=== PATIENT | male | born 1940 | race Caucasian/White ===

== ENCOUNTER 2020-10-01 07:10 | Outpatient (REF) | payer MEDICARE, SELFPAY ==
[2020-10-01 08:22] LABS: MANUAL DIFF FLAG NO
[2020-10-01 08:35] LABS: Basophils Percent Auto 0.3 % (0-2); Eosinophils Absolute Auto 0.3 X10*3/uL (0.0-0.4); Eosinophils Percent Auto 3.9 % (0-4); Hemoglobin 10.7 g/dl (14.0-18.0); Imm Gran Abs Auto 0.07 X10*3/uL (0.00-0.03); Lymphocytes Absolute Auto 1.9 X10*3/uL (1.2-4.9); Lymphocytes Percent Auto 28.5 % (20-40); Mean Corpuscular HGB Conc 32.4 g/dl (31.0-36.0); Mean Corpuscular Hemoglobin 29.6 pg (27.0-33.0); Mean Corpuscular Volume 91.4 fL (80-98); Mean Platelet Volume 11.4 fL (9.4-12.4); Monocytes Absolute Auto 0.4 X10*3/uL (0.1-1.2); Monocytes Percent Auto 6.5 % (2-11); Neutrophils Percent Auto 59.8 % (45-73); Platelet Count 141 X10*3/uL (160-400); Red Blood Count 3.61 X10*6/uL (4.60-5.80); Red Cell Distribution Width 12.1 % (11.0-16.0); White Blood Count 6.7 X10*3/uL (4.8-10.8)
[2020-10-01 09:07] LABS: Alanine Aminotransferase 24 U/L (0-40); Albumin Level 3.4 g/dL (3.5-5.0); Alkaline Phosphatase 126 U/L (39-117); Anion Gap 11 (12-20); Aspartate Amino Transferase 16 U/L (5-37); Bilirubin Total 0.4 mg/dL (0.0-1.0); Blood Urea Nitrogen 40 mg/dL (9-16); Calcium 8.7 mg/dL (8.4-10.2); Carbon Dioxide 21 mmol/L (22-29); Chloride 112 mmol/L (96-108); Estimated Glomerular Filt Rate 54; Glucose Fasting 167 mg/dL (60-99); Sodium 139 mmol/L (135-145); Total Protein 5.7 g/dL (6.5-8.0)
[2020-10-01 09:15] LABS: Thyroid Stimulating Hormone 2.01 uIU/mL (0.32-4.0)
== END 2020-10-01 07:11 | disposition home or self-care (01) ==
LOC: HO.HSH3E 07:10
PROVIDERS: Visit Provider Internal Medicine
DX: E11.9 Type 2 diabetes mellitus without complications (principal)
CPT/HCPCS: 36415; 80053; 84443; 85025

== ENCOUNTER 2020-10-15 05:43 | Outpatient (REF) | payer MEDICARE, SELFPAY ==
[2020-10-15 08:21] LABS: MANUAL DIFF FLAG NO
[2020-10-15 08:24] LABS: Basophils Percent Auto 0.3 % (0-2); Eosinophils Absolute Auto 0.2 X10*3/uL (0.0-0.4); Eosinophils Percent Auto 2.9 % (0-4); Hematocrit 30.3 % (42-52); Hemoglobin 10.1 g/dl (14.0-18.0); Imm Gran Abs Auto 0.04 X10*3/uL (0.00-0.03); Imm Gran Pct Auto 0.6 % (0.0-0.4); Lymphocytes Absolute Auto 2.1 X10*3/uL (1.2-4.9); Lymphocytes Percent Auto 31.7 % (20-40); Mean Corpuscular HGB Conc 33.3 g/dl (31.0-36.0); Mean Corpuscular Hemoglobin 30.6 pg (27.0-33.0); Mean Corpuscular Volume 91.8 fL (80-98); Mean Platelet Volume 11.5 fL (9.4-12.4); Monocytes Absolute Auto 0.6 X10*3/uL (0.1-1.2); Monocytes Percent Auto 9.6 % (2-11); Neutrophils Absolute Auto 3.6 X10*3/uL (2.0-8.3); Neutrophils Percent Auto 54.9 % (45-73); Platelet Count 109 X10*3/uL (160-400); Red Cell Distribution Width 12.5 % (11.0-16.0); White Blood Count 6.5 X10*3/uL (4.8-10.8)
[2020-10-15 09:21] LABS: Alanine Aminotransferase 16 U/L (0-40); Albumin Level 3.5 g/dL (3.5-5.0); Alkaline Phosphatase 116 U/L (39-117); Anion Gap 9 (12-20); Aspartate Amino Transferase 14 U/L (5-37); Bilirubin Total 0.3 mg/dL (0.0-1.0); Blood Urea Nitrogen 34 mg/dL (9-16); Calcium 8.4 mg/dL (8.4-10.2); Carbon Dioxide 23 mmol/L (22-29); Chloride 109 mmol/L (96-108); Estimated Glomerular Filt Rate 59; Glucose Fasting 108 mg/dL (60-99); Potassium 4.3 mmol/l (3.3-5.1); Sodium 137 mmol/L (135-145); Total Protein 5.6 g/dL (6.5-8.0)
[2020-10-15 09:28] LABS: Thyroid Stimulating Hormone 1.61 uIU/mL (0.32-4.0)
== END 2020-10-15 05:44 | disposition home or self-care (01) ==
LOC: HO.HSH3E 05:43
PROVIDERS: Visit Provider Internal Medicine Medical Oncology
DX: I10 Essential (primary) hypertension (principal)
CPT/HCPCS: 36415; 80053; 84443; 85025

== ENCOUNTER 2021-02-16 06:52 | Outpatient (REF) | payer MEDICARE, SELFPAY ==
[2021-02-16 08:48] LABS: Hematocrit 34.6 % (42-52); Hemoglobin 11.3 g/dl (14.0-18.0); Mean Corpuscular HGB Conc 32.7 g/dl (31.0-36.0); Mean Corpuscular Hemoglobin 30.1 pg (27.0-33.0); Mean Corpuscular Volume 92.3 fL (80-98); Platelet Count 141 X10*3/uL (160-400); Red Blood Count 3.75 X10*6/uL (4.60-5.80); Red Cell Distribution Width 12.8 % (11.0-16.0); White Blood Count 9.6 X10*3/uL (4.8-10.8)
[2021-02-16 09:14] LABS: Alanine Aminotransferase 18 U/L (0-40); Albumin Level 3.6 g/dL (3.5-5.0); Alkaline Phosphatase 120 U/L (39-117); Anion Gap 14 (12-20); Aspartate Amino Transferase 13 U/L (5-37); Bilirubin Total 0.9 mg/dL (0.0-1.0); Blood Urea Nitrogen 29 mg/dL (9-16); Calcium 9.1 mg/dL (8.4-10.2); Carbon Dioxide 20 mmol/L (22-29); Chloride 107 mmol/L (96-108); Cholesterol 110 mg/dL; Estimated Glomerular Filt Rate 46; Glucose Random 182 mg/dL (60-115); HDL Cholesterol 20 mg/dL; LDL Cholesterol Calculated 68 mg/dl; Sodium 136 mmol/L (135-145); Total Protein 5.9 g/dL (6.5-8.0); Triglycerides 112 mg/dL
[2021-02-16 09:39] LABS: Erythrocyte Sedimentation Rate 22 MM/HR (0-15)
[2021-02-16 10:29] LABS: Estimated Average Glucose 186 mg/dL; Hemoglobin A1c % 8.1 %
[2021-02-16 17:36] LABS: Creatinine Urine 116.75 mg/dL; Microalbum/Creatinine Ratio Ur 79.6 ug/mg cr
== END 2021-02-16 06:53 | disposition home or self-care (01) ==
LOC: HO.HSH3E 06:52
PROVIDERS: Visit Provider Internal Medicine Medical Oncology
DX: I12.9 Hypertensive chronic kidney disease with stage 1 through stage 4 chronic kidney disease, or unspecified chronic kidney disease (principal); N18.9 Chronic kidney disease, unspecified; E11.22 Type 2 diabetes mellitus with diabetic chronic kidney disease
CPT/HCPCS: 36415; 80053; 80061; 82043; 83036; 85027; 85652

== ENCOUNTER 2021-05-19 16:51 | Outpatient (REF) | payer MEDICARE, SELFPAY ==
[2021-05-19 17:00] LABS: Glucose Urine UA 100 MG/DL (NEG); Leukocyte Esterase Urine NEG (NEG); Nitrite Urine NEG (NEG); Specific Gravity - Urine 1.015 (1.005-1.025); Urine Blood NEG (NEG); Urine Ketones NEG (NEG); Urine Protein NEG (NEG-TRACE)
[2021-05-19 17:02] LABS: Appearance Urine CLEAR; Color Urine YELLOW
== END 2021-05-19 16:52 | disposition home or self-care (01) ==
LOC: HO.HSH3E 16:51
PROVIDERS: Visit Provider Internal Medicine Medical Oncology
DX: R33.9 Retention of urine, unspecified (principal)
CPT/HCPCS: 81003

== ENCOUNTER 2021-09-21 10:59 | Emergency (ER) | payer MEDICARE, SELFPAY ==
[2021-09-21 11:16] VITALS: BP 110/62; PULSE 64; O2SAT 97; BMI 24.2
--- NOTE | 2021-09-21 11:19 | ED_ITS ---
HPI - Psych General Chief Complaint: Psychiatric Symptoms Stated Complaint: SECTION 12 Time Seen by Provider: 09/21/21 11:17 Source: patient and EMS History of Present Illness HPI Narrative: Mr. Lobo is a very pleasant 81 years old from the skilled nursing on a Section 12 because of SI. He denies SI to me right now he states that he feels good he to me that he will not commit suicide complaint: feels depressed Onset (ago): day(s) (2) Duration: resolved prior to arrival History of same: Yes Relieving factors: none Associated psychiatric symptoms: none Related Data Allergies Allergy/AdvReac Type Severity Reaction Status Date / Time No Known Allergies Allergy Verified 09/21/21 11:21 Review of Systems Constitutional: Constitutional: Reports no additional constitutional complaints Cardiovascular: Cardiovascular: Reports no additional cardiovascular complaints Respiratory: Respiratory: Reports no additional respiratory complaints Musculoskeletal: Musculoskeletal: Reports no additional musculoskeletal complaints Neurologic: Reports system reviewed and no additional complaints, except as documented Psychiatric: Psychiatric: Reports as per HPI and Reports depression [facility] Past Medical History [facility] Narrative: Peripheral vascular disease, hypercholesterolemia, hypertension, diabetes, 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 Social History Social History Alcohol intake: never Patient Tobacco Use Status: Never used Tobacco Use of substances other than those prescribed or required for medical reasons: No Advance Directives: No Advance Directives Information Provided: Yes Physical Exam Vital Signs: Vital Signs: BMI result Body Mass Index 24.2 Const: Other: He looks well he is no toxic-appearing he is very pleasant General: cooperative and comfortable Orientation/consciousness: oriented to person, oriented to place, oriented to time and patient oriented x3 HENMT: Head: Yes normal to inspection General nose exam: Normal external n ose present Face and sinus: Yes normal facial exam Mouth: Normal oral and palatal mucosa present Throat: Yes posterior oropharynx normal Neck: Neck: Yes normal visual inspection Chest: Chest palpation & inspection: normal inspection of the chest Resp: Effort & Inspection: normal respiratory effort Auscultation: clear to auscultation bilaterally Cardio: Jugular venous distension: no JVD Rate: regular rate GI: Inspection: Yes normal to inspection Palpation (GI): Soft to palpation, not firm and nontender Skin: General skin exam: no rashes or lesions noted and elasticity normal Neuro: General: oriented to person, oriented to place, oriented to time and patient oriented x3 Extrem: Other: Status post left AKA Course Reevaluation(s) Reevaluation #1: pt was evaluate by Crisis no Si at this time OK to go back to [place] MDM - Psych MDM Narrative Medical decision making narrative: Plan is to get a psychiatric evaluation I anticipate discharge back to skilled nursing because he is no SI Discharge Plan Discharge Clinical Impression: Depression Patient Disposition: Xfer SNF Instructions: Depression (ED) Interventions: ED Discharge Assessment Last Done: 09/21/21 14:56 Discharge Date/Time: 09/21/21 14:57
--- NOTE | 2021-09-21 12:43 | PC.NURSE ---
care team at bedside speaking with patient.
--- NOTE | 2021-09-21 14:01 | MHC.CARE ---
Pt is a 81 y/o Uzbek speaking, male who is previously unknown to the CARE Team.? Today, pt was transported to the ED via ambulance after making concerning statements to staff at the [facility] in [facility] where pt is a resident.? Pt has been medically cleared and is being assessed by the CARE Team to determine appropriate treatment recommendations. No past documented hx of mental illness, substance use or suicide attempts.? ?Pt is screened for crisis at bedside in the ED after receiving a CARE Team consult.? Pt had previously denied suicidal ideation to ED provider Dr. Troncoso.? Pt continues to deny SI to CARE Team.? Pt allegedly stated to [facility] staff ?I would shoot myself if I had a gun?.? When asked about the statement pt stated that ?I wanted to get out of that long-term!?? Pt stated that if he had a gun, he would shoot himself, if he had to ?Stay there the rest of my life.?? Pt stated that his roommate recently passed.? ?They just wait for one to , then put another one in.?? This was in relation to roommates.? ?? Pt stated he was depressed and has been for 10 years. CARE Team contacts [facility] Skate Boarder Fe Lopez who stated that pt had been residing at the [facility] home for approximately 2 years and had come to them from a rehab facility.? Since his admission to the [facility], pt has had the same roommate for the entire time.? Pt recently had a new roommate move in after his previous one in July.? She stated that he has been more depressed lately than he has been and had made a similar statement regarding a firearm to his daughter and grandson when they came to visit.? Pt has been requesting to return home but even with 24 hour care in the home, pt cannot safely function. Pt has experience a great deal of change of late, which may contribute to his elevated depression.? Pt?s daughter recently moved into his home, he lost a high school friend recently, and his roommate .? Ms. Lopez reports that pt had been teary eyed and weepy with her when last they met.? He is normally isolative, appearing content with watching TV and drinking coffee in his room.? He does have friends at the facility that will stop and visit with his throughout the day and bring him snacks. Plan is for pt to be discharged back to the [facility].? He does not meet inpatient criteria and there does not appear to be an imminent threat to his or others? safety.? This disposition is discussed with and agreed upon by ED attending physician, Dr. Troncoso and CARE Adult Crossing Guard Narinder Purcell [facility].
== END 2021-09-21 14:57 | disposition skilled nursing facility (03) ==
PROVIDERS: Emergency Provider Emergency Medicine
DX: F32.A Depression, unspecified (principal); I10 Essential (primary) hypertension; E11.9 Type 2 diabetes mellitus without complications; Z89.612 Acquired absence of left leg above knee
CPT/HCPCS: 99284

== ENCOUNTER 2022-01-11 08:27 | Outpatient (REF) | payer MEDICARE, SELFPAY ==
[2022-01-11 08:44] LABS: MANUAL DIFF FLAG NO
[2022-01-11 08:48] LABS: Basophils Percent Auto 0.3 % (0-2); Eosinophils Absolute Auto 0.2 X10*3/uL (0.0-0.4); Eosinophils Percent Auto 2.2 % (0-4); Hematocrit 34.3 % (42.0-52.0); Hemoglobin 11.5 g/dl (14.0-18.0); Imm Gran Abs Auto 0.06 X10*3/uL (0.00-0.03); Imm Gran Pct Auto 0.7 % (0.0-0.4); Lymphocytes Absolute Auto 1.6 X10*3/uL (1.2-4.9); Lymphocytes Percent Auto 18.3 % (20-40); Mean Corpuscular HGB Conc 33.5 g/dl (31.0-36.0); Mean Corpuscular Hemoglobin 30.8 pg (27.0-33.0); Mean Platelet Volume 10.7 fL (9.4-12.4); Monocytes Absolute Auto 0.5 X10*3/uL (0.1-1.2); Monocytes Percent Auto 5.2 % (2-11); Neutrophils Absolute Auto 6.5 x10*3/uL (2.0-8.3); Neutrophils Percent Auto 73.3 % (45-73); Platelet Count 138 X10*3/uL (160-400); Red Blood Count 3.73 X10*6/uL (4.60-5.80); Red Cell Distribution Width 12.8 % (11.0-16.0); White Blood Count 8.8 X10*3/uL (4.8-10.8)
[2022-01-11 09:22] LABS: Alanine Aminotransferase 25 U/L (0-40); Albumin Level 3.6 g/dL (3.5-5.0); Alkaline Phosphatase 106 U/L (39-117); Anion Gap 11 (12-20); Aspartate Amino Transferase 20 U/L (5-37); Bilirubin Total 0.3 mg/dL (0.0-1.0); Blood Urea Nitrogen 28 mg/dL (9-16); Calcium 9.5 mg/dL (8.4-10.2); Carbon Dioxide 22 mmol/L (22-29); Chloride 108 mmol/L (96-108); Estimated Glomerular Filt Rate 52; Glucose Random 236 mg/dL (60-115); Lipase 23 U/L (8-78); Potassium 4.9 mmol/L (3.3-5.1); Sodium 136 mmol/L (135-145); Total Protein 6.4 g/dL (6.5-8.0)
[2022-01-11 09:26] LABS: Amylase 66 U/L (28-100)
== END 2022-01-11 08:28 | disposition home or self-care (01) ==
LOC: HO.HSH3E 08:27
PROVIDERS: Visit Provider Internal Medicine Medical Oncology
DX: R10.9 Unspecified abdominal pain (principal); R11.10 Vomiting, unspecified
CPT/HCPCS: 36415; 80053; 82150; 83690; 85025

== ENCOUNTER 2022-02-08 05:43 | Outpatient (REF) | payer MEDICARE, SELFPAY ==
[2022-02-08 07:38] LABS: MANUAL DIFF FLAG NO
[2022-02-08 07:41] LABS: Basophils Percent Auto 0.4 % (0-2); Eosinophils Absolute Auto 0.3 X10*3/uL (0.0-0.4); Eosinophils Percent Auto 3.5 % (0-4); Hematocrit 32.9 % (42.0-52.0); Hemoglobin 10.9 g/dl (14.0-18.0); Imm Gran Abs Auto 0.04 X10*3/uL (0.00-0.03); Imm Gran Pct Auto 0.5 % (0.0-0.4); Lymphocytes Absolute Auto 1.9 X10*3/uL (1.2-4.9); Lymphocytes Percent Auto 24.7 % (20-40); Mean Corpuscular HGB Conc 33.1 g/dl (31.0-36.0); Mean Corpuscular Hemoglobin 30.4 pg (27.0-33.0); Mean Corpuscular Volume 91.9 fL (80.0-98.0); Mean Platelet Volume 11.2 fL (9.4-12.4); Monocytes Absolute Auto 0.6 X10*3/uL (0.1-1.2); Monocytes Percent Auto 7.7 % (2-11); Neutrophils Absolute Auto 4.9 x10*3/uL (2.0-8.3); Neutrophils Percent Auto 63.2 % (45-73); Platelet Count 117 X10*3/uL (160-400); Red Blood Count 3.58 X10*6/uL (4.60-5.80); Red Cell Distribution Width 12.9 % (11.0-16.0); White Blood Count 7.8 X10*3/uL (4.8-10.8)
[2022-02-08 07:54] LABS: Alanine Aminotransferase 23 U/L (0-40); Albumin Level 3.4 g/dL (3.5-5.0); Alkaline Phosphatase 94 U/L (39-117); Anion Gap 10 (12-20); Aspartate Amino Transferase 14 U/L (5-37); Bilirubin Total 0.4 mg/dL (0.0-1.0); Blood Urea Nitrogen 33 mg/dL (9-16); Calcium 9.2 mg/dL (8.4-10.2); Carbon Dioxide 23 mmol/L (22-29); Chloride 107 mmol/L (96-108); Estimated Glomerular Filt Rate 46; Glucose Fasting 209 mg/dL (60-99); Lipase 19 U/L (8-78); Potassium 4.6 mmol/L (3.3-5.1); Sodium 135 mmol/L (135-145); Total Protein 5.9 g/dL (6.5-8.0)
[2022-02-08 07:57] LABS: Amylase 57 U/L (28-100)
[2022-02-08 08:15] LABS: Erythrocyte Sedimentation Rate 14 MM/HR (0-15)
== END 2022-02-08 05:44 | disposition home or self-care (01) ==
LOC: HO.HSH3E 05:43
PROVIDERS: Visit Provider Internal Medicine Medical Oncology
DX: K85.90 Acute pancreatitis without necrosis or infection, unspecified (principal)
CPT/HCPCS: 36415; 80053; 82150; 83690; 85025; 85652

== ENCOUNTER 2022-06-14 07:53 | Outpatient (REF) | payer MEDICARE, SELFPAY | END 2022-06-14 07:54 | disposition home or self-care (01) | LOC: HO.HSH3E 07:53 | PROVIDERS: Visit Provider Internal Medicine Medical Oncology | DX: Z13.89 Encounter for screening for other disorder (principal) ==

== ENCOUNTER 2022-09-22 11:16 | Outpatient (REF) | payer MEDICARE, SELFPAY ==
[2022-09-22 13:40] LABS: Anion Gap 13 (12-20); Blood Urea Nitrogen 37 mg/dL (9-16); Calcium 8.4 mg/dL (8.4-10.2); Carbon Dioxide 19 mmol/L (22-29); Chloride 110 mmol/L (96-108); Estimated Glomerular Filt Rate 40; Glucose Random 293 mg/dL (60-115); Potassium 4.6 mmol/L (3.3-5.1); Sodium 137 mmol/L (135-145)
== END 2022-09-22 11:17 | disposition home or self-care (01) ==
LOC: HO.HSH1N 11:16
PROVIDERS: Visit Provider Internal Medicine Interventional Cardiology
DX: U07.1 COVID-19 (principal); N18.30 Chronic kidney disease, stage 3 unspecified
CPT/HCPCS: 36415; 80048

== ENCOUNTER 2022-09-23 11:26 | Outpatient (REF) | payer MEDICARE, SELFPAY ==
[2022-09-23 08:05] LABS: MANUAL DIFF FLAG NO
[2022-09-23 08:07] LABS: Basophils Percent Auto 0.4 % (0-2); Eosinophils Absolute Auto 0.2 X10*3/uL (0.0-0.4); Eosinophils Percent Auto 3.1 % (0-4); Hematocrit 30.4 % (42.0-52.0); Hemoglobin 10.2 g/dl (14.0-18.0); Imm Gran Abs Auto 0.06 X10*3/uL (0.00-0.03); Imm Gran Pct Auto 1.1 % (0.0-0.4); Lymphocytes Absolute Auto 1.3 X10*3/uL (1.2-4.9); Lymphocytes Percent Auto 24.2 % (20-40); Mean Corpuscular HGB Conc 33.6 g/dl (31.0-36.0); Mean Corpuscular Hemoglobin 30.7 pg (27.0-33.0); Mean Corpuscular Volume 91.6 fL (80.0-98.0); Mean Platelet Volume 11.2 fL (9.4-12.4); Monocytes Absolute Auto 0.8 X10*3/uL (0.1-1.2); Monocytes Percent Auto 14.1 % (2-11); Neutrophils Absolute Auto 3.2 x10*3/uL (2.0-8.3); Neutrophils Percent Auto 57.1 % (45-73); Red Blood Count 3.32 X10*6/uL (4.60-5.80); Red Cell Distribution Width 13.2 % (11.0-16.0); White Blood Count 5.5 X10*3/uL (4.8-10.8)
[2022-09-23 08:09] LABS: Platelet Count 96 X10*3/uL (160-400)
[2022-09-23 08:32] LABS: Albumin Level 3.4 g/dL (3.5-5.0)
[2022-09-23 08:40] LABS: Cholesterol 116 mg/dL; HDL Cholesterol 20 mg/dL; LDL Cholesterol Calculated 76 mg/dl; Triglycerides 102 mg/dL
[2022-09-23 08:41] LABS: Estimated Average Glucose 186 mg/dL; Hemoglobin A1c % 8.1 %
[2022-09-23 14:17] LABS: PSA,Total (Free>4and<10) 3.09 ng/mL (0.00-4.00)
== END 2022-09-23 11:27 | disposition home or self-care (01) ==
LOC: HO.HSH1N 11:26
PROVIDERS: Visit Provider Internal Medicine Interventional Cardiology
DX: Z12.5 Encounter for screening for malignant neoplasm of prostate (principal); U07.1 COVID-19
CPT/HCPCS: 36415; 80061; 82040; 83036; 84153; 85025

== ENCOUNTER 2023-01-10 06:50 | Outpatient (REF) | payer MEDICARE, SELFPAY ==
[2023-01-10 07:21] LABS: MANUAL DIFF FLAG NO
[2023-01-10 07:29] LABS: Basophils Percent Auto 0.4 % (0-2); Eosinophils Absolute Auto 0.2 X10*3/uL (0.0-0.4); Eosinophils Percent Auto 3.6 % (0-4); Hematocrit 30.2 % (42.0-52.0); Hemoglobin 9.8 g/dl (14.0-18.0); Imm Gran Abs Auto 0.03 X10*3/uL (0.00-0.03); Imm Gran Pct Auto 0.4 % (0.0-0.4); Lymphocytes Absolute Auto 1.5 X10*3/uL (1.2-4.9); Lymphocytes Percent Auto 21.7 % (20-40); Mean Corpuscular HGB Conc 32.5 g/dl (31.0-36.0); Mean Corpuscular Hemoglobin 30.2 pg (27.0-33.0); Mean Corpuscular Volume 93.2 fL (80.0-98.0); Mean Platelet Volume 10.5 fL (9.4-12.4); Monocytes Absolute Auto 0.5 X10*3/uL (0.1-1.2); Monocytes Percent Auto 7.6 % (2-11); Neutrophils Absolute Auto 4.4 x10*3/uL (2.0-8.3); Neutrophils Percent Auto 66.3 % (45-73); Platelet Count 109 X10*3/uL (160-400); Red Blood Count 3.24 X10*6/uL (4.60-5.80); Red Cell Distribution Width 12.8 % (11.0-16.0); White Blood Count 6.7 X10*3/uL (4.8-10.8)
[2023-01-10 08:00] LABS: Alanine Aminotransferase 10 U/L (0-40); Albumin Level 3.3 g/dL (3.5-5.0); Alkaline Phosphatase 104 U/L (39-117); Anion Gap 9 (12-20); Aspartate Amino Transferase 11 U/L (5-37); Bilirubin Total 0.3 mg/dL (0.0-1.0); Blood Urea Nitrogen 35 mg/dL (9-16); Calcium 8.5 mg/dL (8.4-10.2); Carbon Dioxide 22 mmol/L (22-29); Chloride 110 mmol/L (96-108); Cholesterol 119 mg/dL; Estimated Glomerular Filt Rate 37; Glucose Fasting 302 mg/dL (60-99); HDL Cholesterol 19 mg/dL; LDL Cholesterol Calculated 75 mg/dl; Potassium 5.2 mmol/L (3.3-5.1); Sodium 136 mmol/L (135-145); Total Protein 5.6 g/dL (6.5-8.0); Triglycerides 125 mg/dL
[2023-01-10 08:15] LABS: Prostate Specific Antigen 5.21 ng/mL (<0.05-4.0)
[2023-01-10 08:24] LABS: Estimated Average Glucose 180 mg/dL; Hemoglobin A1c % 7.9 %
== END 2023-01-10 06:51 | disposition home or self-care (01) ==
LOC: HO.HSH 06:50
PROVIDERS: Visit Provider Internal Medicine Medical Oncology
DX: Z12.5 Encounter for screening for malignant neoplasm of prostate (principal); E11.9 Type 2 diabetes mellitus without complications; N18.30 Chronic kidney disease, stage 3 unspecified; E78.5 Hyperlipidemia, unspecified
CPT/HCPCS: 36415; 80053; 80061; 83036; 84153; 85025

== ENCOUNTER 2023-05-03 06:01 | Outpatient (REF) | payer MEDICARE, SELFPAY | END 2023-05-03 06:02 | disposition home or self-care (01) | LOC: HO.HSH3E 06:01 | PROVIDERS: Visit Provider Internal Medicine Medical Oncology | DX: Z13.89 Encounter for screening for other disorder (principal) ==

== ENCOUNTER 2023-05-31 09:51 | Outpatient (AMB) | payer MEDICARE, SELFPAY ==
--- NOTE | 2023-05-31 11:08 | HO.VETSHOME ---
Intake Intake Visit Reasons: Elevated PSA/Hx of retention Allergies No Known Allergies Allergy (Verified 05/31/23 21:45) Medication List - Last Reconciled 06/01/23 by ISAURO Zuniga-TOMAS atorvastatin 10 mg PO BEDTIME doxazosin 2 mg PO DAILY folic acid 1 mg PO DAILY insulin glargine 39 units subcut QDAY insulin lispro 6 units subcut .at noon labetalol 50 mg PO BID losartan 50 mg PO DAILY polyethylene glycol 3350 17 grams PO DAILY tamsulosin 0.8 mg PO BEDTIME HPI HPI Comments History of Present Illness Details Ed is a 82-year-old male patient who resides at [facility]. He has a past medical history of left leg [id number] amputation, atherosclerotic heart disease, BPH, chronic AFib, chronic kidney disease stage 3, hypertension, GERD, hyperlipidemia, depression, PVD, urinary retention, type 2 diabetes, osteoarthritis, and dementia. He is being followed up on today as a new patient for his history of urinary retention and elevated PSA. In discussion with the patient today he reports to be doing and feeling well. He discusses previously following up with a urology office in [place] for ongoing urinary issues. He discusses having urinary retention and incomplete bladder emptying in the past. In review of patient's chart it appears patient with previous bladder scans noting postvoid residuals of 250 to approximately 600mls. Patient with a previous history of indwelling Ni catheter approximately 2 years ago for urinary retention. Patient is currently on doxazosin 2 mg daily and tamsulosin 0.8 mg daily. In review of patient's chart it appears PSA 01/15--5.2. Discussed at length potential causes and affects of incomplete bladder emptying and urinary retention. Discussed obtaining redraw of PSA with no caffeine morning of, no sex/ejaculation the night before, no heavy lifting 1-2 days prior. Discussed obtaining retroperitoneal ultrasound for further assessment evaluation. He otherwise denies hematuria, dysuria, foul smelling urine, changes to urinary stream, flank pain, fever, and or chills. KATHRYN performed; smooth; no masses, or nodules palpated. Call to patient's son to discuss plan of care. All questions were answered. He is agreeable to obtaining retroperitoneal ultrasound and redraw of PSA at this time. [facility] Medical History (Updated 05/31/23 @ 22:00 by Purnima Pineda [facility]) Chronic atrial fibrillation, unspecified Unspecified dementia, unspecified severity, without behavioral disturbance, psychotic disturbance, mood disturbance, and anxiety Gastro-esophageal reflux disease without esophagitis Major depressive disorder, recurrent, mild Unspecified osteoarthritis, unspecified site Type 2 diabetes mellitus without complications Personal history of COVID-19 Type 2 diabetes mellitus with other circulatory complications Chronic kidney disease, stage 3 unspecified Essential (primary) hypertension Retention of urine, unspecified Hyperlipidemia, unspecified Benign prostatic hyperplasia without lower urinary tract symptoms Atherosclerotic heart disease of [place] coronary artery without angina pectoris jail (current) use of insulin Acquired absence of left leg below knee Peripheral vascular disease, unspecified Surgical History (Updated 05/31/23 @ 12:07 by Raymond Borrego) Presence of aortocoronary bypass graft Social History Alcohol intake: never Patient Tobacco Use Status: Never used Tobacco Assessment & Plan Assessment & Plan (1) Incomplete bladder emptying: Code(s): R33.9 - Retention of urine, unspecified (2) Elevated PSA: Code(s): R97.20 - Elevated prostate specific antigen [PSA] (3) Retention of urine, unspecified: Code(s): R33.9 - Retention of urine, unspecified Plan Discussed obtaining redraw of PSA free and total; with no caffeine morning of, no heavy lifting 1-2 days prior, and no sex/masturbation night before lab draw. Discussed obtaining retroperitoneal ultrasound for further assessment evaluation. Discussed at length potential causes and affects of urinary retention and incomplete bladder emptying. Call to patient's son to discuss plan of care Continue doxazosin 2 mg daily and flomax 0.8mg as prescribed All questions were answered Follow-up once imaging and labs are completed; or sooner with any questions, concerns, and or issues. Patient Instructions: The patient had an opportunity to ask questions regarding the treatment plan. All questions were answered. Physical exam, labs, and imaging were discussed and reviewed in detail. As well as risks, benefits, and discussion of treatment choices. No major barriers to understanding were identified. The patient expressed understanding and agreement with the above treatment plan. The patient was made aware they should contact our office by phone for worsening of their current condition, the appearance of new symptoms, or with any questions or concerns. Compliance is encouraged with any medications and follow up testing that is ordered. It is a privilege to be allowed the opportunity to participate in? your urological care.? Again, if you have any questions or concerns If you have any questions or concerns please do not hesitate to contact me. The office is [phone]. This note is constructed using voice recognition software. While every effort has been made to ensure accuracy rating clerk errors may have been included. Yours sincerely, BETHANY Zuniga Coding Level of Care Code 69895-[id number] Fac initial, low Diagnoses Incomplete bladder emptying R33.9 Elevated PSA R97.20 Retention of urine, unspecified R33.9 Time Spent (min) 25
== END 2023-05-31 13:30 | disposition home or self-care (01) ==
LOC: HO.HUSV 09:51
PROVIDERS: Visit Provider Nurse Practitioner Family
DX: R33.9 Retention of urine, unspecified (principal); R97.20 Elevated prostate specific antigen [PSA]
CPT/HCPCS: 99304

== ENCOUNTER 2023-06-02 06:25 | Outpatient (REF) | payer MEDICARE, SELFPAY ==
[2023-06-04 11:13] LABS: Free Prostate Spec Ag 0.8 ng/mL; Percent Free Prostate Spec Ag 30 % (calc) (>25); Prostate Specific Ag Total 2.7 ng/mL (< OR = 4.0)
== END 2023-06-02 06:26 | disposition home or self-care (01) ==
LOC: HO.HSH3E 06:25
PROVIDERS: Visit Provider Nurse Practitioner Acute Care
DX: N40.0 Benign prostatic hyperplasia without lower urinary tract symptoms (principal); E11.9 Type 2 diabetes mellitus without complications
CPT/HCPCS: 36415; 84154

== ENCOUNTER 2023-06-20 05:38 | Outpatient (REF) | payer MEDICARE, SELFPAY ==
[2023-06-20 07:08] LABS: MANUAL DIFF FLAG NO
[2023-06-20 07:25] LABS: Basophils Percent Auto 0.3 % (0-2); Eosinophils Absolute Auto 0.2 X10*3/uL (0.0-0.4); Eosinophils Percent Auto 3.7 % (0-4); Hematocrit 31.5 % (42.0-52.0); Hemoglobin 10.6 g/dl (14.0-18.0); Imm Gran Abs Auto 0.04 X10*3/uL (0.00-0.03); Imm Gran Pct Auto 0.6 % (0.0-0.4); Lymphocytes Absolute Auto 1.7 X10*3/uL (1.2-4.9); Lymphocytes Percent Auto 25.1 % (20-40); Mean Corpuscular HGB Conc 33.7 g/dl (31.0-36.0); Mean Corpuscular Hemoglobin 30.8 pg (27.0-33.0); Mean Corpuscular Volume 91.6 fL (80.0-98.0); Mean Platelet Volume 11.1 fL (9.4-12.4); Monocytes Absolute Auto 0.6 X10*3/uL (0.1-1.2); Monocytes Percent Auto 9.3 % (2-11); Platelet Count 124 X10*3/uL (160-400); Red Blood Count 3.44 X10*6/uL (4.60-5.80); Red Cell Distribution Width 12.7 % (11.0-16.0); White Blood Count 6.6 X10*3/uL (4.8-10.8)
[2023-06-20 07:26] LABS: Estimated Average Glucose 169 mg/dL; Hemoglobin A1c % 7.5 % (<6.0)
[2023-06-20 07:36] LABS: Alanine Aminotransferase 22 U/L (0-40); Albumin Level 3.3 g/dL (3.5-5.0); Alkaline Phosphatase 109 U/L (39-117); Anion Gap 12 (12-20); Aspartate Amino Transferase 19 U/L (5-37); Bilirubin Total 0.3 mg/dL (0.0-1.0); Blood Urea Nitrogen 32 mg/dL (9-16); Calcium 9.1 mg/dL (8.4-10.2); Carbon Dioxide 20 mmol/L (22-29); Chloride 111 mmol/L (96-108); Cholesterol 113 mg/dL (<200); Estimated Glomerular Filt Rate 45; Glucose Fasting 99 mg/dL (60-99); HDL Cholesterol 21 mg/dL (>40); LDL Cholesterol Calculated 75 mg/dL (<100); Potassium 5.4 mmol/L (3.3-5.1); Sodium 138 mmol/L (135-145); Triglycerides 89 mg/dL (<150)
[2023-06-20 07:49] LABS: Creatinine Urine 27.52 mg/dL; Microalbum/Creatinine Ratio Ur 457.8 ug/mg cr (<30)
[2023-06-20 07:52] LABS: Vitamin D 25-OH Total 26.2 ng/mL (>30)
== END 2023-06-20 05:39 | disposition home or self-care (01) ==
LOC: HO.HSH3E 05:38
PROVIDERS: Visit Provider Internal Medicine Medical Oncology
DX: N18.30 Chronic kidney disease, stage 3 unspecified (principal); E11.9 Type 2 diabetes mellitus without complications; E78.5 Hyperlipidemia, unspecified
CPT/HCPCS: 36415; 80053; 80061; 82043; 82306; 82570; 83036; 85025

== ENCOUNTER 2023-06-28 09:35 | Outpatient (AMB) | payer MEDICARE, SELFPAY ==
--- NOTE | 2023-06-26 09:53 | A.OFFVIS_ITS ---
Intake Intake Visit Reasons: labs- follow up Intake Note: [facility] Patient Present for LAB Follow up Urology Med: Doxazosin, Tamsulosin Antibiotic Allergy: None Blood Thinner: None Allergies No Known Allergies Allergy (Verified 06/26/23 09:55) HPI HPI Comments History of Present Illness Details Yong is a pleasant male. He is a resident of [facility]. He seen for the following urologic conditions - lower urinary tract symptoms with inco mplete bladder emptying - elevated PSA Repeat PSA 06/17 2.7 Recommend add finasteride Encourage double voiding Six month follow-up PVR Lower urinary tract symptoms Previously seen by Urology in [place] Prior urinary retention in PVR ranging from 250-600 cc Prior history of indwelling Ni catheter 2020 for urinary retention Current medications include doxazosin 2 mg and tamsulosin 0.8 mg PSA 01/15 5.2 Imaging - 06/17 bladder ultrasound incomplete bladder emptying [facility] Medical History Chronic atrial fibrillation, unspecified Unspecified dementia, unspecified severity, without behavioral disturbance, psychotic disturbance, mood disturbance, and anxiety Gastro-esophageal reflux disease without esophagitis Major depressive disorder, recurrent, mild Unspecified osteoarthritis, unspecified site Type 2 diabetes mellitus without complications Personal history of COVID-19 Type 2 diabetes mellitus with other circulatory complications Chronic kidney disease, stage 3 unspecified Essential (primary) hypertension Retention of urine, unspecified Hyperlipidemia, unspecified Benign prostatic hyperplasia without lower urinary tract symptoms Atherosclerotic heart disease of [place] coronary artery without angina pectoris intermediate (current) use of insulin Acquired absence of left leg below knee Peripheral vascular disease, unspecified Surgical History Presence of aortocoronary bypass graft Social History Alcohol intake: never Patient Tobacco Use Status: Never used Tobacco Review of Systems Const Denies chills and Denies fever(s) Card Reports no additional complaints and Denies syncope Resp Denies cough GI Denies abdominal pain and Denies heartburn Reports as per HPI and Denies change in libido Neuro Denies syncope Psych Denies change in libido Endo Denies change in libido Physical Exam Const General: cooperative, healthy appearing, comfortable and no acute distress Orientation/consciousness: patient oriented x3 HEENT Face and sinus: Yes normal facial exam Mouth: moist mucous membranes Neck Neck: Yes normal visual inspection, Yes full ROM and Yes trachea midline Chest Chest palpation & inspection: normal inspection of the chest Resp Effort & Inspection: normal respiratory effort, able to speak in complete sentences and no respiratory distress GI Inspection: Yes normal to inspection Back/Spine/Pelvis Cervical Spine: normal cervical lordosis Thoracic/Lumbar Spine: thoracic and lumbar spine normal to inspection Skin General skin exam: no rashes or lesions noted Neuro General: patient oriented x3, gait normal, tone normal and moves all extremities Extrem General: Yes normal to inspection and Yes capillary refill normal Assessment & Plan Assessment & Plan (1) Elevated PSA: Code(s): R97.20 - Elevated prostate specific antigen [PSA] (2) Incomplete bladder emptying: Code(s): R33.9 - Retention of urine, unspecified Plan Start finasteride 6 month follow-up Patient Instructions: Imaging studies, laboratory and physical exam results were discussed and reviewed in detail. No major barriers to patient understanding were identified. An opportunity to ask questions regarding the treatment plan was provided. All questions were answered. The patient expressed understanding and agreement with the above treatment plan. The patient is aware they should contact our office by phone for worsening of their current condition or the appearance of new urologic symptoms. Compliance is encouraged with any medications and followup testing that is ordered. It is a privilege to participate in the urologic care of your patient. If you have any questions or concerns regarding treatment for the above conditions, or other urologic issues, please do not hesitate to contact me. The office telephone contact is [phone]. This note is constructed using voice recognition software. While every effort has been made to ensure accuracy hvac sheet metal installer errors may have been included. Yours sincerely, Dr Maurice Lanza MD, [facility] - Urology Providers of Expert, Compassionate Care for the Genitourinary System Coding Level of Care Code 67839-[id number] Fac sub, mod Diagnoses Elevated PSA R97.20 Incomplete bladder emptying R33.9
== END 2023-06-28 16:31 | disposition home or self-care (01) ==
LOC: HO.HUSV 09:35
PROVIDERS: Visit Provider Urology
DX: R97.20 Elevated prostate specific antigen [PSA] (principal); R33.9 Retention of urine, unspecified
CPT/HCPCS: 99309

== ENCOUNTER 2023-10-04 15:19 | Outpatient (REF) | payer MEDICARE, SELFPAY ==
[2023-10-04 15:47] LABS: Appearance Urine Turbid; Color Urine Yellow; Glucose Urine UA >=1000 mg/dL (Negative); Leukocyte Esterase Urine Moderate (2+) (Negative); Nitrite Urine Negative (Negative); Specific Gravity - Urine 1.015 (1.005-1.025); UMIC TRIGGER UA YES; Urine Blood Moderate (2+) (Negative); Urine Ketones Negative (Negative); Urine Protein 30 (1+) mg/dL (Neg-Trace)
[2023-10-04 16:32] LABS: Bacteria Urine 4+ (None Seen); Hyaline Casts Urine 0-2 /LPF (0-2); Squamous Epithelial Cell Urine 0-2 /HPF (0-2); WBC Urine >50 /HPF (0-5)
== END 2023-10-04 15:20 | disposition home or self-care (01) ==
LOC: HO.HSH3E 15:19
PROVIDERS: Visit Provider Internal Medicine Medical Oncology
DX: R82.90 Unspecified abnormal findings in urine (principal)
CPT/HCPCS: 81001; 87086

== ENCOUNTER 2023-10-10 08:37 | Outpatient (REF) | payer MEDICARE, SELFPAY ==
[2023-10-10 08:47] LABS: Appearance Urine Turbid; Color Urine Yellow; Glucose Urine UA 500 mg/dL (Negative); Leukocyte Esterase Urine Large (3+) (Negative); Nitrite Urine Negative (Negative); PH 5.5 (5.0-9.0); UMIC TRIGGER UACC YES; Urine Blood Moderate (2+) (Negative); Urine Ketones Negative (Negative); Urine Protein 30 (1+) mg/dL (Neg-Trace)
[2023-10-10 09:10] LABS: Bacteria Urine 4+ (None Seen); Hyaline Casts Urine 0-2 /LPF (0-2); RBC Urine 0-2 /HPF (0-2); Squamous Epithelial Cell Urine 0-2 /HPF (0-2); UACC Culture Trigger YES; WBC Urine >50 /HPF (0-5)
== END 2023-10-10 08:38 | disposition home or self-care (01) ==
LOC: HO.HSH3E 08:37
PROVIDERS: Visit Provider Internal Medicine Medical Oncology
DX: R82.90 Unspecified abnormal findings in urine (principal)
CPT/HCPCS: 81001; 87086

== ENCOUNTER 2023-10-16 08:03 | Outpatient (REF) | payer MEDICARE, SELFPAY ==
--- NOTE | ~2023-10-16 | XR_ITS ---
EXAMINATION: XR PELVIS, 1 VIEW XR ABDOMEN, 2 VIEWS XR CHEST, 2 VIEWS XR SKULL, 2 VIEWS CLINICAL INFORMATION: Pre-MRI poor historian COMPARISON: None available. TECHNIQUE: Single view the pelvis, 2 views of the abdomen, 2 views of the chest, 2 views of the skull FINDINGS: PELVIS: Left hip arthroplasty, grossly intact. Osteopenia. No acute visible fracture or dislocation. Left femoral acetabular heterotopic ossification. Joint space alignment otherwise maintained. Soft tissues are unremarkable. Atherosclerotic calcifications are noted. ABDOMEN: No dilated loops of bowel visualized. Fecal loading of the ascending colon. Atherosclerotic calcifications visualized. No radiopaque foreign bodies identified. CHEST: Bilateral low lung volumes. Bibasilar atelectasis. Accentuation of pulmonary vasculature. No pneumothorax. Trachea is midline. Sternotomy wires and valvular replacement. Cardiac mediastinal silhouette is not enlarged. No large pleural effusion. Osseous structures are intact. Soft tissues are unremarkable. SKULL: Dental hardware noted. No acute visible fracture or dislocation. Visualized sinuses are unremarkable. Soft tissues are unremarkable. XR/XR pre mri screening IMPRESSION: 1. No radiopaque foreign bodies visualized with the exception of left hip arthroplasty hardware, sternotomy wires, cardiac valvular replacement, and dental hardware. 2. Bibasilar atelectasis of the lung martinez, left greater than right. 3. Nonobstructive bowel gas pattern.
== END 2023-10-16 08:04 | disposition home or self-care (01) ==
LOC: HO.MRI 08:03
PROVIDERS: PCP Internal Medicine Medical Oncology; Visit Provider Internal Medicine Medical Oncology
DX: Z13.89 Encounter for screening for other disorder (principal)

== ENCOUNTER 2023-11-03 10:02 | Outpatient (REF) | payer MEDICARE, SELFPAY ==
--- NOTE | ~2023-11-03 | MR_ITS ---
EXAMINATION: MR PELVIS WITHOUT CONTRAST CLINICAL INFORMATION: Back pain. Prostate cancer. Evaluate for metastases. COMPARISON: Pelvic radiographs dated 10/16/2023. TECHNIQUE: Multisequence MR imaging of the pelvis was obtained without contrast on a high-field strength scanner. Patient declined contrast administration. FINDINGS: Evaluation limited secondary to patient motion. BONE: Artifact related to left hip arthroplasty. No marrow edema or evidence of acute osseous injury. No stress reaction, fracture, or avascular necrosis. No concerning lytic or blastic osseous lesion. No evidence of osseous metastases Prominent multilevel degenerative disc disease with facet arthropathy partially visualized within the lower lumbar spine. No lower lumbar spine vertebral body fracture. MUSCLES/TENDONS: Diffuse muscle atrophy. Mild edema within the bilateral iliacus muscles, right greater than left which could represent mild strains. No large transverse tendon tear or tendon retraction. INTRAPELVIC STRUCTURES: No large pelvic mass or fluid collection. Evaluation of the prostate and prostate bed is limited. Unremarkable urinary bladder. SOFT TISSUES: No soft tissue mass or fluid collection. MR/MR pelvis wo con IMPRESSION: Evaluation limited secondary to patient motion. 1. No acute osseous abnormality. No stress reaction, fracture, or avascular necrosis. No evidence of osseous metastases. 2. Mild edema within the bilateral iliacus muscles, right greater than left which could represent mild strains. No large transverse tendon tear or tendon retraction.
== END 2023-11-03 10:03 | disposition home or self-care (01) ==
LOC: HO.MRI 10:02
PROVIDERS: PCP Internal Medicine Medical Oncology; Visit Provider Internal Medicine Medical Oncology
DX: M54.50 Low back pain, unspecified (principal)
CPT/HCPCS: 72195

== ENCOUNTER 2023-11-04 01:04 | Emergency (ER) | payer OTHER, SELFPAY ==
--- NOTE | 2023-11-04 01:18 | ED.GENADULT ---
HPI - General Adult General Chief complaint: General Medical Stated complaint: low blood sugar Time Seen by Provider: 11/04/23 01:17 Source: patient, EMS and RN notes reviewed Mode of arrival: EMS Limitations: no limitations History of Present Illness HPI narrative: Patient diabetic on insulin from [facility] comes here as blood sugar was low 31 was given orange juice repeat blood sugar was 39 was diaphoretic EMS gave him IM glucagon on arrival blood sugar was in 100 on arrival was 132 patient says he did not eat or late yesterday because food was not good. No fever no chills no open wound patient received 70 units of Lantus in a.m. and 6 units Humalog before meals not on any oral hypoglycemic Related Data Home Medications Medication Instructions Recorded Confirmed doxazosin 2 mg tablet 2 mg PO DAILY 05/31/23 05/31/23 atorvastatin 10 mg tablet 10 mg PO BEDTIME 06/01/23 06/01/23 folic acid 1 mg tablet 1 mg PO DAILY 06/01/23 06/01/23 insulin glargine 100 unit/mL 39 unit subcut QDAY 06/01/23 06/01/23 subcutaneous solution insulin lispro 100 unit/mL 6 unit subcut .at noon 06/01/23 06/01/23 subcutaneous pen labetalol 100 mg tablet 50 mg PO BID 06/01/23 06/01/23 losartan 50 mg tablet 50 mg PO DAILY 06/01/23 06/01/23 polyethylene glycol 3350 17 gram 17 g PO DAILY 06/01/23 06/01/23 oral powder packet tamsulosin 0.4 mg capsule 0.8 mg PO BEDTIME 06/01/23 06/01/23 omeprazole 20 mg capsule,delayed 20 mg PO DAILY 06/02/23 release Previous Rx's Medication Instructions Recorded finasteride 5 mg tablet 5 mg PO DAILY 90 days #90 tabs 07/11/23 Allergies Allergy/AdvReac Type Severity Reaction Status Date / Time No Known Allergies Allergy Verified 06/26/23 09:55 Review of Systems Review of Systems: Yes all other systems are reviewed and are negative PMFSH Past Medical History Medical History Chronic atrial fibrillation, unspecified Unspecified dementia, unspecified severity, without behavioral disturbance, psychotic disturbance, mood disturbance, and anxiety Gastro-esophageal reflux disease without esophagitis Major depressive disorder, recurrent, mild Unspecified osteoarthritis, unspecified site Type 2 diabetes mellitus without complications Personal history of COVID-19 Type 2 diabetes mellitus with other circulatory complications Chronic kidney disease, stage 3 unspecified Essential (primary) hypertension Retention of urine, unspecified Hyperlipidemia, unspecified Benign prostatic hyperplasia without lower urinary tract symptoms Atherosclerotic heart disease of [place] coronary artery without angina pectoris 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 Oriented X3. No acute distress. Eyes: PERRLA, No Nystagmus ENT: Pharynx normal. Oral Mucosa moist Neck: Normal inspection. Neck supple. CVS: Normal heart rate and rhythm. Pulses normal. Respiratory: No respiratory distress. Equal air entry bilateral, no wheezing/rales/rhonchi Abdomen: Soft and nontender. Bowel sounds are present, no mass palpable, no CVA tenderness Skin: Skin warm and dry. Normal skin color. Normal skin turgor. Extremities: No lower extremity edema. Left BKA Neuro: Oriented X 3. No motor deficit. No sensory deficit.No cerebellar signs , cranial nerves II-XII intact Medical Decision Making Medical Decision Making [facility] Narrative: Patient with stable labs with CKD POC improved during stay in the ED after patient had p.o. fluid and food will check UA etiology of hypoglycemia is likely from poor oral intake advised to decrease insulin dose if patient not eating well patient refused to give urine sample as says that he gets blood in the urine whenever they put a catheter Differential Diagnosis Differential Diagnoses: The differential diagnosis associated with the presentation includes Lab Data [facility] Lab Attestation statement: I reviewed the patient's lab results. 11/04/23 03:03 11/04/23 03:03 Labs: Lab Results 02/07/1811/04/23 11/04/23 Range/Units 01:22 03:03 04:19 WBC 12.6 H (4.8-10.8) X10*3/uL RBC 3.37 L (4.60-5.80) X10*6/uL Hgb 10.4 L (14.0-18.0) g/dl Hct 31.5 L (42.0-52.0) % MCV 93.5 (80.0-98.0) fL MCH 30.9 (27.0-33.0) pg MCHC 33.0 (31.0-36.0) g/dl RDW 13.0 (11.0-16.0) % Plt Count 133 L (160-400) X10*3/uL MPV 10.4 (9.4-12.4) fL Immature Gran % (Auto) 0.7 H (0.0-0.4) % Neut % (Auto) 84.0 H (45-73) % Lymph % (Auto) 8.8 L (20-40) % [place] % (Auto) 5.7 (2-11) % Eos % (Auto) 0.6 (0-4) % Baso % (Auto) 0.2 (0-2) % Lymph # (Auto) 1.1 L (1.2-4.9) X10*3/uL [place] # (Auto) 0.7 (0.1-1.2) X10*3/uL Eos # (Auto) 0.1 (0.0-0.4) X10*3/uL Baso # (Auto) 0.0 (0.0-0.2) X10*3/uL Abs Immat Gran (auto) 0.09 H (0.00-0.03) X10*3/uL Absolute Neuts (auto) 10.5 H (2.0-8.3) x10*3/uL Absolute Nucleated RBC 0.000 (0.0-0.012) X10*3/uL Nucleated RBC % (auto) 0.0 (0.0-0.2) /100WBC Sodium 140 (135-145) mmol/L Potassium 5.1 (3.3-5.1) mmol/L Chloride 111 H (96-108) mmol/L Carbon Dioxide 20 L (22-29) mmol/L Anion Gap 14 (12-20) BUN 45 H (9-16) mg/dL Creatinine 1.62 H (0.5-1.4) mg/dL Estim Creat Clear Calc TNP Estimated GFR 41 POC Glucose 132 H 166 H (60-115) mg/dL Random Glucose 161 H (60-115) mg/dL Calcium 9.6 (8.4-10.2) mg/dL Total Bilirubin 0.4 (0.0-1.0) mg/dL AST 27 (5-37) U/L ALT 35 (0-40) U/L Alkaline Phosphatase 139 H (39-117) U/L Total Protein 6.6 (6.5-8.0) g/dL Albumin 3.5 (3.5-5.0) g/dL Discharge Plan Discharge Clinical Impression: Hypoglycemia associated with type 2 diabetes mellitus Patient Disposition: Xfer LT Instructions: Hypoglycemia in a Person with Diabetes (ED) Additional Instructions: Decrease the dose of Lantus insulin to 45 units a day as patient not been eating well Continue Humalog before meals if patient eats Follow with PCP Prescriptions: No Action doxazosin 2 mg tablet 2 mg PO DAILY atorvastatin 10 mg tablet 10 mg PO BEDTIME folic acid 1 mg tablet 1 mg PO DAILY labetalol 100 mg tablet 50 mg PO BID losartan 50 mg tablet 50 mg PO DAILY polyethylene glycol 3350 17 gram powder in packet 17 g PO DAILY tamsulosin 0.4 mg capsule 0.8 mg PO BEDTIME insulin glargine 100 unit/mL solution 39 unit subcut QDAY insulin lispro 100 unit/mL insulin pen 6 unit subcut .at noon Rx Instructions: give if fingerstick is above 160 omeprazole 20 mg capsule,delayed release(DR/EC) 20 mg PO DAILY finasteride 5 mg tablet 5 mg PO DAILY 90 Days Qty: 90 1RF
[2023-11-04 01:19] VITALS: BP 160/55; PULSE 55; O2SAT 96
[2023-11-04 01:26] LABS: Glucose, Whole Blood 132 mg/dL (60-115)
[2023-11-04 01:32] VITALS: BP 130/39; PULSE 56; RESP 17; TEMP 36.6; O2SAT 97
[2023-11-04 03:07] LABS: MANUAL DIFF FLAG NO
[2023-11-04 03:08] LABS: Basophils Percent Auto 0.2 % (0-2); Eosinophils Absolute Auto 0.1 X10*3/uL (0.0-0.4); Eosinophils Percent Auto 0.6 % (0-4); Hematocrit 31.5 % (42.0-52.0); Hemoglobin 10.4 g/dl (14.0-18.0); Imm Gran Abs Auto 0.09 X10*3/uL (0.00-0.03); Imm Gran Pct Auto 0.7 % (0.0-0.4); Lymphocytes Absolute Auto 1.1 X10*3/uL (1.2-4.9); Lymphocytes Percent Auto 8.8 % (20-40); Mean Corpuscular Hemoglobin 30.9 pg (27.0-33.0); Mean Corpuscular Volume 93.5 fL (80.0-98.0); Mean Platelet Volume 10.4 fL (9.4-12.4); Monocytes Absolute Auto 0.7 X10*3/uL (0.1-1.2); Monocytes Percent Auto 5.7 % (2-11); Neutrophils Absolute Auto 10.5 x10*3/uL (2.0-8.3); Platelet Count 133 X10*3/uL (160-400); Red Blood Count 3.37 X10*6/uL (4.60-5.80); White Blood Count 12.6 X10*3/uL (4.8-10.8)
[2023-11-04 03:23] LABS: Alanine Aminotransferase 35 U/L (0-40); Albumin Level 3.5 g/dL (3.5-5.0); Alkaline Phosphatase 139 U/L (39-117); Anion Gap 14 (12-20); Aspartate Amino Transferase 27 U/L (5-37); Bilirubin Total 0.4 mg/dL (0.0-1.0); Blood Urea Nitrogen 45 mg/dL (9-16); Calcium 9.6 mg/dL (8.4-10.2); Carbon Dioxide 20 mmol/L (22-29); Chloride 111 mmol/L (96-108); Estimated Glomerular Filt Rate 41; Glucose Random 161 mg/dL (60-115); Potassium 5.1 mmol/L (3.3-5.1); Sodium 140 mmol/L (135-145); Total Protein 6.6 g/dL (6.5-8.0)
[2023-11-04 04:23] LABS: Glucose, Whole Blood 166 mg/dL (60-115)
[2023-11-04 06:35] VITALS: BP 147/56; PULSE 65; RESP 17; TEMP 36.4; O2SAT 95
== END 2023-11-04 06:58 ==
PROVIDERS: Emergency Provider Internal Medicine
DX: E11.22 Type 2 diabetes mellitus with diabetic chronic kidney disease (principal); E11.649 Type 2 diabetes mellitus with hypoglycemia without coma; I12.9 Hypertensive chronic kidney disease with stage 1 through stage 4 chronic kidney disease, or unspecified chronic kidney disease; N18.30 Chronic kidney disease, stage 3 unspecified; E78.5 Hyperlipidemia, unspecified; Z79.02 Long term (current) use of antithrombotics/antiplatelets; Z79.4 Long term (current) use of insulin; Z79.899 Other long term (current) drug therapy
CPT/HCPCS: 36415; 80053; 82947; 85025; 99283; 99284

== ENCOUNTER 2023-11-06 05:15 | Outpatient (REF) | payer MEDICARE, SELFPAY ==
[2023-11-06 07:22] LABS: Estimated Average Glucose 177 mg/dL; Hemoglobin A1c % 7.8 % (<6.0)
[2023-11-06 07:28] LABS: Alanine Aminotransferase 31 U/L (0-40); Albumin Level 3.3 g/dL (3.5-5.0); Alkaline Phosphatase 121 U/L (39-117); Anion Gap 12 (12-20); Aspartate Amino Transferase 24 U/L (5-37); Bilirubin Total 0.4 mg/dL (0.0-1.0); Blood Urea Nitrogen 52 mg/dL (9-16); Calcium 9.2 mg/dL (8.4-10.2); Carbon Dioxide 22 mmol/L (22-29); Chloride 110 mmol/L (96-108); Estimated Glomerular Filt Rate 34; Glucose Fasting 177 mg/dL (60-99); Sodium 138 mmol/L (135-145); Total Protein 6.3 g/dL (6.5-8.0)
[2023-11-06 10:43] LABS: Anion Gap 13 (12-20); Carbon Dioxide 20 mmol/L (22-29); Chloride 109 mmol/L (96-108); Potassium 5.7 mmol/L (3.3-5.1); Sodium 136 mmol/L (135-145)
== END 2023-11-06 05:16 | disposition home or self-care (01) ==
LOC: HO.HSH3E 05:15
PROVIDERS: Internal Medicine Medical Oncology; Visit Provider Internal Medicine
DX: E11.22 Type 2 diabetes mellitus with diabetic chronic kidney disease (principal); I25.10 Atherosclerotic heart disease of native coronary artery without angina pectoris; N18.9 Chronic kidney disease, unspecified
CPT/HCPCS: 36415; 80051; 80053; 83036

== ENCOUNTER 2023-11-07 05:45 | Outpatient (REF) | payer MEDICARE, SELFPAY ==
[2023-11-07 07:46] LABS: Anion Gap 13 (12-20); Blood Urea Nitrogen 43 mg/dL (9-16); Carbon Dioxide 24 mmol/L (22-29); Chloride 111 mmol/L (96-108); Estimated Glomerular Filt Rate 45; Potassium 5.5 mmol/L (3.3-5.1); Sodium 142 mmol/L (135-145)
== END 2023-11-07 05:46 | disposition home or self-care (01) ==
LOC: HO.HSH3E 05:45
PROVIDERS: Visit Provider Internal Medicine Medical Oncology
DX: E87.5 Hyperkalemia (principal)
CPT/HCPCS: 36415; 80051; 82565; 84520

== ENCOUNTER 2024-01-03 11:32 | Outpatient (AMB) | payer MEDICARE, SELFPAY ==
--- NOTE | 2024-01-03 12:48 | HO.VETSHOME ---
Intake Intake Visit Reasons: 6M f/u Intake Note: [facility] Patient Present for follow up Urology Med: Doxazosin, Tamsulosin , Finasteride Antibiotic Allergy: None Blood Thinner: None Allergies No Known Allergies Allergy (Verified 06/26/23 09:55) HPI HPI Comments History of Present Illness Details Yong is a pleasant male. He is a resident of [facility]. He seen for the following urologic conditions - lower urinary tract symptoms with incomplete bladder emptying - elevated PSA Repeat PSA 06/17 2.7, 01/16 5.3 PVR less than 20 cc on 2 different occasions Finasteride was not added Has been on combination doxazosin and tamsulosin Recommend stopping tamsulosin at night and increasing doxazosin to 4 mg p.o. q.h.s. Also should start finasteride Six-month follow-up PVR Lower urinary tract symptoms Previously seen by Urology in [place] Prior urinary retention in PVR ranging from 250-600 cc Prior history of indwelling Ni catheter 2020 for urinary retention Current medications include doxazosin 2 mg and tamsulosin 0.8 mg PSA 01/15 5.2 Imaging - 06/17 bladder ultrasound incomplete bladder emptying [facility] Medical History Chronic atrial fibrillation, unspecified Unspecified dementia, unspecified severity, without behavioral disturbance, psychotic disturbance, mood disturbance, and anxiety Gastro-esophageal reflux disease without esophagitis Major depressive disorder, recurrent, mild Unspecified osteoarthritis, unspecified site Type 2 diabetes mellitus without complications Personal history of COVID-19 Type 2 diabetes mellitus with other circulatory complications Chronic kidney disease, stage 3 unspecified Essential (primary) hypertension Retention of urine, unspecified Hyperlipidemia, unspecified Benign prostatic hyperplasia without lower urinary tract symptoms Atherosclerotic heart disease of [place] coronary artery without angina pectoris 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 Acquired absence of left leg below knee Peripheral vascular disease, unspecified Surgical History Presence of aortocoronary bypass graft Social History Alcohol intake: never Patient Tobacco Use Status: Never used Tobacco Review of Systems Const Reports as per HPI and Reports no additional complaints Card Reports as per HPI and Reports no additional complaints Resp Reports as per HPI and Reports no additional complaints GI Reports as per HPI and Reports no additional complaints Reports as per HPI Musc Reports no additional complaints and Reports as per HPI Neuro Reports no additional complaints and Reports as per HPI Physical Exam Const General: cooperative, healthy appearing, comfortable and no acute distress Orientation/consciousness: patient oriented x3 HEENT Face and sinus: Yes normal facial exam Mouth: moist mucous membranes Neck Neck: Yes normal visual inspection, Yes full ROM and Yes trachea midline Chest Chest palpation & inspection: normal inspection of the chest Resp Effort & Inspection: normal respiratory effort, able to speak in complete sentences and no respiratory distress GI Inspection: Yes normal to inspection Back/Spine/Pelvis Cervical Spine: normal cervical lordosis Thoracic/Lumbar Spine: thoracic and lumbar spine normal to inspection Skin General skin exam: no rashes or lesions noted Neuro General: patient oriented x3, tone normal and moves all extremities Extrem General: Yes normal to inspection and Yes capillary refill normal Assessment & Plan Assessment & Plan (1) Elevated PSA: Code(s): R97.20 - Elevated prostate specific antigen [PSA] (2) Incomplete bladder emptying: Code(s): R33.9 - Retention of urine, unspecified Plan Six-month follow-up PVR Patient Instructions: Imaging studies, laboratory and physical exam results were discussed and reviewed in detail. No major barriers to patient understanding were identified. An opportunity to ask questions regarding the treatment plan was provided. All questions were answered. The patient expressed understanding and agreement with the above treatment plan. The patient is aware they should contact our office by phone for worsening of their current condition or the appearance of new urologic symptoms. Compliance is encouraged with any medications and followup testing that is ordered. It is a privilege to participate in the urologic care of your patient. If you have any questions or concerns regarding treatment for the above conditions, or other urologic issues, please do not hesitate to contact me. The office telephone contact is [phone]. This note is constructed using voice recognition software. While every effort has been made to ensure accuracy jewel supervisor errors may have been included. Yours sincerely, Dr Maurice Lanza MD, [facility] - Urology Providers of Expert, Compassionate Care for the Genitourinary System Coding Level of Care Code 28243-Bltk Fac sub, mod Diagnoses Elevated PSA R97.20 Incomplete bladder emptying R33.9
== END 2024-01-03 15:33 ==
LOC: HO.HUSV 11:32
PROVIDERS: Visit Provider Urology
DX: R97.20 Elevated prostate specific antigen [PSA] (principal); R33.9 Retention of urine, unspecified
CPT/HCPCS: 99309

== ENCOUNTER 2024-01-28 01:47 | Inpatient (IN) | payer MEDICARE, SELFPAY ==
[2024-01-28] VITALS (37 sets, daily range): BP systolic 123–178; BP diastolic 37–84; PULSE 49–105; RESP 14–22; TEMP 35.7–37.1; O2SAT 94–98; BMI 30.4; BMI 29.7
--- NOTE | ~2024-01-28 | CT_ITS ---
EXAMINATION: CTA NECK WITH CONTRAST (STROKE) CTA BRAIN WITH CONTRAST (STROKE) CLINICAL INFORMATION: CVA COMPARISON: Noncontrast head CT from the same day TECHNIQUE: Test bolus sequences followed by intravenous administration 75 mL of Omnipaque 350. Helical imaging was performed in the axial plane from the thoracic inlet to the skull vertex. Delayed postcontrast imaging of the head was also performed. The data was processed at the diagnostic radiologic technologist's workstation for generation of MIP sequences. Angled MIPs and volume rendered reformatted images were also generated at an offline 3D workstation. Stenoses are assessed in accordance with NASCET criteria unless otherwise indicated. DOSE LOWERING TECHNIQUES: This CT examination was performed using dose optimization techniques as appropriate, variously including the following: - Automated exposure control - Adjustment of mA and/or kV according to patient size (this includes techniques or standardized protocols for targeted exams were dose is matched to indication/reason for exam; i.e. extremities or head) - Use of iterative reconstruction technique DLP: 1512 mGy-cm FINDINGS: Neck CTA: There is a classic 3 vessel branching pattern of the aortic arch. Atherosclerotic plaque and calcification along the aortic arch and at the origin of the great vessels without significant stenosis. Both vertebral arteries are patent throughout their extracranial cervical course. There are calcifications at the bilateral common carotid artery bifurcations and proximal internal carotid arteries, resulting in approximately 50% luminal narrowing on the right and 70% luminal narrowing on the left. Remainder of the internal carotid arteries are patent. Brain CTA: Normal appearance of the intradural vertebral arteries, and the left vertebral artery is dominant. Normal appearance of the basilar artery. Normally opacified posterior communicating arteries. Normal appearance of the posterior cerebral arteries bilaterally. Normal appearance of the intradural internal carotid arteries without focal stenosis. Normal appearance of the anterior cerebral and middle cerebral arteries without focal occlusion or stenosis. Normal anterior communicating artery. Normal arborization of the middle cerebral arteries. CT Head: There is asymmetric hypoattenuation in the region of the left cerebellar peduncle and adjacent superior cerebellum, age-indeterminate though for which acute infarct is a possibility No intracranial mass, hemorrhage, extra-axial collection, or midline shift. The mercedes-white matter differentiation is otherwise preserved. Prominent ventricles again noted. There is mild to moderate volume loss. Small fluid level in the left maxillary sinus. CT Neck: The thyroid gland and remaining cervical soft tissues are normal in appearance. Degenerative changes of the cervical spine with disc space narrowing, endplate osteophyte formation, and facet arthropathy. Upper Chest: No abnormalities in the visualized lung apices or upper mediastinum. CT/CT angio head neck stroke IMPRESSION: 1. Asymmetric hypoattenuation in the region of the left cerebellar peduncle and adjacent superior cerebellum, age-indeterminate, though for which acute infarct is a possibility. Recommend further evaluation with MRI. 2. No large vessel occlusion or significant stenosis in the intracranial circulation. 3. Calcifications at the bilateral common carotid artery bifurcations and proximal internal carotid arteries, resulting in approximately 50% luminal narrowing on the right and 70% luminal narrowing on the left. This critical result was discussed with Dr. Sue on 01/28/2024 3:37 AM, and it was ascertained that the content and urgency of the report was understood at the time of direct communication.
--- NOTE | ~2024-01-28 | MR_ITS ---
EXAMINATION: MR BRAIN WITHOUT CONTRAST CLINICAL INFORMATION: Evaluate for infarction COMPARISON: CT head and CT angiogram of head and neck 01/28/2024 TECHNIQUE: MRI of the brain was obtained using routine sequences without contrast. FINDINGS: There is restricted diffusion along the superior medial left cerebellar hemisphere corresponding to hypodensity on the prior CT examination. Associated focal susceptibility artifact within this region is noted. There are multiple chronic areas of infarction the bilateral cerebellar hemispheres and a chronic lacunar infarction the left thalamus. Punctate chronic microhemorrhage in the left posterior frontal vertex. There is a CSF density lesion along the left parietal vertex compatible with an arachnoid cyst. Generalized cerebral volume loss with ventriculomegaly that is out of proportion to sulcal prominence, narrowed callosal angle, and sulcal crowding at the cerebral vertex. Periventricular and subcortical T2/FLAIR hyperintense foci are nonspecific but likely represent moderate chronic microvascular ischemic change. Cranial flow voids are preserved. Rounded T2 hyperintense lesion in the left parotid gland is partially visualized, measuring up to 1.4 cm. Mild to moderate polypoid mucosal thickening in the left maxillary sinus with additional scattered paranasal sinus mucosal thickening. The mastoid air cells are well-aerated. No focal expansile or destructive osseous lesion. MR/MR head/brain wo con IMPRESSION: Acute infarction along the superior medial left cerebellar hemisphere corresponding to hypodensity on the prior CT examination. Associated susceptibility artifact likely represents focal hemorrhagic conversion. Chronic areas of infarction are noted in the left thalamus and bilateral cerebellar hemispheres. Ventriculomegaly with findings suggestive of normal pressure hydrocephalus. Clinical correlation is recommended. 1.4 cm lesion in the left parotid gland is only partially visualized but may represent a primary parotid neoplasm. ENT evaluation is recommended.
--- NOTE | ~2024-01-28 | CT_ITS ---
EXAMINATION: CT HEAD WITHOUT CONTRAST (STROKE PROTOCOL) CLINICAL INFORMATION: Stroke protocol. Reason for Exam l hemiparesisi /cva COMPARISON: None available. TECHNIQUE: Contiguous axial imaging was performed from the skull base to vertex without intravenous administration of contrast. This CT examination was performed using dose optimization techniques as appropriate, variously including the following: *Automated exposure control *Adjustment of mA and/or kV according to patient size (this includes techniques or standardized protocols for targeted exams where dose is matched to indication/reason for exam; i.e. extremities or head) *Use of iterative reconstruction technique DLP: 719 mGy-cm FINDINGS: There is no evidence of acute intracranial hemorrhage or territorial infarction. No abnormal mass-effect or midline shift is seen. Mane to white matter differentiation is well preserved. No extra-axial fluid collections are identified. The ventricles appear prominent, raising the possibility of normal pressure hydrocephalus. There is mild periventricular white matter hypoattenuation consistent with chronic small vessel ischemic disease. Mild to moderate volume loss. The osseous structures and soft tissues are normal. Small fluid level in the left maxillary sinus. The mastoid air cells are well-aerated. CT/CT head for stroke IMPRESSION: 1. No acute intracranial pathology. 2. Prominent ventricles, raising the possibility of normal pressure hydrocephalus. 3. Chronic small vessel ischemic disease and volume loss. This stroke protocol result was discussed with Dr. Sue on 01/28/2024 2:10 AM.
--- NOTE | ~2024-01-28 | CT_ITS ---
EXAMINATION: CT HEAD WITHOUT CONTRAST CLINICAL INFORMATION: Evaluate for hemorrhagic conversion of acute stroke. COMPARISON: Brain MRI dated 01/29/2024. TECHNIQUE: Contiguous axial imaging was performed from the skull base to vertex without intravenous administration of contrast. This CT examination was performed using dose optimization techniques as appropriate, variously including the following: *Automated exposure control *Adjustment of mA and/or kV according to patient size (this includes techniques or standardized protocols for targeted exams where dose is matched to indication/reason for exam; i.e. extremities or head) *Use of iterative reconstruction technique DLP: 857 mGy-cm FINDINGS: An acute infarct is again visible in the left middle cerebellar peduncle and anterosuperior left cerebellar hemisphere with mild regional mass effect. Mild petechial hemorrhage seen within the area of infarction without gross hemorrhagic transformation. No abnormal midline shift is seen. There is effacement of the medial parafalcine frontoparietal sulci superior to the lateral ventricles. There is superior bowing of the corpus callosum. The callosal angle measures 34 degrees with disproportionate dilatation of the ventricles relative to the sulcal spaces. The sylvian fissures are patulous. Mcconnell index is increased and measures 0.44. There is a 1.6 x 5 cm arachnoid cyst at the left parietal vertex resulting in chronic remodeling of the inner cortical table of the overlying left parietal calvarium. Lnxr-[id number] chronic white matter microangiopathic changes noted. The osseous structures are otherwise normal. Nonspecific high left parietal scalp soft tissue thickening visible. The mastoid air cells are well aerated. There is a high attenuation dependent fluid level in the left maxillary antrum with mild ethmoid sinus mucosal thickening. CT/CT head/brain wo IV con IMPRESSION: Mild amount of petechial hemorrhage at the site of the acute infarct in the left middle cerebellar peduncle and anterosuperior left cerebellar hemisphere. Otherwise, no gross hemorrhagic transformation of the infarct. 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 High left parietal vertex arachnoid cyst. Rdrq-nq-ztuzxvbx chronic white matter microangiopathy and diffuse brain parenchymal volume loss. Focal high left parietal scalp soft tissue thickening; correlate with physical exam findings. Nonspecific high attenuation dependent fluid level in the left maxillary antrum, as on the prior MRI. Findings may be due to proteinaceous fluid. If the patient has had any recent facial trauma, blood products cannot be ruled out; clinically correlate.
--- NOTE | 2024-01-28 01:51 | ECG_ITS ---
Test Reason : STROKE Blood Pressure : / mmHG Vent. Rate : 064 BPM Atrial Rate : 064 BPM P-R Int : 346 ms QRS Dur : 092 ms QT Int : 430 ms P-R-T Axes : 070 -05 033 degrees QTc Int : 443 ms Sinus rhythm with 1st degree A-V block Low voltage QRS Incomplete right bundle branch block Cannot rule out Anterior infarct , age undetermined Abnormal ECG No previous ECGs available Referred By: Kishan Valentino Electronically Signed By:AKILA MEANS
--- NOTE | 2024-01-28 01:56 | PC.NURSE ---
#20 PIV initiated to right forearm, blood collected and sent to lab. Pt to CT with this RN on full monitoring tech.
--- NOTE | 2024-01-28 02:02 | ED_ITS ---
HPI - Neuro Symptoms/Deficit General Chief Complaint: Stroke Stated Complaint: ?Stroke Time Seen by Provider: 01/28/24 01:51 Source: EMS and RN notes reviewed Mode of arrival: EMS Limitations: altered mental status History of Present Illness HPI Narrative: Patient diabetic with history of hypertension and chronic paroxysmal AFib apparently vomited at 18 30 last night COVID test was done which was negative POC was 91 was given Zofran at that time at 00:40 patient noticed to have slurred speech with facial droop slow to respond EMS noted left-sided weakness patient slow to respond on arrival which is unusual per nursing staff POC 127 Related Data Home Medications ?Medication ?Instructions ?Recorded ?Confirmed doxazosin 2 mg tablet 2 mg PO DAILY 05/31/23 05/31/23 atorvastatin 10 mg tablet 10 mg PO BEDTIME 06/01/23 06/01/23 folic acid 1 mg tablet 1 mg PO DAILY 06/01/23 06/01/23 insulin glargine 100 unit/mL 39 unit subcut QDAY 06/01/23 06/01/23 subcutaneous solution insulin lispro 100 unit/mL 6 unit subcut .at noon 06/01/23 06/01/23 subcutaneous pen labetalol 100 mg tablet 50 mg PO BID 06/01/23 06/01/23 losartan 50 mg tablet 50 mg PO DAILY 06/01/23 06/01/23 polyethylene glycol 3350 17 gram 17 g PO DAILY 06/01/23 06/01/23 oral powder packet tamsulosin 0.4 mg capsule 0.8 mg PO BEDTIME 06/01/23 06/01/23 omeprazole 20 mg capsule,delayed 20 mg PO DAILY 06/02/23 release Previous Rx's ?Medication ?Instructions ?Recorded finasteride 5 mg tablet 5 mg PO DAILY 90 days #90 tabs 07/11/23 Allergies Allergy/AdvReac Type Severity Reaction Status Date / Time No Known Allergies Allergy Verified 01/28/24 02:00 Review of Systems 2 Review of Systems: Yes Unobtainable due to mental condition PMFSH Past Medical History Medical History Chronic atrial fibrillation, unspecified Unspecified dementia, unspecified severity, without behavioral disturbance, psychotic disturbance, mood disturbance, and anxiety Gastro-esophageal reflux disease without esophagitis Major depressive disorder, recurrent, mild Unspecified osteoarthritis, unspecified site Type 2 diabetes mellitus without complications Personal history of COVID-19 Type 2 diabetes mellitus with other circulatory complications Chronic kidney disease, stage 3 unspecified Essential (primary) hypertension Retention of urine, unspecified Hyperlipidemia, unspecified Benign prostatic hyperplasia without lower urinary tract symptoms Atherosclerotic heart disease of [place] coronary artery without angina pectoris 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 Acquired absence of left leg below knee Peripheral vascular disease, unspecified Surgical History Presence of aortocoronary bypass graft Social History Social History Alcohol intake: never Patient Tobacco Use Status: Never used Tobacco Advance Directives: No Advance Directives Information Provided: No Do you have a plan to hurt others: No Plan Physical Exam 2 Vital Signs: Vital Signs: Last Vital Signs Temp 97.6 F 01/28/24 04:49 Pulse 66 01/28/24 04:49 Resp 17 01/28/24 04:49 BP 153/48 H 01/28/24 04:49 Pulse Ox 97 01/28/24 04:49 O2 Del Method Room Air 01/28/24 04:49 BMI result Body Mass Index 30.4 Appearance: Alert. Oriented X3. No acute distress. Eyes: PERRLA, No Nystagmus ENT: Pharynx normal. Oral Mucosa moist Neck: Normal inspection. Neck supple. CVS: Normal heart rate and rhythm. Pulses normal. Respiratory: No respiratory distress. Equal air entry bilateral, no wheezing/rales/rhonchi Abdomen: Soft and nontender. Bowel sounds are present, no mass palpable, no CVA tenderness Skin: Skin warm and dry. Normal skin color. Normal skin turgor. Extremities: No lower extremity edema. No calf tenderness right BKA Neuro: Oriented X 3. Left hemiparesis with facial droop and expressive aphasia strength 2/5 on the left side Medications Administered Discontinued Medications Generic Name Dose Route Start Last Admin Trade Name Freq PRN Reason Stop Dose Admin Iohexol 85 ml 01/28/24 02:20 01/28/24 02:21 Iohexol 350 Mg/Ml 100 Ml Infus..Btl IV 01/28/24 02:21 85 ml ONCE ONE Administration Ondansetron HCl 4 mg 01/28/24 03:06 01/28/24 03:08 Ondansetron Hcl 4 Mg/2 Ml Vial IVPUSH 01/28/24 03:07 4 mg ONCE ONE Administration Tenecteplase 23 mg 01/28/24 02:09 01/28/24 02:24 Tenecteplase 50 Mg/10 Ml Kit IVPUSH 01/28/24 02:10 23 mg ONCE ONE Administration Medical Decision Making Medical Decision Making [facility] Narrative: Patient with acute left-sided weakness which was noticed by the staff at 00:40 at half-way NIHSS score of 6 no large vessel occlusion CTA showed left cerebellar hypoattenuation possible acute infarct no previous CT scan available. Case discussed Dr. Romano neurologist TNK was advised which was given to the patient at 02:24 on re-examination patient more alert able to speak few sentences but still has left hemiparesis will admit to ICU case discussed with Dr. Shanks Differential Diagnosis Differential Diagnoses: The differential diagnosis associated with the presentation includes Ischemic stroke/cerebellar stroke/hemorrhagic stroke Lab Data [facility] Lab Attestation statement: I reviewed the patient's lab results. 01/28/24 01:56 01/28/24 02:43 Labs: Lab Results 01/28/24 01/28/24 Range/Units 01:56 02:43 WBC 8.3 (4.8-10.8) X10*3/uL RBC 3.65 L (4.60-5.80) X10*6/uL Hgb 11.5 L (14.0-18.0) g/dl Hct 33.6 L (42.0-52.0) % MCV 92.1 (80.0-98.0) fL MCH 31.5 (27.0-33.0) pg MCHC 34.2 (31.0-36.0) g/dl RDW 13.1 (11.0-16.0) % Plt Count 143 L (160-400) X10*3/uL MPV 10.6 (9.4-12.4) fL Immature Gran % (Auto) 0.6 H (0.0-0.4) % Neut % (Auto) 86.6 H (45-73) % Lymph % (Auto) 9.3 L (20-40) % [place] % (Auto) 3.0 (2-11) % Eos % (Auto) 0.1 (0-4) % Baso % (Auto) 0.4 (0-2) % Lymph # (Auto) 0.8 L (1.2-4.9) X10*3/uL [place] # (Auto) 0.3 (0.1-1.2) X10*3/uL Eos # (Auto) 0.0 (0.0-0.4) X10*3/uL Baso # (Auto) 0.0 (0.0-0.2) X10*3/uL Abs Immat Gran (auto) 0.05 H (0.00-0.03) X10*3/uL Absolute Neuts (auto) 7.2 (2.0-8.3) x10*3/uL Absolute Nucleated RBC 0.000 (0.0-0.012) X10*3/uL Nucleated RBC % (auto) 0.0 (0.0-0.2) /100WBC PT 13.1 (11.1-13.3) SEC INR 1.1 (0.9-1.1) APTT 27.7 (26.0-36.8) SEC Sodium 138 (135-145) mmol/L Potassium 4.8 (3.3-5.1) mmol/L Chloride 108 (96-108) mmol/L Carbon Dioxide 21 L (22-29) mmol/L Anion Gap 14 (12-20) BUN 27 H (9-16) mg/dL Creatinine 1.22 (0.5-1.4) mg/dL Estim Creat Clear Calc 53.6 Estimated GFR 57 Random Glucose 130 H (60-115) mg/dL Calcium 9.3 (8.4-10.2) mg/dL Total Creatine Kinase 66 (38-174) U/L Troponin I High Sens 17.3 (<3.5-35.0) ng/L Independent Interpretation I performed an independent interpretation of an: EKG and CT Scan Interpretation: Baseline abdominal heart rate 64 beats per minute junctional rhythm, no acute ST-T elevation no acute ischemia Radiology Impression Discussion of test interpretation with radiology: I have reviewed the radiologist's reading. Radiologist Impression: CT/CT angio head neck stroke IMPRESSION: 1. Asymmetric hypoattenuation in the region of the left cerebellar peduncle and adjacent superior cerebellum, age-indeterminate, though for which acute infarct is a possibility. Recommend further evaluation with MRI. 2. No large vessel occlusion or significant stenosis in the intracranial circulation. 3. Calcifications at the bilateral common carotid artery bifurcations and proximal internal carotid arteries, resulting in approximately 50% luminal narrowing on the right and 70% luminal narrowing on the left. This critical result was discussed with Dr. Sue on 01/28/2024 3:37 AM, and it was ascertained that the content and urgency of the report was understood at the time of direct communication. [address] [address] [address] Scan Report Signed Patient: Ed Lobo MR#: [id number] : 1940 Acct:[id number] Age/Sex: 83 / M ADM Date: 01/28/24 Loc: .ED Attending Dr: Ordering Physician: Kishan Valentino MD Date of Service: 01/28/24 Procedure(s): CT head for stroke Accession Number(s): [id number] cc: Physician,Unknown ; Kishan Valentino MD~ EXAMINATION: CT HEAD WITHOUT CONTRAST (STROKE PROTOCOL) CLINICAL INFORMATION: Stroke protocol. Reason for Exam l hemiparesisi /cva COMPARISON: None available. TECHNIQUE: Contiguous axial imaging was performed from the skull base to vertex without intravenous administration of contrast. This CT examination was performed using dose optimization techniques as appropriate, variously including the following: *Automated exposure control *Adjustment of mA and/or kV according to patient size (this includes techniques or standardized protocols for targeted exams where dose is matched to indication/reason for exam; i.e. extremities or head) *Use of iterative reconstruction technique DLP: 719 mGy-cm FINDINGS: There is no evidence of acute intracranial hemorrhage or territorial infarction. No abnormal mass-effect or midline shift is seen. Mane to white matter differentiation is well preserved. No extra-axial fluid collections are identified. The ventricles appear prominent, raising the possibility of normal pressure hydrocephalus. There is mild periventricular white matter hypoattenuation consistent with chronic small vessel ischemic disease. Mild to moderate volume loss. The osseous structures and soft tissues are normal. Small fluid level in the left maxillary sinus. The mastoid air cells are well-aerated. CT/CT head for stroke IMPRESSION: 1. No acute intracranial pathology. 2. Prominent ventricles, raising the possibility of normal pressure hydrocephalus. 3. Chronic small vessel ischemic disease and volume loss. This stroke protocol result was discussed with Dr. Sue on 01/28/2024 2:10 AM. NIH Stroke Scale Internal: Initial- Upon Arrival Level of Consciousness: Alert Level of Consciousness Questions: Answers neither question correctly Level of Consciousness Commands: Performs both tasks correctly Best Gaze: Normal Visual: No visual loss Facial Palsy: Minor paralyis Motor Arm (Right): No drift Motor Arm (Left): Drift Motor Leg (Right): No drift Motor Leg (Left): Amputation or joint fusion Limb Ataxia: Absent Sensory: Normal Best Language: Mild to moderate aphasia Dysarthia: Mild to moderate dysarthria Extinction and Inattention: No abnormality Score: 6 Critical Care Time Critical Care Time Critical Care Time: Yes Total Critical Care Time: 45 Attestation: The patient was critically ill with a high probability of imminent or life threatening deterioration. I spent greater than 50???minutes of discontinuous time evaluating the patient,delivering critical care at the bedside, discussing and evaluating pertinent data with consultants. Critical care time does not include time spent performing separately billable procedures or teaching. Total time spent performing critical care was ?45??minutes. Discharge Plan Discharge Clinical Impression: Cerebrovascular accident Patient Disposition: Admitted As Inpatient Discharge Date/Time: 01/28/24 04:39
[2024-01-28 02:03] LABS: MANUAL DIFF FLAG NO
[2024-01-28 02:05] LABS: Basophils Percent Auto 0.4 % (0-2); Eosinophils Percent Auto 0.1 % (0-4); Hematocrit 33.6 % (42.0-52.0); Hemoglobin 11.5 g/dl (14.0-18.0); Imm Gran Abs Auto 0.05 X10*3/uL (0.00-0.03); Imm Gran Pct Auto 0.6 % (0.0-0.4); Lymphocytes Absolute Auto 0.8 X10*3/uL (1.2-4.9); Lymphocytes Percent Auto 9.3 % (20-40); Mean Corpuscular HGB Conc 34.2 g/dl (31.0-36.0); Mean Corpuscular Hemoglobin 31.5 pg (27.0-33.0); Mean Corpuscular Volume 92.1 fL (80.0-98.0); Mean Platelet Volume 10.6 fL (9.4-12.4); Monocytes Absolute Auto 0.3 X10*3/uL (0.1-1.2); Neutrophils Absolute Auto 7.2 x10*3/uL (2.0-8.3); Neutrophils Percent Auto 86.6 % (45-73); Platelet Count 143 X10*3/uL (160-400); Red Blood Count 3.65 X10*6/uL (4.60-5.80); Red Cell Distribution Width 13.1 % (11.0-16.0); White Blood Count 8.3 X10*3/uL (4.8-10.8)
[2024-01-28] MEDS: iohexoL 350 MG/ML 100 ML INFUS..BTL 85 ML IV (02:21)
[2024-01-28] MEDS: Tenecteplase 50 MG/10 ML KIT 23 MG IVPUSH (02:24)
--- NOTE | 2024-01-28 02:24 | PC.NURSE ---
TNK administered at this time to #20 PIV in right forearm.Flushed with 20 cc saline afterward.
[2024-01-28 02:53] LABS: INTERNATIONAL NORM RATIO 1.1 (0.9-1.1); Prothrombin Time 13.1 SEC (11.1-13.3)
[2024-01-28 02:56] LABS: Partial Thromboplastin Time 27.7 SEC (26.0-36.8); Stroke Lab Use COMPLETE
--- NOTE | 2024-01-28 02:56 | PC.NURSE ---
Cannot complete dysphasia screen at this time d/t TNK administration. Dysphasia screen can be performed after 8:24 am.
[2024-01-28] MEDS: ondansetron HCL 4 MG/2 ML VIAL IVPUSH (03:08)
--- NOTE | 2024-01-28 03:09 | PC.NURSE ---
Pt medicated per MAR for vomiting.
--- NOTE | 2024-01-28 03:20 | PC.NURSE ---
Per Dr. Valentino, no repeat CT needed at this time since pt has been vomiting throughout the day as well.
--- NOTE | 2024-01-28 03:49 | PC.NURSE ---
Update given to tapper supervisor at [facility].
[2024-01-28 04:05] LABS: Anion Gap 14 (12-20); Blood Urea Nitrogen 27 mg/dL (9-16); Calcium 9.3 mg/dL (8.4-10.2); Carbon Dioxide 21 mmol/L (22-29); Chloride 108 mmol/L (96-108); Creatinine Clr Calc Pharmacy 53.6; Estimated Glomerular Filt Rate 57; Glucose Random 130 mg/dL (60-115); Potassium 4.8 mmol/L (3.3-5.1); Sodium 138 mmol/L (135-145)
[2024-01-28 04:12] LABS: Troponin-I High Sensitivity 17.3 ng/L (<3.5-35.0)
--- NOTE | 2024-01-28 04:32 | PC.NURSE ---
Report to Xander HALEY for continued care in ICU
--- NOTE | 2024-01-28 04:48 | P.HPCC_ITS ---
History of Present Illness Date of Service: 01/28/24 Attending physician on admission: Oneida Shanks Chief Complaint: Stroke Mr. Lobo is an 83-year-old male with medical history of chronic AFib, dementia, GERD,? DM type 2, CKD stage III, essential hypertension, urinary retention, hyperlipidemia, BPH, atherosclerosis, PVD, left BKA? who was sent from? residential facility when he was noted to have slurred speech with facial droop, left-side weakness and was slow to respond.? Last known well time 0040. [facility] reported that the patient vomited earlier in the evening at about 1830 and was given Zofran. On arrival to the ED, the patient's blood pressure 167/55, heart rate 73, O2 sat 97% on room air. Laboratory data unremarkable. Imaging: Head CT: no acute intracranial pathology. Head/Neck CTA: No occlusion or stenosis. Left cerebellar age indeterminate stroke.? ED COURSE: TNK 23 mg was given at 0224 per neurology recommendation.? Zofran 4 mg. Review of Systems 2 Review of Systems: Yes Unobtainable due to mental condition PMFSH Past Medical History Medical History Chronic atrial fibrillation, unspecified Unspecified dementia, unspecified severity, without behavioral disturbance, psychotic disturbance, mood disturbance, and anxiety Gastro-esophageal reflux disease without esophagitis Major depressive disorder, recurrent, mild Unspecified osteoarthritis, unspecified site Type 2 diabetes mellitus without complications Personal history of COVID-19 Type 2 diabetes mellitus with other circulatory complications Chronic kidney disease, stage 3 unspecified Essential (primary) hypertension Retention of urine, unspecified Hyperlipidemia, unspecified Benign prostatic hyperplasia without lower urinary tract symptoms Atherosclerotic heart disease of [place] coronary artery without angina pectoris half-way (current) use of insulin Acquired absence of left leg below knee Peripheral vascular disease, unspecified Surgical History Surgical History Presence of aortocoronary bypass graft Social History Social History Alcohol intake: never Patient Tobacco Use Status: Never used Tobacco Advance Directives: No Advance Directives Information Provided: No Do you have a plan to hurt others: No Plan Meds Allergies Allergy/AdvReac Type Severity Reaction Status Date / Time No Known Allergies Allergy Verified 01/28/24 02:00 Active Medications: Current Medications Atorvastatin Calcium (Atorvastatin Calcium 10 Mg Tablet) 10 mg PO DAILY [facility] Home Medications ?Medication ?Instructions ?Recorded ?Confirmed ?Last Taken ?Type doxazosin 2 mg tablet 2 mg PO DAILY 05/31/23 05/31/23 Unknown History atorvastatin 10 mg tablet 10 mg PO BEDTIME 06/01/23 06/01/23 Unknown History folic acid 1 mg tablet 1 mg PO DAILY 06/01/23 06/01/23 Unknown History insulin glargine 100 unit/mL 39 unit subcut QDAY 06/01/23 06/01/23 Unknown History subcutaneous solution insulin lispro 100 unit/mL 6 unit subcut .at noon 06/01/23 06/01/23 Unknown History subcutaneous pen labetalol 100 mg tablet 50 mg PO BID 06/01/23 06/01/23 Unknown History losartan 50 mg tablet 50 mg PO DAILY 06/01/23 06/01/23 Unknown History polyethylene glycol 3350 17 gram 17 g PO DAILY 06/01/23 06/01/23 Unknown History oral powder packet tamsulosin 0.4 mg capsule 0.8 mg PO BEDTIME 06/01/23 06/01/23 Unknown History omeprazole 20 mg capsule,delayed 20 mg PO DAILY 06/02/23 Unknown History release Physical Exam 2 Vital Signs: Vital Signs: Last Vital Signs Pulse 57 01/28/24 04:30 Resp 20 01/28/24 04:30 BP 173/58 H 01/28/24 04:30 Pulse Ox 96 01/28/24 04:30 O2 Del Method Room Air 01/28/24 04:30 BMI result Body Mass Index 30.4 Const: General: no acute distress and alert Orientation/consciousness: p atient oriented x3 (answering appropriately.) HEENT: Head: Yes normocephalic and Yes atraumatic General nose exam: Normal external nose present (Nares patent, septum midline, sinuses nontender bilaterally.) Face and sinus: No face symmetric (left side of mouth drooping) Mouth: Normal oral and palatal mucosa present (No thrush, mucosa moist.) Eyes: Pupils: Equal, round and reactive pupils present Neck: Neck: Yes supple (no thyromegaly, trachea midline.) Carotids: normal carotid upstroke Resp: Auscultation: clear to auscultation bilaterally (normal work of breathing, no accessory muscle use) Cardio: Jugular venous distension: no JVD Rate: bradycardic Rhythm: r egular rhythm Heart sounds: no gallops, no murmurs and no rubs Peripheral pulses: Peripheral pulses 2+ throughout GI: Palpation (GI): Soft to palpation (nondistended.), nontender and Hernia present umbilical Auscultation: normal bowel sounds Skin: General skin exam: erythema (bilateral buttocks) Neuro: General: patient oriented x3 (answering appropriately.) Cranial nerves: Yes Equal, round and reactive pupils present, Yes Nystagmus not present, No Midline tongue present (left) and No Ability to bilaterally elevate shoulders present (shrugs right shoulder only) Cognition (Neuro): normal cognition S peech: Expressive aphasia present (slow to respond) Motor exam (neuro): A bnormal motor strength present (left hemiparesis) Extrem: General: Yes full ROM, Yes capillary refill normal and Yes no clubbing, cyanosis or edema Right upper extremity: normal to inspection R ight lower extremity: foot Details: other (4th and 5th toes amputated) Left lower extremity: lower leg (BKA) Psych: Affect: normal affect Attitude: cooperative Results Labs 01/28/24 01:56 01/28/24 02:43 Labs: Laboratory Results - last 24 hr 01/28/24 01/28/24 01:56 02:43 MCV 92.1 MCH 31.5 MCHC 34.2 RDW 13.1 Plt Count 143 L MPV 10.6 Immature Gran % (Auto) 0.6 H Neut % (Auto) 86.6 H Lymph % (Auto) 9.3 L [place] % (Auto) 3.0 Eos % (Auto) 0.1 Baso % (Auto) 0.4 Lymph # (Auto) 0.8 L [place] # (Auto) 0.3 Eos # (Auto) 0.0 Baso # (Auto) 0.0 Abs Immat Gran (auto) 0.05 H Absolute Neuts (auto) 7.2 Absolute Nucleated RBC 0.000 Nucleated RBC % (auto) 0.0 PT 13.1 INR 1.1 APTT 27.7 Anion Gap 14 Estim Creat Clear Calc 53.6 Estimated GFR 57 Random Glucose 130 H Calcium 9.3 Total Creatine Kinase 66 Troponin I High Sens 17.3 Imaging Radiologist's Impressions: Impressions Head CT 01/28/24 02:03 IMPRESSION: 1. No acute intracranial pathology. 2. Prominent ventricles, raising the possibility of normal pressure hydrocephalus. 3. Chronic small vessel ischemic disease and volume loss. This stroke protocol result was discussed with Dr. Sue on 01/28/2024 2:10 AM. Head/Neck CTA 01/28/24 02:31 IMPRESSION: 1. Asymmetric hypoattenuation in the region of the left cerebellar peduncle and adjacent superior cerebellum, age-indeterminate, though for which acute infarct is a possibility. Recommend further evaluation with MRI. 2. No large vessel occlusion or significant stenosis in the intracranial circulation. 3. Calcifications at the bilateral common carotid artery bifurcations and proximal internal carotid arteries, resulting in approximately 50% luminal narrowing on the right and 70% luminal narrowing on the left. This critical result was discussed with Dr. Sue on 01/28/2024 3:37 AM, and it was ascertained that the content and urgency of the report was understood at the time of direct communication. Assessment and Plan (1) Cerebrovascular accident: Qualifiers: CVA mechanism: unspecified Qualified Code(s): I63.9 - Cerebral infarction, unspecified Status: Acute Plan 83-year-old male with history of chronic AFib, dementia, GERD, DM type 2, CKD stage III, essential hypertension, urinary retention, hyperlipidemia, BPH, atherosclerosis, PVD, left BKA admitted to ICU for observation post TNK administration. Plan: Neuro:? Underlying dementia. CT head no acute infarct/bleed. CTA: no occlusion or stenosis.? Left hemiparesis with facial droop and expressive aphasia. Strength 2/5 on the left side. He is s/p TNK with minimal improvement to speech. MRI ordered. Appreciate neurology services.? Cardiac: Underlying chronic AFIB, HTN.? Will closely monitor blood pressure, heart rate.? Pulmonary: No acute issues. Renal:? CKD stage III. Appears to be at baseline. Monitor renal indices and urine output.? Endo:? No acute issues. Underlying DM, SS insulin per protocol. GI: Nausea, vomiting. Possibly due to cerebellar age indeterminant stroke. Zofran PRN. Heme/onc: No acute issues. Misc:? No acute issues Prophylaxis: Pneumatic hoses. No DVT anticoagulation for 24hr post TNK Diet:? NPO per protocol. Speech language consult placed.? Patient's care was discussed in detail with Dr. Shanks.? She is aware of all the above as well as the plan of care for this patient. Total time managing care of this patient today: 60 minutes.
[2024-01-28 05:06] LABS: Glucose, Whole Blood 137 mg/dL (60-115)
--- NOTE | 2024-01-28 06:39 | HO.SKINPHOTO ---
Location: Bilateral buttocks Category: Pressure Injury- Stage 1
--- NOTE | 2024-01-28 06:42 | PC.NURSE ---
Pt arrived to ICU from ED at approx 0500. Neuros checked per post TNK protocol, see assessment. Upon initial assessment- pt A+Ox2, slurred speech, able to follow simple commands, left facial droop, KNIGHT, generalized weakness L>R. Pupils 3mm equal/ reactive. Sinus on tele, HR 45-70s with 1st degree AV block. SBP 150-170s. +1 pitting edema to right LE. Lungs clear, on RA. Abd large, round. Positive bowel sounds. Pt reports some nausea, no vomiting. Left BKA. 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 Bruising to left hand. Blanchable buttock redness- barrier cream applied, WC consult placed. Pt has fentanyl patch to posterior right shoulder from facility- DIVISION H[employer] RESOURCES MANAGER aware. Bed locked and in lowest position. Call bourne within reach. Report given to oncoming RN.
[2024-01-28 07:27] LABS: Glucose, Whole Blood 125 mg/dL (60-115)
--- NOTE | 2024-01-28 07:54 | PM.EVENT ---
Event Note Date of Service: 01/28/24 Event Note: Patient is a 83 Y M with metabolic syndrome, diabetes mellitus, s/p L BKA, benign prostatic hypertrophy, chronic renal insufficiency, and atrial fibrillation, last known well 01/27 00:40, found to have aphasia, L facial droop, L upper and lower extremity weakness, presented to emergency department as stroke code, given TNK 02:24, with some improvement of aphasia, though no significant improvement of L facial droop and weakness; upon evaluation 01/27 AM, patient awake, alert, oriented to person, place, though unable to provide details of situation; patient found to have mild L facial droop, otherwise cranial nerve exam intact; 4/5 strength L upper extremity, 5/5 strength R upper extremity; appreciable L BKA, though able to flex and extend knee equally compared to R knee; plan to continue post-TNK care, avoiding anticoagulation, MRI brain, advance diet as tolerated, appreciate neurology recommendations Time Spent With Patient Time: Total time managing care of this patient today ____ minutes.
--- NOTE | 2024-01-28 08:07 | PHA.MEDREC ---
Pharmacy Consult ? Medication Reconciliation Pharmacy has completed the medication reconciliation. Med list from [facility].
[2024-01-28 09:05] LABS: Estimated Average Glucose 148 mg/dL; Hemoglobin A1c % 6.8 % (<6.0)
[2024-01-28] MEDS: Finasteride 5 MG TABLET PO (10:02)
[2024-01-28] MEDS: Atorvastatin Calcium 10 MG TABLET PO (10:02)
[2024-01-28 11:22] LABS: Glucose, Whole Blood 157 mg/dL (60-115)
[2024-01-28] MEDS: Insulin Lispro 100 UNIT/ML 3 ML VIAL SUBCUT (11:32)
--- NOTE | 2024-01-28 11:43 | MHC.SL.SWA ---
Speech Pathologist Impression: Risk of aspiration, mild oral phase dysphagia, slurred speech Risk of Aspiration Due to: Neurological Condition Reduced Cognition Dysphasia Diet Status: Upgrade, start on NDD2 Liquid Consistency and Strategies for Safe Swallow: Liquid Intake Recommendation: Thin Liquid Intake Strategies: Small Sips No Straws Solid Food Consistency: Dietary Recommendations: Grnd/Mech Altered (NDD2) Additional Modifications to Solid Foods: Patient is admitted with CVA, post-TNK administration, awaiting MRI, presents with mild oral phase dysphagia characterized by prolonged mastication and presence of oral residuals post-swallow d/t edentulous state and L-side facial droop. Recommend START on GROUND/MECH ALTERED (NDD2) diet and THIN liquids, per RN, patient tolerated pills WHOLE with LIQUID. Supervise directly during meals, provide assistance as needed and cues for oral clearance: small bites, dry swallow between bites, alternate bites with sips of liquid, clear oral cavity before taking more bites. Oral Medication Intake: Whole with Liquid Please contact the pharmacy regarding appropriate crushable or liquid drug formulations that are available whenever modified delivery is recommended. Compensatory Strategies and Precautions to be Taken for Safe Swallow: Sitting Upright (90 deg) Double Swallow No Straw Small Bites and Sips Alternate Liquids/Solids Rate of Ingestion Change Oral Check Avoid Specific Foods Supervision While Eating and Drinking for Safe Swallow: Total Assistance (1:1) Foods to Avoid: Hard to chew solids Swallowing Recommended Treatments: Compens. Strategy Educat. Recommendation for Speech: Inpatient Speech Therapy Comment: SHADING PAINTER will continue to follow to monitor tolerance of modified diet and to re-evaluate for potential upgrade if appropriate. Frequency/Duration: PRN M-F Date Range for Service Req: Timeline to reassess: Finance Insurance Manager Clinican/Clinical Fellow: No Supervisory Statement: I have reviewed and agree with the student/clinical fellow's documentation: N/A Speech Language Pathologist: Zenaida Toure M.A., CCC-SHADING PAINTER
--- NOTE | 2024-01-28 13:05 | PC.NURSE ---
Pt brought to have a brain MRI. projectile vomited x1 when placed supine. Immediately turn to on his side. MD notified. Unable to perform MRI. NPO per MD orders. Will continue to monitor.
--- NOTE | 2024-01-28 13:38 | P.CNNE_ITS ---
History of Present Illness Data of Consult Service Date: 01/28/24 Primary Care Provider: Unknown Physician HPI Reason for consult: Stroke 83 years old man with diabetes and left below-knee amputation resident of a [facility] was brought to hospital last night with new onset of slurred speech or left-sided weakness that happened about an hour to before he arrived. This senior care is close to the hospital. He was evaluated for possible acute stroke and ultimately treated with TNK. I saw him in ICU. He went down to have an MRI but apparently vomited while there and it could not be completed. There was no complaint of headache. There was no distress. There was no sign of seizure. Review of Systems 2 Review of Systems: No recent cold or flu-like illness or trauma. [facility] Past Medical History Medical History Chronic atrial fibrillation, unspecified Unspecified dementia, unspecified severity, without behavioral disturbance, psychotic disturbance, mood disturbance, and anxiety Gastro-esophageal reflux disease without esophagitis Major depressive disorder, recurrent, mild Unspecified osteoarthritis, unspecified site Type 2 diabetes mellitus without complications Personal history of COVID-19 Type 2 diabetes mellitus with other circulatory complications Chronic kidney disease, stage 3 unspecified Essential (primary) hypertension Retention of urine, unspecified Hyperlipidemia, unspecified Benign prostatic hyperplasia without lower urinary tract symptoms Atherosclerotic heart disease of [place] coronary artery without angina pectoris nursing home (current) use of insulin Acquired absence of left leg below knee Peripheral vascular disease, unspecified Surgical History Surgical History Presence of aortocoronary bypass graft Social History Social History Housing: Senior Care Alcohol intake: never Patient Tobacco Use Status: Never used Tobacco Use of substances other than those prescribed or required for medical reasons: No Currently Displaying Signs/Symptoms of Drug Intoxication Withdrawal: No Have you been hit, kicked, punched, or otherwise hurt by someone within the past year? If so, by whom?: No Do you feel safe in your current relationship?: No Current Relationship Is there a partner from a previous relationship who is making you feel unsafe now?: No Are you made to feel afraid or neglected: No Advance Directives: No Advance Directives Information Provided: No Do you have a plan to hurt others: No Plan Meds Allergies Allergy/AdvReac Type Severity Reaction Status Date / Time No Known Allergies Allergy Verified 01/28/24 02:00 Active Medications: Current Medications Atorvastatin Calcium (Atorvastatin Calcium 10 Mg Tablet) 10 mg PO DAILY [facility] Last Admin: 01/28/24 10:02 Dose: 10 mg Fentanyl (Fentanyl 12 Mcg Patch.Td72) 12 mcg TRANSDERMA Q72H [facility] Finasteride (Finasteride 5 Mg Tablet) 5 mg PO DAILY [facility] Last Admin: 01/28/24 10:02 Dose: 5 mg Glucose (Glucose Gel 15 Gm Gel..Gram.) 15 gm PO Q15M PRN; Protocol PRN Reason: per Hypoglycemia Standing Ord. Dextrose (D10) 250 mls @ 750 mls/hr IV Q15M PRN; Protocol PRN Reason: per Hypoglycemia Standing Ord. Insulin Human Lispro (Insulin Lispro 100 Unit/Ml 3 Ml Vial) 0 unit SUBCUT Q6H [facility]; Protocol Last Admin: 01/28/24 11:32 Dose: 2 unit Ondansetron HCl (Ondansetron Hcl 4 Mg/2 Ml Vial) 4 mg IVPUSH Q4H PRN PRN Reason: Nausea and Vomiting Home Medications ?Medication ?Instructions ?Recorded ?Confirmed ?Last Taken ?Type atorvastatin 10 mg tablet 10 mg PO BEDTIME 06/01/23 01/28/24 01/27/24 History folic acid 1 mg tablet 1 mg PO DAILY 06/01/23 01/28/24 01/27/24 History insulin glargine 100 unit/mL 46 unit subcut DAILY 06/01/23 01/28/24 01/27/24 History subcutaneous solution insulin lispro 100 unit/mL 6 unit subcut DAILY@1200 PRN Blood 06/01/23 01/28/24 01/27/24 History subcutaneous pen Glucose > 160 labetalol 100 mg tablet 50 mg PO BID 06/01/23 01/28/24 01/27/24 History polyethylene glycol 3350 17 gram 17 g PO DAILY 06/01/23 01/28/24 01/27/24 History oral powder packet omeprazole 20 mg capsule,delayed 20 mg PO DAILY@0630 06/02/23 01/28/24 01/27/24 History release acetaminophen 325 mg tablet 650 mg PO Q4H PRN Fever Or Pain 01/28/24 01/28/24 01/27/24 History bisacodyl 10 mg rectal suppository 10 mg WI DAILY PRN Constipation 01/28/24 01/28/24 Unknown History calcium carbonate 1,000 mg PO Q4H PRN Heartburn 01/28/24 01/28/24 Unknown History cholecalciferol (vitamin D3) 25 25 mcg PO DAILY 01/28/24 01/28/24 01/27/24 History mcg (1,000 unit) tablet (Vitamin D3) doxazosin 4 mg tablet 4 mg PO DAILY 01/28/24 01/28/24 01/27/24 History fentanyl 12 mcg/hr transdermal 1 patch transdermal Q72H 01/28/24 01/28/24 01/27/24 History patch lidocaine 4 % topical patch 2 patch topical DAILY lower back 01/28/24 01/28/24 01/27/24 History magnesium hydroxide 400 mg/5 mL 30 ml PO BEDTIME PRN Constipation 01/28/24 01/28/24 Unknown History oral suspension (Milk of Magnesia) melatonin 3 mg tablet 3 mg PO BEDTIME PRN Insomnia 01/28/24 01/28/24 Unknown History naloxone 4 mg/actuation nasal spray 4 mg intranasal Q3M PRN Opioid 01/28/24 01/28/24 Unknown History Overdose ondansetron HCl 4 mg tablet 4 mg PO Q4H PRN Nausea And Vomiting 01/28/24 01/28/24 01/27/24 History sennosides 8.6 mg tablet (senna) 17.2 mg PO BEDTIME PRN Constipation 01/28/24 01/28/24 Unknown History sodium phosphates 19 gram-7 118 ml WI DAILY PRN Constipation 01/28/24 01/28/24 Unknown History gram/118 mL enema (Fleet Enema) terbinafine HCl 1 % topical cream 1 appl topical BID PRN groin rash 01/28/24 01/28/24 Unknown History Physical Exam 2 Vital Signs: Vital Signs: Last Vital Signs Temp 97.6 F 01/28/24 13:00 Pulse 87 01/28/24 13:00 Resp 16 01/28/24 13:00 BP 148/53 H 01/28/24 13:00 Pulse Ox 95 01/28/24 13:00 O2 Del Method Room Air 01/28/24 13:00 BMI result Body Mass Index 29.7 Neuro: Other: He is alert and awake with normal spontaneity of speech fluency comprehension and flat affect. There is mild left-sided facial flatness. He is able to lift each arm up in the air with no obvious asymmetry. Left leg is amputated below- knee. He is wiggling toes in right foot. Deep tendon reflexes are absent. There is no visual extinction. Speech is okay. Results Labs 01/28/24 01:56 01/28/24 02:43 Labs: Short CBC 01/28/24 Range/Units 01:56 WBC 8.3 (4.8-10.8) X10*3/uL Hgb 11.5 L (14.0-18.0) g/dl Hct 33.6 L (42.0-52.0) % Plt Count 143 L (160-400) X10*3/uL BMP 01/28/24 02:43 Sodium 138 Potassium 4.8 Chloride 108 Carbon Dioxide 21 L BUN 27 H Creatinine 1.22 Calcium 9.3 Cardiac Enzymes 01/28/24 Range/Units 02:43 Total Creatine Kinase 66 (38-174) U/L His head CT revealed no obvious acute abnormality but quite significant ventriculomegaly and cerebral atrophy that was somewhat more pronounced in left hemisphere CTA did not reveal any significant intracranial large vessel disease. Assessment and Plan (1) Cerebrovascular accident: Qualifiers: CVA mechanism: unspecified Qualified Code(s): I63.9 - Cerebral infarction, unspecified Status: Acute 83 years old man with diabetes and probably new onset of atrial fibrillation presented with acute slurred speech left-sided weakness. He probably had embolic cerebral infarction that was successfully treated with TNK. His deficit has mostly resolved. At this time, my recommendation is to obtain a noncontrast MRI of brain maybe tomorrow and continue with PT OT consultation. He probably has underlying dementia related to normal-pressure hydrocephalus and cerebral atrophy. Dementia and gait disorder are multifactorial in nature a can be looked at as an outpatient. As far as further stroke prevention is concerned, decision can be made after reviewing his MRI but most likely he could benefit from long-term anticoagulation. Procedures Date of Service Date of Service: 01/28/24
[2024-01-28] MEDS: fentaNYL 12 MCG PATCH.TD72 TRANSDERMA (14:25)
--- NOTE | 2024-01-28 14:39 | MHC.CM.PN ---
Attempted to meet with patient in regards to discharge planning. Patient currently sleeping. Spoke with patient's son/HCP, Imtiaz, via telephone at [phone]. 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 Anticipate patient will return to facility via BLS when medically stable. PCP verified. Copy of HCP verified to be on file. IMM explained and left at bedside. Continue to monitor for d/c needs.
--- NOTE | 2024-01-28 16:40 | ECG_ITS ---
Test Reason : RHYTHM CHECK Blood Pressure : / mmHG Vent. Rate : 104 BPM Atrial Rate : 000 BPM P-R Int : 000 ms QRS Dur : 080 ms QT Int : 312 ms P-R-T Axes : 000 -04 059 degrees QTc Int : 410 ms Accelerated Junctional rhythm with intermittent RBBB Cannot rule out Anterior infarct , age undetermined Abnormal ECG When compared to the previous EKG of Intermittent RBBB present now Accelerated junctional rhythm Referred By: Oneida Shanks Electronically Signed By:Dangelo Tierney
--- NOTE | 2024-01-28 17:00 | ECG_ITS ---
Test Reason : RHYTHM CHECK Blood Pressure : / mmHG Vent. Rate : 105 BPM Atrial Rate : 000 BPM P-R Int : 000 ms QRS Dur : 120 ms QT Int : 374 ms P-R-T Axes : 000 -22 034 degrees QTc Int : 494 ms Wide QRS rhythm with Premature ventricular complexes or Fusion complexes Right bundle branch block Inferior infarct , age undetermined Abnormal ECG When compared to the previous EKG of Cannot rule out inferior infarct RBBB present Referred By: Oneida Shanks Electronically Signed By:Dangelo Tierney
[2024-01-28 17:24] LABS: Glucose, Whole Blood 111 mg/dL (60-115)
[2024-01-28 23:17] LABS: Glucose, Whole Blood 111 mg/dL (60-115)
[2024-01-29] VITALS (13 sets, daily range): BP systolic 114–156; BP diastolic 33–72; PULSE 52–112; RESP 10–20; TEMP 36.1–36.9; O2SAT 93–97; BMI 32.7
[2024-01-29 00:10] LABS: Prothrombin Time Whole Bld POC 13.4 sec (11.1-13.5); ~PT, ~INR - Anti Coag Clinic 1.1 (0.9-1.1)
[2024-01-29 05:06] LABS: Glucose, Whole Blood 83 mg/dL (60-115)
[2024-01-29] MEDS: Dextrose 10 % 250 ML 750 ML IV (05:08)
[2024-01-29 05:57] LABS: MANUAL DIFF FLAG NO
[2024-01-29 05:57] LABS: Glucose, Whole Blood 156 mg/dL (60-115)
[2024-01-29 06:00] LABS: Basophils Percent Auto 0.4 % (0-2); Eosinophils Absolute Auto 0.1 X10*3/uL (0.0-0.4); Eosinophils Percent Auto 1.1 % (0-4); Hematocrit 29.9 % (42.0-52.0); Imm Gran Abs Auto 0.07 X10*3/uL (0.00-0.03); Imm Gran Pct Auto 0.9 % (0.0-0.4); Lymphocytes Absolute Auto 1.9 X10*3/uL (1.2-4.9); Lymphocytes Percent Auto 24.9 % (20-40); Mean Corpuscular HGB Conc 33.4 g/dl (31.0-36.0); Mean Corpuscular Hemoglobin 31.5 pg (27.0-33.0); Mean Corpuscular Volume 94.3 fL (80.0-98.0); Mean Platelet Volume 10.9 fL (9.4-12.4); Monocytes Absolute Auto 0.6 X10*3/uL (0.1-1.2); Monocytes Percent Auto 8.1 % (2-11); Neutrophils Absolute Auto 4.9 x10*3/uL (2.0-8.3); Neutrophils Percent Auto 64.6 % (45-73); Platelet Count 129 X10*3/uL (160-400); Red Blood Count 3.17 X10*6/uL (4.60-5.80); Red Cell Distribution Width 13.4 % (11.0-16.0); White Blood Count 7.5 X10*3/uL (4.8-10.8)
[2024-01-29 06:17] LABS: Anion Gap 11 (12-20); Blood Urea Nitrogen 28 mg/dL (9-16); Calcium 8.8 mg/dL (8.4-10.2); Carbon Dioxide 22 mmol/L (22-29); Chloride 106 mmol/L (96-108); Cholesterol 118 mg/dL (<200); Creatinine Clr Calc Pharmacy 42.2; Estimated Glomerular Filt Rate 42; Glucose Random 596 mg/dL (60-115); HDL Cholesterol 21 mg/dL (>40); LDL Cholesterol Calculated 83 mg/dL (<100); Potassium 4.3 mmol/L (3.3-5.1); Sodium 135 mmol/L (135-145); Triglycerides 74 mg/dL (<150)
[2024-01-29] MEDS: Finasteride 5 MG TABLET PO (08:39)
[2024-01-29] MEDS: Atorvastatin Calcium 10 MG TABLET PO (08:39)
[2024-01-29] MEDS: Insulin Glargine,Hum.rec.anlog 100 UNIT/ML 10 ML VIAL 35 UNIT SUBCUT (09:18)
--- NOTE | 2024-01-29 10:37 | PM.CCPN ---
Subjective Subjective Date of Service: 01/29/24 Interval History: 83-year-old gentleman with underlying AFib, dementia, GERD, diabetes mellitus, CKD stage 3, urinary retention, BPH PVD status post left BKA admitted on 01/28/2024 with acute CVA with recent droop and left-sided weakness. Initial CT had demonstrated no hemorrhage. Patient had TNK administered in was admitted to intensive care unit for close monitoring. Critical Care Time (minutes): 0 Physical Exam Vital Signs: Vital Signs: Last Vital Signs Temp 98.3 F 01/29/24 08:00 Pulse 62 01/29/24 09:00 Resp 20 01/29/24 09:00 BP 117/49 L 01/29/24 09:00 Pulse Ox 93 01/29/24 09:00 O2 Del Method Room Air 01/29/24 09:00 BMI result Body Mass Index 32.7 Const: General: no acute distress, alert and awake Eyes: Sclerae: sclerae normal EOM: EOMs intact bilaterally Neck: Neck: Yes no lymphadenopathy, Yes trachea midline and Yes supple Resp: Effort & Inspection: normal respiratory effort and no respiratory distress Auscultation: clear to auscultation bilaterally Cardio: Rate: regular rate Rhythm: regular rhythm Heart sounds: no gallops, no murmurs and no rubs GI: Palpation (GI): Soft to palpation and Other GI palpation findings present ( Nontender) Auscultation: normal bowel sounds Neuro: Other: Cantankerous, not fully compliant with neurologic exam. Strength appears to be equal bilateral 5 out of 5. Noncompliant with cranial nerves exam, but no gross deficits noted. Extrem: General: Yes no pedal edema, No clubbing, No cyanosis and Yes other (Left BKA) Objective Data Labs 01/29/24 05:31 01/29/24 05:31 Labs: Laboratory Results - last 24 hr 01/28/24 01/28/24 01/28/24 01:52 11:19 17:20 WBC RBC Hgb Hct MCV MCH MCHC RDW Plt Count MPV Immature Gran % (Auto) Neut % (Auto) Lymph % (Auto) [place] % (Auto) Eos % (Auto) Baso % (Auto) Lymph # (Auto) [place] # (Auto) Eos # (Auto) Baso # (Auto) Abs Immat Gran (auto) Absolute Neuts (auto) Absolute Nucleated RBC Nucleated RBC % (auto) Whole Blood PT 13.4 Whole Blood INR 1.1 Sodium Potassium Chloride Carbon Dioxide Anion Gap BUN Creatinine Estim Creat Clear Calc Estimated GFR POC Glucose 157 H 111 Random Glucose Calcium Triglycerides Cholesterol LDL Cholesterol, Calc HDL Cholesterol 01/28/24 01/29/24 01/29/24 23:11 05:02 05:31 WBC 7.5 RBC 3.17 L Hgb 10.0 L Hct 29.9 L MCV 94.3 MCH 31.5 MCHC 33.4 RDW 13.4 Plt Count 129 L MPV 10.9 Immature Gran % (Auto) 0.9 H Neut % (Auto) 64.6 Lymph % (Auto) 24.9 [place] % (Auto) 8.1 Eos % (Auto) 1.1 Baso % (Auto) 0.4 Lymph # (Auto) 1.9 [place] # (Auto) 0.6 Eos # (Auto) 0.1 Baso # (Auto) 0.0 Abs Immat Gran (auto) 0.07 H Absolute Neuts (auto) 4.9 Absolute Nucleated RBC 0.000 Nucleated RBC % (auto) 0.0 Whole Blood PT Whole Blood INR Sodium 135 Potassium 4.3 Chloride 106 Carbon Dioxide 22 Anion Gap 11 L BUN 28 H Creatinine 1.60 H Estim Creat Clear Calc 42.2 Estimated GFR 42 POC Glucose 111 83 Random Glucose 596 H* Calcium 8.8 Triglycerides 74 Cholesterol 118 LDL Cholesterol, Calc 83 HDL Cholesterol 21 L 01/29/24 05:53 WBC RBC Hgb Hct MCV MCH MCHC RDW Plt Count MPV Immature Gran % (Auto) Neut % (Auto) Lymph % (Auto) [place] % (Auto) Eos % (Auto) Baso % (Auto) Lymph # (Auto) [place] # (Auto) Eos # (Auto) Baso # (Auto) Abs Immat Gran (auto) Absolute Neuts (auto) Absolute Nucleated RBC Nucleated RBC % (auto) Whole Blood PT Whole Blood INR Sodium Potassium Chloride Carbon Dioxide Anion Gap BUN Creatinine Estim Creat Clear Calc Estimated GFR POC Glucose 156 H Random Glucose Calcium Triglycerides Cholesterol LDL Cholesterol, Calc HDL Cholesterol Progress Note: A&P Assessment and plan (1) Cerebrovascular accident: Status: Acute (2) Type 2 diabetes mellitus without complications: Status: Acute (3) Unspecified dementia, unspecified severity, without behavioral disturbance, psychotic disturbance, mood disturbance, and anxiety: Status: Acute (4) Chronic atrial fibrillation, unspecified: Status: Acute (5) Chronic kidney disease, stage 3 unspecified: Status: Acute (6) Peripheral vascular disease, unspecified: Status: Acute (7) Acquired absence of left leg below knee: Status: Acute Plan Assessment: 83-year-old gentleman admitted with acute CVA, now status post TNK with significant improvement. Plan: Neuro: CVA status post TNK. Neurology service care appreciated. MRI is pending. Cardiac: No acute issues. Underlying AFib and PVD. Pulmonary: No acute issues. Renal: No acute issues. Underlying CKD. Endo: No acute issues. Underlying diabetes mellitus. GI: No acute issues. ID: No acute issues Heme/Onc: No acute issues. Psych: No acute issues. Miscellaneous: No acute issues. Prophylaxis: Compression device Diet: Regular Quality Stroke Does the patient have a stroke diagnosis?: Yes Reason for No Anti-thrombotic by Day Two: Drug treatment not indicated (Pending imaging) VTE Prior VTE?: No VTE Risk Level:: Medical - moderate - high VTE Device Contraindication: N/A - Device Ordered VTE Drug Contraindication: Treatment Not Indicated
--- NOTE | 2024-01-29 11:08 | MHC.SLORD ---
Speech Language Pathology Order Status: Attempted PO trials with patient in ICU, but unable to complete with patient refusing all offerings of food. Able to repeat oral [facility] examination, continue to note mild L-side facial droop, all other aspects WFL. Patient's son, Imtiaz, was present, reported that patient's dentures were left at the [facility] and he was told by Dr. Hoyt, he may be discharged soon, therefore will not bring them in. Patient is recommended a ground/[facility] altered (NDD2) diet due to edentulous state, with thin liquids.
[2024-01-29 11:54] LABS: Glucose, Whole Blood 103 mg/dL (60-115)
[2024-01-29 17:22] LABS: Glucose, Whole Blood 131 mg/dL (60-115)
[2024-01-29] MEDS: Aspirin Enteric Coated 81 MG TABLET.DR PO (17:22)
[2024-01-29] MEDS: Atorvastatin Calcium 40 MG TABLET PO (17:22)
--- NOTE | 2024-01-29 19:24 | PC.NURSE ---
Addendum entered by Shruti Leal RN 01/30/24 05:24: Pt alternating between SR with first degree HB and accelerated junctional rhythm overnight; tele reviewed with CMT for this admission and this is not a new finding for the pt. However, early this morning pt's HR was noted to be newly ranging 30-40's for approximately two minute during the 02:00 hour. Vitals obtained were stable and pt denied symptoms, no distress noted. Covering Dr. Amaya notified with typewriter ribbon winder ? to obtain EKG and chem including magnesium and phos levels. EKG obtained per MD to rule out ? second degree HB though pt HR improved to 70's once able to get a clear EKG which showed NSR with first degree. Labs deferred at this time. Plan of care continues. Addendum entered by Shruti Leal RN 01/29/24 20:06: Patient just arrived back to unit from MRI. Transferred from stretcher to bed, incontinence care provided for urine and smear of stool as pt anatomy is unable to accomodate at condom catheter. SCD replaced to RLE. Tele monitor placed back on. Bed alarm on/high falls measures in place. Original Note: Assumed care of patient at 19:15 this evening. Pt transported to previously ordered MRI during report, off the floor at this time.
--- NOTE | 2024-01-29 21:18 | PM.EVENT ---
Event Note Date of Service: 01/29/24 Event Note: Got a call from [facility] that imaging shows acute infarction along left cerebellar hemisphere with focal hemorrhagic conversion. Discussed with ICU provider, Dr Shanks and will transfer the patient to ICU for close monitoring and frequent neuro checks. Time Spent With Patient Time: Total time managing care of this patient today ____ minutes.
[2024-01-29 23:11] LABS: Glucose, Whole Blood 153 mg/dL (60-115)
[2024-01-30] VITALS (7 sets, daily range): BP systolic 144–168; BP diastolic 62–80; PULSE 56–90; RESP 16–20; TEMP 36.4–37; O2SAT 95–98
--- NOTE | 2024-01-30 | ECG_ITS ---
Test Reason : rhythim change Blood Pressure : / mmHG Vent. Rate : 067 BPM Atrial Rate : 064 BPM P-R Int : 000 ms QRS Dur : 086 ms QT Int : 384 ms P-R-T Axes : 000 -02 027 degrees QTc Int : 405 ms Sinus rhythm with marked first degree AV block. Low voltage QRS Borderline ECG When compared with ECG of 28-JAN-2024 16:40, Sinus rhythm has replaced accelerated junctional rhythm Referred By: Dominique Amaya Electronically Signed By:Dangelo Tierney
[2024-01-30 05:46] LABS: Glucose, Whole Blood 93 mg/dL (60-115)
--- NOTE | 2024-01-30 08:10 | P.EN_ITS ---
Event Note Date of Service: 01/30/24 Event Note: I was notified 05/ PM of Mr. Lobo's MRI brain results demonstrating likely focal cerebellar hemorrhage; after discussing with neurology, Dr. Romano, results are unlikely to change care and patient can be maintained on current medical management, including Q4h neurological checks; there was concern that Mr. Lobo developed R UE pronator drift; our team, including the ICU nurse caring for Mr. Lobo the previous night, evaluated Mr. Lobo and did not el icit R UE pronator drift with additional verbal prompting, and were grossly reassured by his neurological exam; ICU available for any additional questions, concerns, or clinical change Time Spent With Patient Time: Total time managing care of this patient today ____ minutes.
[2024-01-30 08:30] LABS: MANUAL DIFF FLAG NO
[2024-01-30 08:33] LABS: Basophils Percent Auto 0.5 % (0-2); Eosinophils Absolute Auto 0.2 X10*3/uL (0.0-0.4); Hematocrit 30.8 % (42.0-52.0); Hemoglobin 10.5 g/dl (14.0-18.0); Imm Gran Abs Auto 0.04 X10*3/uL (0.00-0.03); Imm Gran Pct Auto 0.5 % (0.0-0.4); Lymphocytes Absolute Auto 2.3 X10*3/uL (1.2-4.9); Lymphocytes Percent Auto 27.9 % (20-40); Mean Corpuscular HGB Conc 34.1 g/dl (31.0-36.0); Mean Corpuscular Hemoglobin 31.4 pg (27.0-33.0); Mean Corpuscular Volume 92.2 fL (80.0-98.0); Mean Platelet Volume 9.8 fL (9.4-12.4); Monocytes Absolute Auto 0.8 X10*3/uL (0.1-1.2); Monocytes Percent Auto 9.3 % (2-11); Neutrophils Absolute Auto 4.8 x10*3/uL (2.0-8.3); Neutrophils Percent Auto 59.8 % (45-73); Platelet Count 131 X10*3/uL (160-400); Red Blood Count 3.34 X10*6/uL (4.60-5.80); Red Cell Distribution Width 13.3 % (11.0-16.0); White Blood Count 8.1 X10*3/uL (4.8-10.8)
[2024-01-30 08:47] LABS: Anion Gap 12 (12-20); Blood Urea Nitrogen 26 mg/dL (9-16); Calcium 9.5 mg/dL (8.4-10.2); Carbon Dioxide 22 mmol/L (22-29); Chloride 112 mmol/L (96-108); Creatinine Clr Calc Pharmacy 49.7; Estimated Glomerular Filt Rate 50; Glucose Random 90 mg/dL (60-115); Potassium 4.1 mmol/L (3.3-5.1); Sodium 142 mmol/L (135-145)
[2024-01-30] MEDS: Finasteride 5 MG TABLET PO (09:38)
[2024-01-30] MEDS: Insulin Glargine,Hum.rec.anlog 100 UNIT/ML 10 ML VIAL 35 UNIT SUBCUT (09:38)
[2024-01-30] MEDS: Atorvastatin Calcium 40 MG TABLET PO (09:38)
--- NOTE | 2024-01-30 11:09 | P.CONCA_ITS ---
History of Present Illness History of Present Illness Date of Service: 01/30/24 Requesting physician: Fidencio Ledesma Chief complaint: Stroke, Atrial fibrillation Narrative: 83-year-old gentleman who presented with acute CVA and now status post TNK. He has history of atrial fibrillation. He was not on anticoagulation on admission. He has a poor historian and is unable to give any history. He has central sternotomy scar but is saying that he had surgery when he was a child had [facility]. Details are unclear. He does have history of peripheral vascular disease. I reviewed his chart at [facility] it appears he had previous femoral to posterior tibial bypass on the right side. He is saying he has weakness in the right arm. Denying chest pain or shortness of breath. EKG and telemetry reviewed and is not showing any obvious atrial fibrillation. He does have potential accelerated junctional rhythm with right bundle-branch block on EKG. [facility] Past Medical History Medical History (Updated 01/29/24 @ 10:50 by Sean Hoyt MD) Chronic atrial fibrillation, unspecified Unspecified dementia, unspecified severity, without behavioral disturbance, psychotic disturbance, mood disturbance, and anxiety Gastro-esophageal reflux disease without esophagitis Major depressive disorder, recurrent, mild Unspecified osteoarthritis, unspecified site Type 2 diabetes mellitus without complications Personal history of COVID-19 Type 2 diabetes mellitus with other circulatory complications Chronic kidney disease, stage 3 unspecified Essential (primary) hypertension Retention of urine, unspecified Hyperlipidemia, unspecified Benign prostatic hyperplasia without lower urinary tract symptoms Atherosclerotic heart disease of [place] coronary artery without angina pectoris 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 If so, by whom?: No Do you feel safe in your current relationship?: No Current Relationship Is there a partner from a previous relationship who is making you feel unsafe now?: No Are you made to feel afraid or neglected: No Advance Directives: No Advance Directives Information Provided: No Do you have a plan to hurt others: No Plan service: Yes Meds Allergies Allergy/AdvReac Type Severity Reaction Status Date / Time No Known Allergies Allergy Verified 01/28/24 02:00 Active Medications: Current Medications Atorvastatin Calcium (Atorvastatin Calcium 40 Mg Tablet) 40 mg PO DAILY [facility] Last Admin: 01/30/24 09:38 Dose: 40 mg Fentanyl (Fentanyl 12 Mcg Patch.Td72) 12 mcg TRANSDERMA Q72H [facility] Last Admin: 01/28/24 14:25 Dose: 12 mcg Finasteride (Finasteride 5 Mg Tablet) 5 mg PO DAILY [facility] Last Admin: 01/30/24 09:38 Dose: 5 mg Glucose (Glucose Gel 15 Gm Gel..Gram.) 15 gm PO Q15M PRN; Protocol PRN Reason: per Hypoglycemia Standing Ord. Dextrose (D10) 250 mls @ 750 mls/hr IV Q15M PRN; Protocol PRN Reason: per Hypoglycemia Standing Ord. Last Infusion: 01/29/24 05:35 Dose: Infused Insulin Glargine (Insulin Glargine,Hum.Rec.Anlog 100 Unit/Ml 10 Ml Vial) 35 unit SUBCUT DAILY [facility] Last Admin: 01/30/24 09:38 Dose: 35 unit Insulin Human Lispro (Insulin Lispro 100 Unit/Ml 3 Ml Vial) 0 unit SUBCUT Q6H [facility]; Protocol Last Admin: 01/30/24 05:54 Dose: Not Given Ondansetron HCl (Ondansetron Hcl 4 Mg/2 Ml Vial) 4 mg IVPUSH Q4H PRN PRN Reason: Nausea and Vomiting Home Medications ?Medication ?Instructions ?Recorded ?Confirmed ?Last Taken ?Type atorvastatin 10 mg tablet 10 mg PO BEDTIME 06/01/23 01/28/24 01/27/24 History folic acid 1 mg tablet 1 mg PO DAILY 06/01/23 01/28/24 01/27/24 History insulin glargine 100 unit/mL 46 unit subcut DAILY 06/01/23 01/28/24 01/27/24 History subcutaneous solution insulin lispro 100 unit/mL 6 unit subcut DAILY@1200 PRN Blood 06/01/23 01/28/24 01/27/24 History subcutaneous pen Glucose > 160 labetalol 100 mg tablet 50 mg PO BID 06/01/23 01/28/24 01/27/24 History polyethylene glycol 3350 17 gram 17 g PO DAILY 06/01/23 01/28/24 01/27/24 History oral powder packet omeprazole 20 mg capsule,delayed 20 mg PO DAILY@0630 06/02/23 01/28/24 01/27/24 History release acetaminophen 325 mg tablet 650 mg PO Q4H PRN Fever Or Pain 01/28/24 01/28/24 01/27/24 History bisacodyl 10 mg rectal suppository 10 mg ND DAILY PRN Constipation 01/28/24 01/28/24 Unknown History calcium carbonate 1,000 mg PO Q4H PRN Heartburn 01/28/24 01/28/24 Unknown History cholecalciferol (vitamin D3) 25 25 mcg PO DAILY 01/28/24 01/28/24 01/27/24 History mcg (1,000 unit) tablet (Vitamin D3) doxazosin 4 mg tablet 4 mg PO DAILY 01/28/24 01/28/24 01/27/24 History fentanyl 12 mcg/hr transdermal 1 patch transdermal Q72H 01/28/24 01/28/24 01/27/24 History patch lidocaine 4 % topical patch 2 patch topical DAILY lower back 01/28/24 01/28/24 01/27/24 History magnesium hydroxide 400 mg/5 mL 30 ml PO BEDTIME PRN Constipation 01/28/24 01/28/24 Unknown History oral suspension (Milk of Magnesia) melatonin 3 mg tablet 3 mg PO BEDTIME PRN Insomnia 01/28/24 01/28/24 Unknown History naloxone 4 mg/actuation nasal spray 4 mg intranasal Q3M PRN Opioid 01/28/24 01/28/24 Unknown History Overdose ondansetron HCl 4 mg tablet 4 mg PO Q4H PRN Nausea And Vomiting 01/28/24 01/28/24 01/27/24 History sennosides 8.6 mg tablet (senna) 17.2 mg PO BEDTIME PRN Constipation 01/28/24 01/28/24 Unknown History sodium phosphates 19 gram-7 118 ml ND DAILY PRN Constipation 01/28/24 01/28/24 Unknown History gram/118 mL enema (Fleet Enema) terbinafine HCl 1 % topical cream 1 appl topical BID PRN groin rash 01/28/24 01/28/24 Unknown History Physical Exam 2 Vital Signs: Vital Signs: Last Vital Signs Temp 98.3 F 01/30/24 07:07 Pulse 66 01/30/24 09:55 Resp 16 01/30/24 07:07 BP 155/67 H 01/30/24 09:55 Pulse Ox 98 01/30/24 07:07 O2 Del Method Room Air 01/30/24 07:07 BMI result Body Mass Index 32.7 GENERAL APPEARANCE: in no acute distress, pleasant. NECK: no carotid bruit, no jugular venous distention. SKIN: no suspicious lesions, warm and dry. HEART: no murmurs, regular rate and rhythm. LUNGS: clear to auscultation bilaterally. ABDOMEN: soft, nontender. EXTREMITIES: no edema. Bruising left hand. PERIPHERAL PULSES: equal. Objective Labs and Meds 01/30/24 08:25 01/30/24 08:25 Lab results: Laboratory Results - last 24 hr 01/29/24 01/29/24 01/29/24 11:51 17:18 23:07 WBC RBC Hgb Hct MCV MCH MCHC RDW Plt Count MPV Immature Gran % (Auto) Neut % (Auto) Lymph % (Auto) [place] % (Auto) Eos % (Auto) Baso % (Auto) Lymph # (Auto) [place] # (Auto) Eos # (Auto) Baso # (Auto) Abs Immat Gran (auto) Absolute Neuts (auto) Absolute Nucleated RBC Nucleated RBC % (auto) Sodium Potassium Chloride Carbon Dioxide Anion Gap BUN Creatinine Estim Creat Clear Calc Estimated GFR POC Glucose 103 131 H 153 H Random Glucose Calcium 01/30/24 01/30/24 05:39 08:25 WBC 8.1 RBC 3.34 L Hgb 10.5 L Hct 30.8 L MCV 92.2 MCH 31.4 MCHC 34.1 RDW 13.3 Plt Count 131 L MPV 9.8 Immature Gran % (Auto) 0.5 H Neut % (Auto) 59.8 Lymph % (Auto) 27.9 [place] % (Auto) 9.3 Eos % (Auto) 2.0 Baso % (Auto) 0.5 Lymph # (Auto) 2.3 [place] # (Auto) 0.8 Eos # (Auto) 0.2 Baso # (Auto) 0.0 Abs Immat Gran (auto) 0.04 H Absolute Neuts (auto) 4.8 Absolute Nucleated RBC 0.000 Nucleated RBC % (auto) 0.0 Sodium 142 Potassium 4.1 Chloride 112 H Carbon Dioxide 22 Anion Gap 12 BUN 26 H Creatinine 1.36 Estim Creat Clear Calc 49.7 Estimated GFR 50 POC Glucose 93 Random Glucose 90 Calcium 9.5 D Imaging Radiologist's impression: Impressions Brain MRI 01/29/24 19:58 IMPRESSION: Acute infarction along the superior medial left cerebellar hemisphere corresponding to hypodensity on the prior CT examination. Associated susceptibility artifact likely represents focal hemorrhagic conversion. Chronic areas of infarction are noted in the left thalamus and bilateral cerebellar hemispheres. Ventriculomegaly with findings suggestive of normal pressure hydrocephalus. Clinical correlation is recommended. 1.4 cm lesion in the left parotid gland is only partially visualized but may represent a primary parotid neoplasm. ENT evaluation is recommended. Head CT 01/30/24 08:09 IMPRESSION: Mild amount of petechial hemorrhage at the site of the acute infarct in the left middle cerebellar peduncle and anterosuperior left cerebellar hemisphere. Otherwise, no gross hemorrhagic transformation of the infarct. 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 High left parietal vertex arachnoid cyst. [id number] chronic white matter microangiopathy and diffuse brain parenchymal volume loss. Focal high left parietal scalp soft tissue thickening; correlate with physical exam findings. Nonspecific high attenuation dependent fluid level in the left maxillary antrum, as on the prior MRI. Findings may be due to proteinaceous fluid. If the patient has had any recent facial trauma, blood products cannot be ruled out; clinically correlate. Assessment and Plan (1) Peripheral vascular disease, unspecified: Status: Acute (2) Cerebrovascular accident: Qualifiers: CVA mechanism: unspecified Qualified Code(s): I63.9 - Cerebral infarction, unspecified Status: Acute Plan [age] gentleman presenting for acute CVA is now status post TNK. There is documented history of atrial fibrillation although no EKG in the system is showing atrial fibrillation and he has not been on anticoagulation. He is high-risk for stroke stone his risk profile. Currently telemetry has not shown atrial fibrillation. We can monitor him closely on telemetry. MRI of the brain done yesterday showed acute infarction along the superior medial left cerebellar hemisphere. Will hemorrhagic conversion is also noted. If there are any records available which confirmed atrial fibrillation then he can be started on Eliquis. Given focal hemorrhagic conversion will discuss with Neurology before starting any anticoagulation. If atrial fibrillation is not confirmed then he should be on aspirin and Plavix. We will follow along with you. Thank you for allowing me to participate in the care of your patient. Please feel free to contact me if you have any questions. Procedures Date of Service Date of Service: 01/30/24
[2024-01-30 11:44] LABS: Glucose, Whole Blood 114 mg/dL (60-115)
--- NOTE | 2024-01-30 13:47 | P.PNIM_ITS ---
Subjective Subjective Date of Service: 01/31/24 Interval History: Being followed for acute left cerebellar CVA Patient awake alert feeling better minimal left upper extremity weakness, normal speech denies nausea, no vomiting, no headache, no dizziness no other acute issues overnight, heart rate was noted to be in 30s. Denies chest pain, no palpitations no lightheadedness or fainting. Review of Systems All other system reviewed and negative Physical Exam 2 Vital Signs: Vital Signs: Last Vital Signs Temp 98.4 F 01/30/24 11:22 Pulse 59 01/30/24 11:22 Resp 16 01/30/24 11:22 BP 158/63 H 01/30/24 11:22 Pulse Ox 95 01/30/24 11:22 O2 Del Method Room Air 01/30/24 11:22 BMI result Body Mass Index 32.7 Const: Other: General awake alert x3, resting comfortably in no acute distress. Neck supple no JVD. CVS regular rate rhythm, Respiratory lungs clear to auscultation, no respiratory distress, no wheeze, no rhonchi. Gastrointestinal abdomen soft, nontender, bowel sounds audible Extremities right lower extremity no edema. 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 Skin no rash Psych appropriate affect Objective Data Active Medications Atorvastatin Calcium (Atorvastatin Calcium 40 Mg Tablet) 40 mg PO DAILY [facility] Last Admin: 01/30/24 09:38 Dose: 40 mg Documented By: LANDON Fentanyl (Fentanyl 12 Mcg Patch.Td72) 12 mcg TRANSDERMA Q72H [facility] Last Admin: 01/28/24 14:25 Dose: 12 mcg Documented By: LANDON Finasteride (Finasteride 5 Mg Tablet) 5 mg PO DAILY [facility] Last Admin: 01/30/24 09:38 Dose: 5 mg Documented By: LANDON Glucose (Glucose Gel 15 Gm Gel..Gram.) 15 gm PO Q15M PRN; Protocol PRN Reason: per Hypoglycemia Standing Ord. Dextrose (D10) 250 mls @ 750 mls/hr IV Q15M PRN; Protocol PRN Reason: per Hypoglycemia Standing Ord. Last Infusion: 01/29/24 05:35 Dose: Infused Documented By: RIZWAN Insulin Glargine (Insulin Glargine,Hum.Rec.Anlog 100 Unit/Ml 10 Ml Vial) 35 unit SUBCUT DAILY [facility] Last Admin: 01/30/24 09:38 Dose: 35 unit Documented By: LANDON Insulin Human Lispro (Insulin Lispro 100 Unit/Ml 3 Ml Vial) 0 unit SUBCUT Q6H [facility]; Protocol Last Admin: 01/30/24 11:54 Dose: Not Given Documented By: LANDON Non-Admin Reason: No Insulin Coverage Ondansetron HCl (Ondansetron Hcl 4 Mg/2 Ml Vial) 4 mg IVPUSH Q4H PRN PRN Reason: Nausea and Vomiting Labs 01/30/24 08:25 01/30/24 08:25 Labs: Laboratory Results - last 24 hr 01/29/24 01/29/24 01/30/24 17:18 23:07 05:39 MCV MCH MCHC RDW Plt Count MPV Immature Gran % (Auto) Neut % (Auto) Lymph % (Auto) [place] % (Auto) Eos % (Auto) Baso % (Auto) Lymph # (Auto) [place] # (Auto) Eos # (Auto) Baso # (Auto) Abs Immat Gran (auto) Absolute Neuts (auto) Absolute Nucleated RBC Nucleated RBC % (auto) Anion Gap Estim Creat Clear Calc Estimated GFR POC Glucose 131 H 153 H 93 Random Glucose Calcium 01/30/24 01/30/24 08:25 11:25 MCV 92.2 MCH 31.4 MCHC 34.1 RDW 13.3 Plt Count 131 L MPV 9.8 Immature Gran % (Auto) 0.5 H Neut % (Auto) 59.8 Lymph % (Auto) 27.9 [place] % (Auto) 9.3 Eos % (Auto) 2.0 Baso % (Auto) 0.5 Lymph # (Auto) 2.3 [place] # (Auto) 0.8 Eos # (Auto) 0.2 Baso # (Auto) 0.0 Abs Immat Gran (auto) 0.04 H Absolute Neuts (auto) 4.8 Absolute Nucleated RBC 0.000 Nucleated RBC % (auto) 0.0 Anion Gap 12 Estim Creat Clear Calc 49.7 Estimated GFR 50 POC Glucose 114 Random Glucose 90 Calcium 9.5 D Assessment and Plan (1) Chronic atrial fibrillation, unspecified: Status: Acute (2) Cerebrovascular accident: Status: Acute (3) Acquired absence of left leg below knee: Status: Acute Plan 83-year-old male with history of chronic AFib, dementia, GERD, DM type 2, CKD stage III, essential hypertension, urinary retention, hyperlipidemia, BPH, atherosclerosis, PVD, left BKA admitted to ICU for observation post TNK administration. Acute left cerebellar hemisphere: CT head showed no acute infarct/bleed. CTA: no occlusion or stenosis.? Presented with what Left hemiparesis with facial droop and expressive aphasia. Strength 2/5 on the left side treated with TNK significant improvement in left upper extremity weakness and speech. MRI showed acute infarction along the superior medial left cerebellar hemisphere corresponding to hypodensity on the prior CT examination and susceptibility for focal hemorrhagic conversion, also chronic areas of infarctions were noted in left thalamus and bilateral cerebellar hemispheres. Repeat CT head?today showed mild amount of petechial hemorrhages at the site of the acute infarction in the left middle cerebellar peduncle and anterior superior left cerebellar hemisphere otherwise no gross hemorrhagic transformation was noted, Dr. Juan Antonio rizo to resume anticoagulation Cardiology consultation obtained in regard to concern for atrial fibrillation, no EKG showed atrial fibrillation during this admission, but since patient has history of chronic atrial fibrillation documented in old records and seems patient has embolic stroke will place patient on Eliquis 5 mg b.i.d. Hypertension: Will hold labetalol due to prolonged [place], and bradycardia follow BP and add Norvasc if noted to have elevated BP. 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 CKD stage III. Appears to be at baseline. Monitor renal indices and urine output.? DM, noted to have stable blood sugars continue Lantus and insulin sliding scale Prophylaxis: Eliquis In my clinical judgment patient need continued inpatient hospitalization for monitoring of atrial fibrillation, blood pressure and heart rate monitor and neuro logical status after TNK. Quality Stroke Does the patient have a stroke diagnosis?: Yes Reason for No Anti-thrombotic by Day Two: Drug treatment not indicated (Pending imaging) VTE Prior VTE?: No VTE Risk Level:: Medical - moderate - high VTE Device Contraindication: N/A - Device Ordered VTE Drug Contraindication: Treatment Not Indicated
[2024-01-30 18:21] LABS: Glucose, Whole Blood 221 mg/dL (60-115)
[2024-01-30] MEDS: Insulin Lispro 100 UNIT/ML 3 ML VIAL SUBCUT (18:22)
[2024-01-30 20:33] LABS: Glucose, Whole Blood 156 mg/dL (60-115)
[2024-01-30] MEDS: Apixaban 5 MG TABLET PO (21:47)
[2024-01-30 23:34] LABS: Glucose, Whole Blood 117 mg/dL (60-115)
[2024-01-31 03:24] VITALS: BP 165/72; PULSE 62; RESP 16; TEMP 36.4; O2SAT 96
[2024-01-31 05:57] LABS: Glucose, Whole Blood 102 mg/dL (60-115)
--- NOTE | 2024-01-31 09:12 | PC.NURSE ---
pt refusing all care - meds, vitals, food, assessment. md at bedside while pt was refusing and spoke with pt but pt continued to refuse only stating [facility]
--- NOTE | 2024-01-31 10:29 | P.DS_ITS ---
DS: Providers Provider Date of Service: 01/31/24 Date of admission: 01/28/24 03:50 Primary care physician: Basil Saul MD Consults: 01/28/24 03:50 Consult to Neurology Routine Consulting Provider: [facility] Reason for consultation: stroke Has provider been notified: Yes 01/28/24 05:49 Consult to Wound Care Routine Reason for consultation: Blanchable redness to BL buttocks 01/30/24 10:39 Consult to Cardiology Routine Consulting Provider: [facility] Cardi[facility] Services Reason for consultation: undetermined rythm/medication adjustment Has provider been notified: No DS: Diagnosis Discharge Diagnosis (1) Chronic atrial fibrillation, unspecified: Status: Acute (2) Cerebrovascular accident: Status: Acute (3) Acquired absence of left leg below knee: Status: Acute DS: Summary Hospital Course Hospital Course: History of presenting illness: Date of Service: 01/28/24 Attending physician on admission: Oneida Shanks Chief Complaint: Stroke Mr. Lobo is an 83-year-old male with medical history of chronic AFib, dementia, GERD,? DM type 2, CKD stage III, essential hypertension, urinary retention, hyperlipidemia, BPH, atherosclerosis, PVD, left BKA? who was sent from? [facility] facility when he was noted to have slurred speech with facial droop, left-side weakness and was slow to respond.? Last known well time 0040. [facility] reported that the patient vomited earlier in the evening at about 1830 and was given Zofran. On arrival to the ED, the patient's blood pressure 167/55, heart rate 73, O2 sat 97% on room air. Laboratory data unremarkable. Imaging: Head CT: no acute intracranial pathology. Head/Neck CTA: No occlusion or stenosis. Left cerebellar age indeterminate stro ke.? ED COURSE: TNK 23 mg was given at 0224 per neurology recommendation.? Zofran 4 mg. Hospital course: 83-year-old male with history of chronic AFib, dementia, GERD, DM type 2, CKD stage III, essential hypertension, urinary retention, hyperlipidemia, BPH, atherosclerosis, PVD, left BKA presented to [facility] with left facial droop, expressive aphasia and left hemiparesis, CT head showed no acute infarction or bleed, CTA showed no occlusion or stenosis, patient admitted to ICU for observation post TNK administration, patient was noted to have significant improvement in left upper extremity weakness and speech, MRI showed acute infarction along the superior medial left cerebellar hemisphere corresponding to hypodensity on the prior CT examination and susceptibility for focal hemorrhagic conversion, also chronic areas of infarctions were noted in left thalamus and bilateral cerebellar hemispheres, Repeat CT head?01/29 showed mild amount of petechial hemorrhages at the site of the acute infarction in the left middle cerebellar peduncle and anterior superior left cerebellar hemisphere otherwise no gross hemorrhagic transformation was noted, patient seen by Neurology and they recommended anticoagulation with history of chronic AFib therefore he was started on Eliquis 5 mg by mouth b.i.d. , patient was also evaluated by reconstructive surgeon Dr. Tiernye none of the EKGs in house showed atrial fibrillation but due to prior history of chronic atrial fibrillation it was suggested to place patient on Eliquis, patient was noted to have bradycardia therefore labetalol has been discontinued and patient placed on Norvasc for better blood pressure control, And patient started on Lipitor 40 mg at bedtime he was noted to have LDL of 83 and a total cholesterol of 118. Patient seen by speech therapy and they recommend ground mechanical altered diet due to edentulous state ,with thin liquids. CKD stage III. Appears to be at baseline. Monitor renal indices and urine output.? DM, noted to have stable blood sugars continue Lantus dose reduced to 30 units, from 46 units recommend to monitor blood sugar and adjust dose of Lantus as per blood sugar readings. Time Attestation Discharge Coordination Time (in mins): 40 Quality: Safe Use of Opioids Does Pt have an Active Cancer Diagnosis on the Problem List?: No Quality: Stroke Does the patient have a stroke diagnosis?: Yes Reason for No Anti-thrombotic at DC: N/A - Med Ordered Reason for No Anticoagulant at DC: N/A - Med Ordered Reason Not Initiating IV-Tpa: N/A - Med Ordered Reason for No Anti-thrombotic by Day Two: N/A - Med Ordered Reason for No Statin at DC: N/A - Med Ordered Physical Exam Vital Signs: Vital Signs: Last Vital Signs Temp 97.6 F 01/31/24 03:24 Pulse 62 01/31/24 03:24 Resp 16 01/31/24 03:24 BP 165/72 H 01/31/24 03:24 Pulse Ox 96 01/31/24 03:24 O2 Del Method Room Air 01/31/24 03:24 BMI result Body Mass Index 32.7 Const: Other: General awake alert x3, resting comfortably in no acute distress. Neck supple no JVD. CVS regular rate rhythm, Respiratory lungs clear to auscultation, no respiratory distress, no wheeze, no rhonchi. Gastrointestinal abdomen soft, nontender, bowel sounds audible Extremities right lower extremity no edema. 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 Skin ecchymosis left hand Psych appropriate affect DS: Data Data Completed and Pending Labs on day of discharge: Laboratory Results - last 24 hr 01/30/24 01/30/24 01/30/24 11:25 18:17 20:29 POC Glucose 114 221 H 156 H 01/30/24 01/31/24 23:28 05:49 POC Glucose 117 H 102 Discharge Plan Discharge Anticipated Discharge Date/Time: 01/31/24 09:27 Patient Disposition: Xfer SNF Discharge Diagnosis: Acute infarction left cerebellar hemisphere Referrals: [facility] [place] [Outside] - 1 Week Basil Saul MD [Primary Care Provider] - 1 Week Discharge Medications: New atorvastatin 40 mg Tablet 40 mg PO DAILY Qty: 30 0RF Eliquis 5 mg Tablet 5 mg PO BID Qty: 60 0RF amlodipine 5 mg Tablet 5 mg PO DAILY Qty: 30 0RF Protocol: Hold for SBP< HOLD for SBP < : 90 Continued terbinafine HCl 1 % Cream 1 appl TOPICAL BID PRN (Reason: groin rash) sennosides [senna] 8.6 mg Tablet 17.2 mg PO BEDTIME PRN (Reason: Constipation) acetaminophen 325 mg Tablet 650 mg PO Q4H PRN (Reason: Fever Or Pain) lidocaine 4 % Adhesive Patch,Medicated 2 patch TOPICAL DAILY Rx Instructions: ON AM; OFF HS ondansetron HCl 4 mg Tablet 4 mg PO Q4H PRN (Reason: Nausea And Vomiting) melatonin 3 mg Tablet 3 mg PO BEDTIME PRN (Reason: Insomnia) magnesium hydroxide [Milk of Magnesia] 400 mg/5 mL Suspension 30 ml PO BEDTIME PRN (Reason: Constipation) bisacodyl 10 mg Suppository 10 mg IA DAILY PRN (Reason: Constipation) Fleet Enema 19-7 gram/118 mL Enema 118 ml IA DAILY PRN (Reason: Constipation) doxazosin 4 mg Tablet 4 mg PO DAILY calcium carbonate 500 mg calcium (1,250 mg) Tablet,Chewable 1,000 mg PO Q4H PRN (Reason: Heartburn) fentanyl 12 mcg/hr Patch 72 Hour 1 patch TRANSDERMAL Q72H cholecalciferol (vitamin D3) [Vitamin D3] 25 mcg (1,000 unit) Tablet 25 mcg PO DAILY naloxone 4 mg/actuation Rosie,Non-Aerosol 4 mg INTRANASAL Q3M PRN (Reason: Opioid Overdose) Rx Instructions: spray 1 dose into ONE nostril; alternate nostrils w each dose until help arrives folic acid 1 mg tablet 1 mg PO DAILY polyethylene glycol 3350 17 gram powder in packet 17 g PO DAILY insulin lispro 100 unit/mL insulin pen 6 unit subcut DAILY@1200 PRN (Reason: Blood Glucose > 160) Rx Instructions: give if fingerstick is above 160 omeprazole 20 mg capsule,delayed release(DR/EC) 20 mg PO DAILY@0630 finasteride 5 mg tablet 5 mg PO DAILY 90 Days Qty: 90 1RF Changed insulin glargine 100 unit/mL solution 30 unit subcut DAILY Qty: 10 0RF Discontinued atorvastatin 10 mg tablet 10 mg PO BEDTIME labetalol 100 mg tablet 50 mg PO BID Discharge Orders: Discharge Order (Routine); Ordered 01/31/24 Ordered By: Fidencio Ledesma Diet: Diabetic diet Activity on Discharge: As tolerated Stand Alone Forms: Patient Portal Discharge page Print Language: Turkish Care Plan Goals: Acute cerebellar stroke recommend Eliquis 5 mg by mouth twice daily Take Norvasc 5 mg by mouth daily Labetalol discontinued due to prolonged IA and bradycardia Take Lipitor 40 mg at bedtime Follow ground mechanical diet and thin liquids as per speech recommendation follow-up with speech therapy Stable blood sugars dose of Lantus reduced to 30 units monitor blood sugar q.i.d. a.c. and adjust dose of insulin Health Concerns: Diabetes Chronic AFib Plan of Treatment: Follow-up with primary care physician Assessment: As above
--- NOTE | 2024-01-31 10:40 | MHC.CM.PN ---
Patient has been medically cleared for dc to home/'s Home today at 11:30 AM via [facility]. detailed message left for Son/HCP/Imtiaz at [phone], informing him of the dc plan and addressing the IMM.
--- NOTE | 2024-01-31 10:48 | MHC.CM.PN ---
dc summary has been successfully faxed to [facility] ([facility] ) at [phone].
== END 2024-01-31 11:35 | disposition skilled nursing facility (03) | DRG 63 ==
LOC: HO.ED 03:54 → HO.EDOVER 04:02 → HO.ICU 04:25 → HO.IMC 01-29 11:08
PROVIDERS: Hospitalist; Internal Medicine Critical Care Medicine; Admitting Provider Nurse Practitioner Family; Emergency Provider Internal Medicine; PCP Internal Medicine Medical Oncology; Visit Provider Hospitalist
DX: I63.89 Other cerebral infarction (principal); I25.10 Atherosclerotic heart disease of native coronary artery without angina pectoris; I48.0 Paroxysmal atrial fibrillation; R29.706 NIHSS score 6; F03.90 Unspecified dementia, unspecified severity, without behavioral disturbance, psychotic disturbance, mood disturbance, and anxiety; R47.81 Slurred speech; R29.810 Facial weakness; I12.9 Hypertensive chronic kidney disease with stage 1 through stage 4 chronic kidney disease, or unspecified chronic kidney disease; E11.51 Type 2 diabetes mellitus with diabetic peripheral angiopathy without gangrene; E88.810 Metabolic syndrome; N18.30 Chronic kidney disease, stage 3 unspecified; E11.22 Type 2 diabetes mellitus with diabetic chronic kidney disease; N40.1 Benign prostatic hyperplasia with lower urinary tract symptoms; R33.8 Other retention of urine; Z89.512 Acquired absence of left leg below knee; Z79.4 Long term (current) use of insulin; Z79.899 Other long term (current) drug therapy
CPT/HCPCS: 36415; 70450; 70496; 70498; 70551; 80048; 80061; 82550; 82947; 83036; 84484; 85025; 85610; 85730; 92526; 92610; 92950; 93005; 97163; 97166; 99285; J2405; J3101; Q9967

== ENCOUNTER → 2024-01-28 01:51 | Outpatient (BNV) | payer MEDICARE, SELFPAY | PROVIDERS: Admitting Provider Nurse Practitioner Family; Emergency Provider Internal Medicine; Visit Provider Internal Medicine | DX: R94.31 Abnormal electrocardiogram [ECG] [EKG] (principal) | CPT/HCPCS: 93010 ==

== ENCOUNTER 2024-01-28 03:50 | Outpatient (BNV) | payer MEDICARE, SELFPAY | END 2024-01-30 02:49 | PROVIDERS: Admitting Provider Nurse Practitioner Family; Emergency Provider Internal Medicine; PCP Internal Medicine Medical Oncology; Visit Provider Internal Medicine Cardiovascular Disease | DX: I44.0 Atrioventricular block, first degree (principal) | CPT/HCPCS: 93010 ==

== ENCOUNTER → 2024-01-28 03:50 | Outpatient (BNV) | payer MEDICARE, SELFPAY | PROVIDERS: Admitting Provider Nurse Practitioner Family; Emergency Provider Internal Medicine; PCP Internal Medicine Medical Oncology; Visit Provider Hospitalist | DX: I48.20 Chronic atrial fibrillation, unspecified (principal); I63.9 Cerebral infarction, unspecified; Z89.512 Acquired absence of left leg below knee | CPT/HCPCS: 99233; 99239 ==

== ENCOUNTER → 2024-01-28 03:50 | Outpatient (BNV) | payer MEDICARE, SELFPAY | PROVIDERS: Admitting Provider Nurse Practitioner Family; Emergency Provider Internal Medicine; Visit Provider Nurse Practitioner Family | DX: I63.9 Cerebral infarction, unspecified (principal) | CPT/HCPCS: 99291; 99499 ==

== ENCOUNTER → 2024-01-28 03:50 | Outpatient (BNV) | payer MEDICARE, SELFPAY | PROVIDERS: Admitting Provider Nurse Practitioner Family; Emergency Provider Internal Medicine; Visit Provider Internal Medicine Pulmonary Disease | DX: I63.9 Cerebral infarction, unspecified (principal); E11.22 Type 2 diabetes mellitus with diabetic chronic kidney disease; N18.30 Chronic kidney disease, stage 3 unspecified; I48.20 Chronic atrial fibrillation, unspecified; F03.90 Unspecified dementia, unspecified severity, without behavioral disturbance, psychotic disturbance, mood disturbance, and anxiety; I73.9 Peripheral vascular disease, unspecified; Z89.512 Acquired absence of left leg below knee | CPT/HCPCS: 99233 ==

== ENCOUNTER → 2024-01-28 03:50 | Outpatient (BNV) | payer MEDICARE, SELFPAY | PROVIDERS: Admitting Provider Nurse Practitioner Family; Emergency Provider Internal Medicine; PCP Internal Medicine Medical Oncology; Visit Provider Internal Medicine Cardiovascular Disease | DX: I73.9 Peripheral vascular disease, unspecified (principal); I63.9 Cerebral infarction, unspecified | CPT/HCPCS: 99223 ==

== ENCOUNTER → 2024-01-28 03:50 | Outpatient (BNV) | payer MEDICARE, SELFPAY | PROVIDERS: Admitting Provider Nurse Practitioner Family; Emergency Provider Internal Medicine; Visit Provider Psychiatry & Neurology Neurology | DX: I69.354 Hemiplegia and hemiparesis following cerebral infarction affecting left non-dominant side (principal); I69.328 Other speech and language deficits following cerebral infarction | CPT/HCPCS: 99222 ==

== ENCOUNTER 2024-03-26 06:19 | Outpatient (REF) | payer MEDICARE, SELFPAY ==
[2024-03-26 06:22] LABS: MANUAL DIFF FLAG NO
[2024-03-26 06:50] LABS: Basophils Percent Auto 0.4 % (0-2); Eosinophils Absolute Auto 0.2 X10*3/uL (0.0-0.4); Eosinophils Percent Auto 2.7 % (0-4); Hematocrit 29.6 % (42.0-52.0); Hemoglobin 10.1 g/dl (14.0-18.0); Imm Gran Abs Auto 0.05 X10*3/uL (0.00-0.03); Imm Gran Pct Auto 0.6 % (0.0-0.4); Lymphocytes Absolute Auto 2.2 X10*3/uL (1.2-4.9); Lymphocytes Percent Auto 28.6 % (20-40); Mean Corpuscular HGB Conc 34.1 g/dl (31.0-36.0); Mean Corpuscular Hemoglobin 31.5 pg (27.0-33.0); Mean Corpuscular Volume 92.2 fL (80.0-98.0); Mean Platelet Volume 10.6 fL (9.4-12.4); Monocytes Absolute Auto 0.6 X10*3/uL (0.1-1.2); Neutrophils Absolute Auto 4.7 x10*3/uL (2.0-8.3); Neutrophils Percent Auto 59.7 % (45-73); Platelet Count 143 X10*3/uL (160-400); Red Blood Count 3.21 X10*6/uL (4.60-5.80); Red Cell Distribution Width 13.4 % (11.0-16.0); White Blood Count 7.8 X10*3/uL (4.8-10.8)
[2024-03-26 07:04] LABS: Alanine Aminotransferase 19 U/L (0-40); Albumin Level 3.2 g/dL (3.5-5.0); Alkaline Phosphatase 122 U/L (39-117); Anion Gap 11 (12-20); Aspartate Amino Transferase 23 U/L (5-37); Bilirubin Direct 0.1 mg/dL (0.0-0.5); Bilirubin Total 0.4 mg/dL (0.0-1.0); Blood Urea Nitrogen 33 mg/dL (9-16); Calcium 9.7 mg/dL (8.4-10.2); Carbon Dioxide 24 mmol/L (22-29); Chloride 111 mmol/L (96-108); Cholesterol 101 mg/dL (<200); Estimated Glomerular Filt Rate 50; Glucose Random 72 mg/dL (60-115); HDL Cholesterol 23 mg/dL (>40); LDL Cholesterol Calculated 61 mg/dL (<100); Potassium 4.5 mmol/L (3.3-5.1); Sodium 141 mmol/L (135-145); Triglycerides 86 mg/dL (<150)
[2024-03-26 07:41] LABS: Folate 13.9 ng/mL (> or = 4.0)
[2024-03-26 13:00] LABS: Estimated Average Glucose 157 mg/dL; Hemoglobin A1C 149.5205 umol/L; Hemoglobin A1c % 7.1 % (<6.0)
== END 2024-03-26 06:20 | disposition home or self-care (01) ==
LOC: HO.HSH3E 06:19
PROVIDERS: Visit Provider Nurse Practitioner
DX: E11.9 Type 2 diabetes mellitus without complications (principal); E78.5 Hyperlipidemia, unspecified
CPT/HCPCS: 36415; 80048; 80061; 80076; 82746; 83036; 85025

== ENCOUNTER 2024-07-03 13:01 | Outpatient (AMB) | payer MEDICARE, SELFPAY ==
--- NOTE | 2024-07-03 13:04 | HO.VETSHOME ---
Intake Intake Visit Reasons: 8M w/ PVR prior Intake Note: Patient is present for PVR Allergies No Known Allergies Allergy (Verified 01/28/24 02:00) HPI HPI Comments History of Present Illness Details Yong is a pleasant male. He is a resident of [facility]. 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 Recommend suprapubic tube since has high variability with emptying Lower urinary tract symptoms Previously seen by Urology in [place] Prior urinary retention in PVR ranging from 250-600 cc Prior history of indwelling Ni catheter 2020 for urinary retention Current medications include doxazosin 2 mg and tamsulosin 0.8 mg PSA 01/15 5.2 Imaging - 06/17 bladder ultrasound incomplete bladder emptying [facility] Medical History Chronic atrial fibrillation, unspecified Unspecified dementia, unspecified severity, without behavioral disturbance, psychotic disturbance, mood disturbance, and anxiety Gastro-esophageal reflux disease without esophagitis Major depressive disorder, recurrent, mild Unspecified osteoarthritis, unspecified site Type 2 diabetes mellitus without complications Personal history of COVID-19 Type 2 diabetes mellitus with other circulatory complications Chronic kidney disease, stage 3 unspecified Essential (primary) hypertension Retention of urine, unspecified Hyperlipidemia, unspecified Benign prostatic hyperplasia without lower urinary tract symptoms Atherosclerotic heart disease of [place] coronary artery without angina pectoris 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 Acquired absence of left leg below knee Peripheral vascular disease, unspecified Surgical History Presence of aortocoronary bypass graft Social History Housing: Longterm Alcohol intake: never Patient Tobacco Use Status: Never used Tobacco service: Yes Review of Systems Const Denies chills and Denies fever(s) Card Reports no additional complaints and Denies syncope Resp Denies cough GI Denies abdominal pain and Denies heartburn Reports as per HPI and Denies change in libido Neuro Denies syncope Psych Denies change in libido Endo Denies change in libido Physical Exam Const General: cooperative, healthy appearing, comfortable and no acute distress Orientation/consciousness: patient oriented x3 HEENT Face and sinus: Yes normal facial exam Mouth: moist mucous membranes Neck Neck: Yes normal visual inspection, Yes full ROM and Yes trachea midline Chest Chest palpation & inspection: normal inspection of the chest Resp Effort & Inspection: normal respiratory effort, able to speak in complete sentences and no respiratory distress GI Inspection: Yes normal to inspection Back/Spine/Pelvis Cervical Spine: normal cervical lordosis Thoracic/Lumbar Spine: thoracic and lumbar spine normal to inspection Skin General skin exam: no rashes or lesions noted Neuro General: patient oriented x3, gait normal, tone normal and moves all extremities Extrem General: Yes normal to inspection and Yes capillary refill normal Assessment & Plan Assessment & Plan (1) Overflow incontinence: Code(s): N39.490 - Overflow incontinence (2) Autonomic dysfunction with type 2 diabetes mellitus: Code(s): E11.43 - Type 2 diabetes mellitus with diabetic autonomic (poly)neuropathy Plan Risks, benefits and alternatives to therapy were discussed. These include but are not limited to infection, bleeding, damage to local organs and tissues, need for further interventions. Anesthetic risks regarding cardiac arrhythmia, blood clots, and potential mortality were discussed. The patient understands the typical recovery time and the outpatient nature of the procedure. After consideration of these risks the patient gives full informed consent and they wish to move ahead with the procedure. - plan for suprapubic tube with cystoscopy Patient Instructions: Imaging studies, laboratory and physical exam results were discussed and reviewed in detail. No major barriers to patient understanding were identified. An opportunity to ask questions regarding the treatment plan was provided. All questions were answered. The patient expressed understanding and agreement with the above treatment plan. The patient is aware they should contact our office by phone for worsening of their current condition or the appearance of new urologic symptoms. Compliance is encouraged with any medications and followup testing that is ordered. It is a privilege to participate in the urologic care of your patient. If you have any questions or concerns regarding treatment for the above conditions, or other urologic issues, please do not hesitate to contact me. The office telephone contact is [phone]. This note is constructed using voice recognition software. While every effort has been made to ensure accuracy refrigerator assembler errors may have been included. 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
== END 2024-07-03 16:00 | disposition home or self-care (01) ==
LOC: HO.HUSV 13:01
PROVIDERS: PCP Internal Medicine Medical Oncology; Visit Provider Urology
DX: N39.490 Overflow incontinence (principal); E11.43 Type 2 diabetes mellitus with diabetic autonomic (poly)neuropathy
CPT/HCPCS: 99310

== ENCOUNTER 2024-08-12 12:25 | Day surgery (SDC) | payer MEDICARE, SELFPAY ==
--- NOTE | 2024-08-09 12:22 | P.CONAN_ITS ---
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 (Acute) Overflow incontinence (Acute) Cerebrovascular accident (Acute) Elevated PSA (Acute) Incomplete bladder emptying (Acute) Retention of urine, unspecified (Acute) Past Medical History Medical History Below knee amputation Chronic atrial fibrillation, unspecified Unspecified dementia, unspecified severity, without behavioral disturbance, psychotic disturbance, mood disturbance, and anxiety Gastro-esophageal reflux disease without esophagitis Major depressive disorder, recurrent, mild Unspecified osteoarthritis, unspecified site Type 2 diabetes mellitus without complications Personal history of COVID-19 Type 2 diabetes mellitus with other circulatory complications Chronic kidney disease, stage 3 unspecified Essential (primary) hypertension Retention of urine, unspecified Hyperlipidemia, unspecified Benign prostatic hyperplasia without lower urinary tract symptoms Atherosclerotic heart disease of [place] coronary artery without angina pectoris 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 If so, by whom?: No Are you DNR?: No Advance Directives: No Advance Directives Information Provided: Yes Nutrition Risks: No Nutritional Risk service: Yes Meds Allergies Allergy/AdvReac Type Severity Reaction Status Date / Time No Known Allergies Allergy Verified 08/12/24 14:22 Home Medications ?Medication ?Instructions ?Recorded ?Confirmed ?Last Taken ?Type folic acid 1 mg tablet 1 mg PO DAILY 06/01/23 08/08/24 01/27/24 History insulin lispro 100 unit/mL 6 unit subcut DAILY@1200 PRN Blood 0908/08/24 01/27/24 History subcutaneous pen Glucose > 160 polyethylene glycol 3350 17 gram 17 g PO DAILY 06/01/23 08/08/24 01/27/24 History oral powder packet omeprazole 20 mg capsule,delayed 20 mg PO DAILY@0630 06/02/23 08/08/24 01/27/24 History release acetaminophen 325 mg tablet 650 mg PO Q4H PRN Fever Or Pain 01/28/24 08/08/24 01/27/24 History bisacodyl 10 mg rectal suppository 10 mg RI DAILY PRN Constipation 01/28/24 08/08/24 Unknown History calcium carbonate 1,000 mg PO Q4H PRN Heartburn 01/28/24 08/08/24 Unknown History cholecalciferol (vitamin D3) 25 25 mcg PO DAILY 01/28/24 08/08/24 01/27/24 History mcg (1,000 unit) tablet (Vitamin D3) doxazosin 4 mg tablet 4 mg PO DAILY 01/28/24 08/08/24 01/27/24 History fentanyl 12 mcg/hr transdermal 1 patch transdermal Q72H 01/28/24 08/08/24 01/27/24 History patch melatonin 3 mg tablet 3 mg PO BEDTIME PRN Insomnia 01/28/24 08/08/24 Unknown History naloxone 4 mg/actuation nasal spray 4 mg intranasal Q3M PRN Opioid 01/28/24 08/08/24 Unknown History Overdose ondansetron HCl 4 mg tablet 4 mg PO BID PRN Nausea And Vomiting 01/28/24 08/08/24 01/27/24 History sennosides 8.6 mg tablet (senna) 17.2 mg PO BEDTIME PRN Constipation 01/28/24 08/08/24 Unknown History sodium phosphates 19 gram-7 118 ml RI DAILY PRN Constipation 01/28/24 08/08/24 Unknown History gram/118 mL enema (Fleet Enema) terbinafine HCl 1 % topical cream 1 appl topical BID PRN groin rash 01/28/24 08/08/24 Unknown History ascorbic acid (vitamin C) 500 mg 1,000 mg PO DAILY 08/08/24 08/08/24 Unknown History tablet (Vitamin C) atorvastatin 40 mg tablet 40 mg PO QPM 08/08/24 08/08/24 Unknown History gabapentin 100 mg capsule 100 mg PO BID 08/08/24 08/08/24 Unknown History guaifenesin 100 mg/5 mL oral liquid 200 mg PO Q4H PRN Cough 08/08/24 08/08/24 Unknown History insulin glargine 100 unit/mL 45 unit subcut DAILY 08/08/24 08/08/24 Unknown History subcutaneous solution loperamide 2 mg capsule 2 mg PO Q6H PRN Diarrhea 08/08/24 08/08/24 Unknown History methenamine hippurate 1 gram tablet 1 g PO BID 08/08/24 08/08/24 Unknown History mineral oil 30 ml PO DAILY PRN Skin Irritation 08/08/24 08/08/24 Unknown History Exam Height,Weight and Vital Signs: Weight 101.605 kg Pertinent Lab Results Pertinent Lab Results: Laboratory Tests 03/26/24 05:38 WBC 7.8 Hgb 10.1 L Hct 29.6 L Plt Count 143 L Sodium 141 Potassium 4.5 Chloride 111 H Carbon Dioxide 24 BUN 33 H Creatinine 1.36 Narrative Narrative: EKG 01/2024 Vent. Rate : 067 BPM Atrial Rate : 064 BPM P-R Int : 000 ms QRS Dur : 086 ms QT Int : 384 ms P-R-T Axes : 000 -02 027 degrees QTc Int : 405 ms Sinus rhythm with marked first degree AV block. Low voltage QRS Borderline ECG When compared with ECG of 28-JAN-2024 16:40, Sinus rhythm has replaced accelerated junctional rhythm Assessment and Plan Assessment Anesthesia Assessment: Chart Reviewed Documented by User: Anusha Benson MD 08/12/24 15:55 PMFSH Past Medical History Medical History Below knee amputation Chronic atrial fibrillation, unspecified Unspecified dementia, unspecified severity, without behavioral disturbance, psychotic disturbance, mood disturbance, and anxiety Gastro-esophageal reflux disease without esophagitis Major depressive disorder, recurrent, mild Unspecified osteoarthritis, unspecified site Type 2 diabetes mellitus without complications Personal history of COVID-19 Type 2 diabetes mellitus with other circulatory complications Chronic kidney disease, stage 3 unspecified Essential (primary) hypertension Retention of urine, unspecified Hyperlipidemia, unspecified Benign prostatic hyperplasia without lower urinary tract symptoms Atherosclerotic heart disease of [place] coronary artery without angina pectoris 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 If so, by whom?: No Are you DNR?: No Advance Directives: No Advance Directives Information Provided: Yes Nutrition Risks: No Nutritional Risk service: Yes Meds Allergies Allergy/AdvReac Type Severity Reaction Status Date / Time No Known Allergies Allergy Verified 08/12/24 14:22 Home Medications ?Medication ?Instructions ?Recorded ?Confirmed ?Last Taken ?Type folic acid 1 mg tablet 1 mg PO DAILY 06/01/23 08/08/24 01/27/24 History insulin lispro 100 unit/mL 6 unit subcut DAILY@1200 PRN Blood 06/01/23 08/08/24 01/27/24 History subcutaneous pen Glucose > 160 polyethylene glycol 3350 17 gram 17 g PO DAILY 06/01/23 08/08/24 01/27/24 History oral powder packet omeprazole 20 mg capsule,delayed 20 mg PO DAILY@0630 06/02/23 08/08/24 01/27/24 History release acetaminophen 325 mg tablet 650 mg PO Q4H PRN Fever Or Pain 01/28/24 08/08/24 01/27/24 History bisacodyl 10 mg rectal suppository 10 mg RI DAILY PRN Constipation 01/28/24 08/08/24 Unknown History calcium carbonate 1,000 mg PO Q4H PRN Heartburn 01/28/24 08/08/24 Unknown History cholecalciferol (vitamin D3) 25 25 mcg PO DAILY 01/28/24 08/08/2424 History mcg (1,000 unit) tablet (Vitamin D3) doxazosin 4 mg tablet 4 mg PO DAILY 01/28/24 08/08/24 01/27/24 History fentanyl 12 mcg/hr transdermal 1 patch transdermal Q72H 01/28/24 08/08/24 01/27/24 History patch melatonin 3 mg tablet 3 mg PO BEDTIME PRN Insomnia 01/28/24 08/08/24 Unknown History naloxone 4 mg/actuation nasal spray 4 mg intranasal Q3M PRN Opioid 01/28/24 08/08/24 Unknown History Overdose ondansetron HCl 4 mg tablet 4 mg PO BID PRN Nausea And Vomiting 01/28/24 08/08/24 01/27/24 History sennosides 8.6 mg tablet (senna) 17.2 mg PO BEDTIME PRN Constipation 01/28/24 08/08/24 Unknown History sodium phosphates 19 gram-7 118 ml RI DAILY PRN Constipation 01/28/24 08/08/24 Unknown History gram/118 mL enema (Fleet Enema) terbinafine HCl 1 % topical cream 1 appl topical BID PRN groin rash 01/28/24 08/08/24 Unknown History ascorbic acid (vitamin C) 500 mg 1,000 mg PO DAILY 08/08/24 08/08/24 Unknown History tablet (Vitamin C) atorvastatin 40 mg tablet 40 mg PO QPM 08/08/24 08/08/24 Unknown History gabapentin 100 mg capsule 100 mg PO BID 08/08/24 08/08/24 Unknown History guaifenesin 100 mg/5 mL oral liquid 200 mg PO Q4H PRN Cough 08/08/24 08/08/24 Unknown History insulin glargine 100 unit/mL 45 unit subcut DAILY 08/08/24 08/08/24 Unknown History subcutaneous solution loperamide 2 mg capsule 2 mg PO Q6H PRN Diarrhea 08/08/24 08/08/24 Unknown History methenamine hippurate 1 gram tablet 1 g PO BID 08/08/24 08/08/24 Unknown History mineral oil 30 ml PO DAILY PRN Skin Irritation 08/08/24 08/08/24 Unknown History Exam Airway Mallampati Class: III TM Dist: >3cm Neck ROM: Full Denture: Upper Assessment and Plan Assessment Anesthesia Assessment: Anesthesia Plan Discussed Final Anesthetic Review Family History of Problems with Anesthesia: No History of Problems with Anesthesia: No NPO: Yes Final Preanesthetic Review: No Changes in Pt Med Stat, Meds/Allgs Chart Reviewed, Consent Obtained/Reviewed and Anes Risks/Benef Reviewed Patient Risk: Intermediate Procedure Risk: Low Anesthetic Plan Anesthetic Plan: TIVA Disposition: Standard PACU
[2024-08-12 14:27] LABS: Glucose, Whole Blood 122 mg/dL (60-115)
[2024-08-12 14:32] VITALS: BP 141/61; PULSE 73; RESP 16; TEMP 37.2; O2SAT 98; BMI 37.3
--- NOTE | 2024-08-12 15:33 | PC.NURSE ---
[facility] right chest. Patch clean, dry, and intact. OR nurse and anesthesia Dr. Valenzuela aware.
--- NOTE | 2024-08-12 15:38 | MHC.SHP ---
Pre-Procedural Eval Section A - 24 Hr Update-Section A only Date of Service: 08/12/24 The patient is an INPATIENT: No Changes since office visit: No Cold of Flu in the past 2 weeks, No New Medical Problems, No Changes in Medication and No Patient answered all questions The patient has been examined within 24 hours of the surgical procedure. The History & Physical has been completed within 30 days and I have reviewed it.: Yes Section B - Complete if H&P > 30 days Chief Complaint: Overflow incontinence Details of Present Illness: Cystoscopy, suprapubic tube placement Allergies: Allergies Allergy/AdvReac Type Severity Reaction Status Date / Time No Known Allergies Allergy Verified 08/12/24 14:22 Plan I have reviewed the history and physical and performed a pertinent physical examination on my patient. No changes have occurred unless specified. Time Spent With Patient Time: Total time managing care of this patient today ____ minutes.
[2024-08-12] MEDS: Lactated Ringers 1,000 ML 100 ML IVCONT (15:39)
--- NOTE | 2024-08-12 16:26 | W.PM.OPN ---
Operative Note Operative Note Date of Service: 08/12/24 Narrative: PreOperative Diagnosis:?neurogenic bladder Post Operative Diagnosis:?neurogenic bladder Procedure:? 1. Cystoscopy 2. Suprapubic tube placement Surgeon: Dr aMurice Lanza Anesthesia:?Sedation plus local Indications for procedure: Ureteric and bladder with indwelling Turcios catheter Procedure: After informed consent was verified the patient was brought to the operating room and placed in a supine position.? Anesthesia was administered per protocol. The patient was placed in a modified dorsal lithotomy position and prepped and draped in a sterile fashion. A safety pause was performed confirming patient identity, procedure and antibiotics. A 22 Hong Konger cystoscope was inserted per urethra. Bladder was examined in its entirety. No abnormalities seen. Air bubble was located at the dome of the bladder. A finder needle was inserted 2 fingerbreaths above the symphysis pubis on the abdomen into the bladder.? The needle was visualized in the bladder via cystoscopy. Local anesthetic was infiltrated subcutaneously around the needle introduction site. A small, 1cm horizontal incision was made.? A trocar introducer was advanced through the abdominal wall into the bladder under visualization. The obturator was removed and a 16 Fr turcios catheter placed. 7cc was used to inflate the balloon. The external portion of the trocar was removed. Dressing was placed, the bladder was emptied, and a drainage bag was attached. The patient tolerated the procedure and was transferred in stable condition to the recovery area. Suprapubic tube will be changed in 1 month with a follow-up office visit.
[2024-08-12 16:36] VITALS: BP 133/47; PULSE 78; RESP 18; TEMP 36.7; O2SAT 99
[2024-08-12 16:51] VITALS: BP 144/57; PULSE 78; RESP 16; TEMP 36.4; O2SAT 96
== END 2024-08-12 17:17 | disposition home or self-care (01) ==
PROVIDERS: PCP Nurse Practitioner; Visit Provider Urology
PROC: 0TJB8ZZ Inspection of Bladder, Via Natural or Artificial Opening Endoscopic (ICD-10-PCS; CPT 52000; principal; 2024-08-12 14:30)
DX: N31.9 Neuromuscular dysfunction of bladder, unspecified (principal); N39.490 Overflow incontinence; N40.1 Benign prostatic hyperplasia with lower urinary tract symptoms; I12.9 Hypertensive chronic kidney disease with stage 1 through stage 4 chronic kidney disease, or unspecified chronic kidney disease; E11.22 Type 2 diabetes mellitus with diabetic chronic kidney disease; E11.43 Type 2 diabetes mellitus with diabetic autonomic (poly)neuropathy; N18.30 Chronic kidney disease, stage 3 unspecified; Z79.4 Long term (current) use of insulin; E78.5 Hyperlipidemia, unspecified; I48.20 Chronic atrial fibrillation, unspecified; Z79.01 Long term (current) use of anticoagulants; F03.90 Unspecified dementia, unspecified severity, without behavioral disturbance, psychotic disturbance, mood disturbance, and anxiety; I25.10 Atherosclerotic heart disease of native coronary artery without angina pectoris; Z95.1 Presence of aortocoronary bypass graft; F33.0 Major depressive disorder, recurrent, mild; K21.9 Gastro-esophageal reflux disease without esophagitis; Z89.512 Acquired absence of left leg below knee
CPT/HCPCS: 51102; 82947; J1956; J2003; J2704; J2795; J3010

== ENCOUNTER → 2024-08-12 12:25 | Outpatient (BNV) | payer MEDICARE, SELFPAY | PROVIDERS: PCP Nurse Practitioner; Visit Provider Urology | DX: N31.9 Neuromuscular dysfunction of bladder, unspecified (principal) | CPT/HCPCS: 51102 ==

== ENCOUNTER → 2024-09-04 13:08 | Outpatient (AMB) | payer MEDICARE, SELFPAY ==
--- NOTE | 2024-09-04 13:09 | HO.VETSHOME ---
Intake Intake Visit Reasons: SPT change (first) Intake Note: Patient presents today at [facility] for: SPT change Explosives Engineer Required: No Allergies No Known Allergies Allergy (Verified 09/04/24 18:32) Medication List - Last Reconciled 09/04/24 by BETHANY Zuniga acetaminophen 650 mg PO Q4H PRN amlodipine 5 mg See Protocol PO DAILY apixaban (Eliquis) 5 mg PO BID ascorbic acid (vitamin C) (Vitamin C) 1,000 mg PO DAILY atorvastatin 40 mg PO QPM bisacodyl 10 mg [place] DAILY PRN calcium carbonate 1,000 mg PO Q4H PRN cholecalciferol (vitamin D3) (Vitamin D3) 25 mcg PO DAILY doxazosin 4 mg PO DAILY fentanyl 12 mcg/hr 1 patch transdermal Q72H finasteride 5 mg PO DAILY 90 days folic acid 1 mg PO DAILY gabapentin 100 mg PO BID guaifenesin 200 mg PO Q4H PRN insulin glargine 45 units subcut DAILY insulin lispro 6 units subcut DAILY@1200 PRN loperamide 2 mg PO Q6H PRN melatonin 3 mg PO BEDTIME PRN methenamine hippurate 1 g PO BID mineral oil 30 mL PO DAILY PRN naloxone 4 mg/actuation 4 mg intranasal Q3M PRN omeprazole 20 mg PO DAILY@0630 ondansetron HCl 4 mg PO BID PRN polyethylene glycol 3350 17 grams PO DAILY sennosides (senna) 17.2 mg PO BEDTIME PRN sodium phosphates 19-7 gram/118 mL (Fleet Enema) 118 mL [place] DAILY PRN terbinafine HCl 1% 1 appl topical BID PRN HPI HPI Comments History of Present Illness Details Ed is a pleasant 84-year-old male patient of Dr. Rodriguez. He is a resident of [facility]. He has a past medical history of [id number] left amputee, chronic AFib, dementia, GERD, depression, type 2 diabetes, chronic kidney disease, hypertension, hyperlipidemia, atherosclerotic heart disease, peripheral vascular disease, and overflow incontinence. He is being followed up on today for his history of lower urinary tract symptoms with incomplete bladder emptying and elevated PSA. Of note, patient underwent cystoscopy with suprapubic tube placement with Dr. Lanza 08/12. Unable to upsize catheter at bedside today to a 18 Austrian catheter as I was unable to therefore 14 pakistani catheter was placed without difficulty. Suprapubic tube site appears to be healing well. No drainage or increased redness noted. When asked he otherwise denies any bothersome urinary issues. He reports his main concern his his ongoing back pain he experiences. We discussed following up in one month to upsize suprapubic tube catheter. He is agreeable. Discussed plan of care with nursing. 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 Recommend suprapubic tube since has high variability with emptying Lower urinary tract symptoms Previously seen by Urology in [place] Prior urinary retention in PVR ranging from 250-600 cc Prior history of indwelling Ni catheter 2020 for urinary retention Current medications include doxazosin 2 mg and tamsulosin 0.8 mg Imaging - 06/17 bladder ultrasound incomplete bladder emptying [facility] Medical History Below knee amputation Chronic atrial fibrillation, unspecified Unspecified dementia, unspecified severity, without behavioral disturbance, psychotic disturbance, mood disturbance, and anxiety Gastro-esophageal reflux disease without esophagitis Major depressive disorder, recurrent, mild Unspecified osteoarthritis, unspecified site Type 2 diabetes mellitus without complications Personal history of COVID-19 Type 2 diabetes mellitus with other circulatory complications Chronic kidney disease, stage 3 unspecified Essential (primary) hypertension Retention of urine, unspecified Hyperlipidemia, unspecified Benign prostatic hyperplasia without lower urinary tract symptoms Atherosclerotic heart disease of [place] coronary artery without angina pectoris long-term (current) use of insulin Acquired absence of left leg below knee Peripheral vascular disease, unspecified Surgical History Presence of aortocoronary bypass graft Social History Housing: Alf Alcohol intake: never Patient Tobacco Use Status: Never used Tobacco service: Yes Review of Systems Eyes Reports no additional complaints ENT Reports no additional complaints Card Reports as per HPI Resp Reports as per HPI GI Reports as per HPI Reports as per HPI Musc Reports as per HPI Neuro Reports as per HPI Psych Reports as per [facility] Endo Reports as per HPI Physical Exam Const General: cooperative, comfortable, no acute distress, well developed, alert and awake Nutritional Appearance: overweight Orientation/consciousness: oriented to person Limitations: other limitations (Prosthesis) HEENT Head: Yes normal to inspection Eyes General: appearance normal, both eyes and all related structures Neck Neck: Yes normal visual inspection Chest Chest palpation & inspection: normal inspection of the chest Resp Effort & Inspection: normal respiratory effort and able to speak in complete sentences Cardio Rate: regular rate GI Inspection: Yes normal to inspection Other: Suprapubic tube site appears to be healing well; as per HPI Back/Spine/Pelvis Other: Chronic back pain Skin General skin exam: no rashes or lesions noted Neuro General: oriented to person Extrem Other: As per HPI Psych Appearance: grossly normal and well kempt Speech and movement: Clear speech present Affect: normal affect Attitude: cooperative Thought content: Normal thought content present Insight: Fair insight present (Psych) Judgement: Fair judgement present (Psych) Assessment & Plan Assessment & Plan (1) Overflow incontinence: Code(s): N39.490 - Overflow incontinence (2) Elevated PSA: Code(s): R97.20 - Elevated prostate specific antigen [PSA] (3) Incomplete bladder emptying: Code(s): R33.9 - Retention of urine, unspecified (4) Retention of urine, unspecified: Code(s): R33.9 - Retention of urine, unspecified Plan Previous 16 Austrian suprapubic tube catheter was removed attempted to place 18 Austrian catheter however unable to therefore reinserted 14 Austrian catheter with no difficulty. SPT site appears to be healing well. Continue urological medications as prescribed. Will attempt to upsize catheter in 1 month. Will need to reassess PSA in the near future. Continue suprapubic tube catheter care as ordered. Follow-up in 1 month; or sooner with any issues, concerns, and or questions. Patient Instructions: The patient had an opportunity to ask questions regarding the treatment plan. All questions were answered. Physical exam, labs, and imaging were discussed and reviewed in detail. As well as risks, benefits, and discussion of treatment choices. No major barriers to understanding were identified. The patient expressed understanding and agreement with the above treatment plan. The patient was made aware they should contact our office by phone for worsening of their current condition, the appearance of new symptoms, or with any questions or concerns. Compliance is encouraged with any medications and follow up testing that is ordered. It is a privilege to be allowed the opportunity to participate in? your urological care.? Again, if you have any questions or concerns If you have any questions or concerns please do not hesitate to contact me. The office is [phone]. This note is constructed using voice recognition software. While every effort has been made to ensure accuracy general maintenance mechanic errors may have been included. Yours sincerely, ISAURO Zuniga-TOMAS Coding Level of Care Code 60258-Ypdf Fac sub, mod Diagnoses Overflow incontinence N39.490 Elevated PSA R97.20 Incomplete bladder emptying R33.9 Retention of urine, unspecified R33.9 Time Spent (min) 40
== END ==
LOC: HO.HUSV 13:08
PROVIDERS: PCP Nurse Practitioner; Visit Provider Nurse Practitioner Family
DX: N39.490 Overflow incontinence (principal); R97.20 Elevated prostate specific antigen [PSA]; R33.9 Retention of urine, unspecified
CPT/HCPCS: 99309

== ENCOUNTER 2024-10-03 14:49 | Outpatient (AMB) | payer MEDICARE, SELFPAY ==
--- NOTE | 2024-10-03 15:56 | A.OFFVIS_ITS ---
Intake Intake Visit Reasons: SPT change- upsize from 14 Allergies No Known Allergies Allergy (Verified 09/04/24 18:32) HPI HPI Comments History of Present Illness Details Ed is a pleasant 84-year-old male patient of Dr. Rodriguez. He is a resident of [facility]. He has a past medical history of [id number] left amputee, chronic AFib, dementia, GERD, depression, type 2 diabetes, chronic kidney disease, hypertension, hyperlipidemia, atherosclerotic heart disease, peripheral vascular disease, and overflow incontinence. He is being followed up on today for his history of lower urinary tract symptoms with incomplete bladder emptying and elevated PSA. Of note, patient underwent cystoscopy with suprapubic tube placement with Dr. Lanza 08/12. Catheter upsized to 18 Luxembourger today Note catheter requires 12-14 cm of catheter to be advanced into abdominal wall to reach bladder Continue to up size to 20 Luxembourger on next visit May stop doxazosin and finasteride Continue with vitamin-C and methenamine PREVIOUS OFFICE NOTE: PSA 06/17 2.7, 01/15 5.3 free PSA 0.8 Lower urinary tract symptoms Previously seen by Urology in [place] Prior urinary retention in PVR ranging from 250-600 cc Prior history of indwelling Ni catheter 2020 for urinary retention Prior medications include doxazosin 2 mg and tamsulosin 0.8 mg Imaging - 06/17 bladder ultrasound incomplete bladder emptying [facility] Medical History Below knee amputation Chronic atrial fibrillation, unspecified Unspecified dementia, unspecified severity, without behavioral disturbance, psychotic disturbance, mood disturbance, and anxiety Gastro-esophageal reflux disease without esophagitis Major depressive disorder, recurrent, mild Unspecified osteoarthritis, unspecified site Type 2 diabetes mellitus without complications Personal history of COVID-19 Type 2 diabetes mellitus with other circulatory complications Chronic kidney disease, stage 3 unspecified Essential (primary) hypertension Retention of urine, unspecified Hyperlipidemia, unspecified Benign prostatic hyperplasia without lower urinary tract symptoms Atherosclerotic heart disease of [place] coronary artery without angina pectoris [facility] (current) use of insulin Acquired absence of left leg below knee Peripheral vascular disease, unspecified Surgical History Presence of aortocoronary bypass graft Social History (Reviewed 07/03/24 @ 13:04 by WILIAM Jaime Housing: Halfway Alcohol intake: never Patient Tobacco Use Status: Never used Tobacco service: Yes Review of Systems Const Reports as per HPI and Reports no additional complaints Card Reports as per HPI and Reports no additional complaints Resp Reports as per HPI and Reports no additional complaints GI Reports as per HPI and Reports no additional complaints Reports as per HPI Musc Reports no additional complaints and Reports as per HPI Neuro Reports no additional complaints and Reports as per HPI Physical Exam Const General: cooperative, healthy appearing, comfortable and no acute distress Orientation/consciousness: patient oriented x3 HEENT Face and sinus: Yes normal facial exam Mouth: moist mucous membranes Neck Neck: Yes normal visual inspection, Yes full ROM and Yes trachea midline Chest Chest palpation & inspection: normal inspection of the chest Resp Effort & Inspection: normal respiratory effort, able to speak in complete sentences and no respiratory distress GI Inspection: Yes normal to inspection Back/Spine/Pelvis Cervical Spine: normal cervical lordosis Thoracic/Lumbar Spine: thoracic and lumbar spine normal to inspection Skin General skin exam: no rashes or lesions noted Neuro General: patient oriented x3, tone normal and moves all extremities Extrem General: Yes normal to inspection and Yes capillary refill normal Assessment & Plan Assessment & Plan (1) Incomplete bladder emptying: Code(s): R33.9 - Retention of urine, unspecified (2) Overflow incontinence: Code(s): N39.490 - Overflow incontinence Plan 4 week follow-up catheter change urology Patient Instructions: Imaging studies, laboratory and physical exam results were discussed and reviewed in detail. No major barriers to patient understanding were identified. An opportunity to ask questions regarding the treatment plan was provided. All questions were answered. The patient expressed understanding and agreement with the above treatment plan. The patient is aware they should contact our office by phone for worsening of their current condition or the appearance of new urologic symptoms. Compliance is encouraged with any medications and followup testing that is ordered. It is a privilege to participate in the urologic care of your patient. If you have any questions or concerns regarding treatment for the above conditions, or other urologic issues, please do not hesitate to contact me. The office telephone contact is [phone]. This note is constructed using voice recognition software. While every effort has been made to ensure accuracy malt specifications control assistant errors may have been included. Yours sincerely, Dr Maurice Lanza MD, [facility] Providers of Expert, Compassionate Care for the Genitourinary System Coding Level of Care Code 74518-Xpdy Fac sub, mod Diagnoses Incomplete bladder emptying R33.9 Overflow incontinence N39.490
== END 2024-10-03 16:03 ==
LOC: HO.HUSV 14:49
PROVIDERS: PCP Nurse Practitioner; Visit Provider Urology
DX: R33.9 Retention of urine, unspecified (principal); N39.490 Overflow incontinence
CPT/HCPCS: 99309

== ENCOUNTER 2024-10-24 12:10 | Outpatient (REF) | payer MEDICARE, SELFPAY ==
[2024-10-25 09:34] LABS: Adenovirus F 40/41 Not Detected (Not Detect.); Astrovirus Not Detected (Not Detect.); Campylobacter Not Detected (Not Detect.); Cryptosporidium Not Detected (Not Detect.); Cyclospora cayetanensis Not Detected (Not Detect.); E. coli EAEC Not Detected (Not Detect.); E. coli EPEC Not Detected (Not Detect.); E. coli ETEC Not Detected (Not Detect.); E. coli STEC Not Detected (Not Detect.); Entamoeba histolytica Not Detected (Not Detect.); Giardia lamblia Not Detected (Not Detect.); Plesiomonas shigelloides Not Detected (Not Detect.); Rotavirus A Not Detected (Not Detect.); Salmonella Not Detected (Not Detect.); Sapovirus Not Detected (Not Detect.); Shigella sp./EIEC Not Detected (Not Detect.); Vibrio Not Detected (Not Detect.); Vibrio Cholerae Not Detected (Not Detect.); Yersinia enterocolitica Not Detected (Not Detect.)
[2024-10-27 13:06] LABS: Norovirus Stool PCR DETECTED
== END 2024-10-24 12:11 | disposition home or self-care (01) ==
LOC: HO.HSH3E 12:10
PROVIDERS: Visit Provider Nurse Practitioner
DX: R19.7 Diarrhea, unspecified (principal)
CPT/HCPCS: 87507

== ENCOUNTER 2024-10-31 06:14 | Outpatient (REF) | payer MEDICARE, SELFPAY ==
[2024-10-31 06:17] LABS: MANUAL DIFF FLAG NO
[2024-10-31 06:44] LABS: Basophils Percent Auto 0.4 % (0-2); Eosinophils Absolute Auto 0.3 X10*3/uL (0.0-0.4); Eosinophils Percent Auto 2.8 % (0-4); Hematocrit 31.8 % (42.0-52.0); Hemoglobin 10.6 g/dl (14.0-18.0); Imm Gran Abs Auto 0.09 X10*3/uL (0.00-0.03); Imm Gran Pct Auto 0.8 % (0.0-0.4); Lymphocytes Percent Auto 19.3 % (20-40); Mean Corpuscular HGB Conc 33.3 g/dl (31.0-36.0); Mean Corpuscular Hemoglobin 30.7 pg (27.0-33.0); Mean Corpuscular Volume 92.2 fL (80.0-98.0); Mean Platelet Volume 11.1 fL (9.4-12.4); Monocytes Absolute Auto 0.8 X10*3/uL (0.1-1.2); Monocytes Percent Auto 7.2 % (2-11); Neutrophils Absolute Auto 7.4 x10*3/uL (2.0-8.3); Neutrophils Percent Auto 69.5 % (45-73); Platelet Count 146 X10*3/uL (160-400); Red Blood Count 3.45 X10*6/uL (4.60-5.80); Red Cell Distribution Width 13.7 % (11.0-16.0); White Blood Count 10.6 X10*3/uL (4.8-10.8)
[2024-10-31 07:02] LABS: Alanine Aminotransferase 33 U/L (0-40); Albumin Level 3.1 g/dL (3.5-5.0); Alkaline Phosphatase 132 U/L (39-117); Anion Gap 9 (12-20); Aspartate Amino Transferase 32 U/L (5-37); Bilirubin Total 0.3 mg/dL (0.0-1.0); Blood Urea Nitrogen 24 mg/dL (9-16); Calcium 9.2 mg/dL (8.4-10.2); Carbon Dioxide 20 mmol/L (22-29); Chloride 112 mmol/L (96-108); Estimated Glomerular Filt Rate 59; Glucose Fasting 259 mg/dL (60-99); Iron 30 mcg/dL (45-160); Percent Iron Saturation 19 % (15-50); Potassium 4.2 mmol/L (3.3-5.1); Sodium 137 mmol/L (135-145); Total Iron Binding Capacity 156 mcg/dL (228-428); Total Protein 6.1 g/dL (6.5-8.0); Unsaturated Iron Binding 126 ug/dL
[2024-10-31 07:22] LABS: Ferritin 197 ng/mL (20-250)
[2024-10-31 07:25] LABS: Estimated Average Glucose 154 mg/dL; Hemoglobin A1C 152.7782 umol/L; Total Hemoglobin (HGBA1C) 2867.6145 umol/L
[2024-10-31 07:31] LABS: Folate 15.3 ng/mL (> or = 4.0); Vitamin B12 527 pg/mL (200-900)
== END 2024-10-31 06:15 | disposition home or self-care (01) ==
LOC: HO.HSH3E 06:14
PROVIDERS: Visit Provider Nurse Practitioner
DX: E11.9 Type 2 diabetes mellitus without complications (principal); D64.9 Anemia, unspecified; R53.83 Other fatigue
CPT/HCPCS: 36415; 80053; 82607; 82728; 82746; 83036; 83540; 85025

== ENCOUNTER 2024-11-05 10:30 | Outpatient (AMB) | payer MEDICARE, SELFPAY ==
--- NOTE | 2024-10-30 08:28 | HO.VETSHOME ---
Intake Intake Visit Reasons: SPT change- per Dr. Lanza Allergies No Known Allergies Allergy (Verified 09/04/24 18:32) Medication List - Last Reconciled 10/30/24 by Jese Stratton MD acetaminophen 650 mg PO Q4H PRN amlodipine 5 mg See Protocol PO DAILY apixaban (Eliquis) 5 mg PO BID ascorbic acid (vitamin C) (Vitamin C) 1,000 mg PO DAILY atorvastatin 40 mg PO QPM bisacodyl 10 mg [place] DAILY PRN calcium carbonate 1,000 mg PO Q4H PRN cholecalciferol (vitamin D3) (Vitamin D3) 25 mcg PO DAILY fentanyl 12 mcg/hr 1 patch transdermal Q72H folic acid 1 mg PO DAILY gabapentin 100 mg PO BID guaifenesin 200 mg PO Q4H PRN insulin glargine 45 units subcut DAILY insulin lispro 6 units subcut DAILY@1200 PRN loperamide 2 mg PO Q6H PRN melatonin 3 mg PO BEDTIME PRN methenamine hippurate 1 g PO BID mineral oil 30 mL PO DAILY PRN naloxone 4 mg/actuation 4 mg intranasal Q3M PRN omeprazole 20 mg PO DAILY@0630 ondansetron HCl 4 mg PO BID PRN polyethylene glycol 3350 17 grams PO DAILY sennosides (senna) 17.2 mg PO BEDTIME PRN sodium phosphates 19-7 gram/118 mL (Fleet Enema) 118 mL [place] DAILY PRN terbinafine HCl 1% 1 appl topical BID PRN HPI HPI Comments History of Present Illness Details Ed is a pleasant 84-year-old male patient of Dr. Rodriguez. He is a resident of [facility]. He has a past medical history of [id number] left amputee, chronic AFib, dementia, GERD, depression, type 2 diabetes, chronic kidney disease, hypertension, hyperlipidemia, atherosclerotic heart disease, peripheral vascular disease, and overflow incontinence. He is being followed up on today for his history of lower urinary tract symptoms with incomplete bladder emptying and elevated PSA. Of note, patient underwent cystoscopy with suprapubic tube placement with Dr. Lanza 08/12. 10/30/24- Catheter upsized ot 20 wallisian today 10 mL in balloon by Dr. Cheema catheter to gravity drainage. proscar and doxazosin were discontinued on 10/03/[address] Lanza. Cont Vit C and Methanamine. 10/03/24--Catheter upsized to 18 Cuban today Note catheter requires 12-14 cm of catheter to be advanced into abdominal wall to reach bladder Continue to up size to 20 Cuban on next visit. May stop doxazosin and finasteride. Continue with vitamin-C and methenamine PSA 06/17 2.7, 01/15 5.3 free PSA 0.8 Lower urinary tract symptoms Previously seen by Urology in [place] Prior urinary retention in PVR ranging from 250-600 cc Prior history of indwelling Ni catheter 2020 for urinary retention Prior medications include doxazosin 2 mg and tamsulosin 0.8 mg Imaging - 06/17 bladder ultrasound incomplete bladder emptying [facility] Medical History Below knee amputation Chronic atrial fibrillation, unspecified Unspecified dementia, unspecified severity, without behavioral disturbance, psychotic disturbance, mood disturbance, and anxiety Gastro-esophageal reflux disease without esophagitis Major depressive disorder, recurrent, mild Unspecified osteoarthritis, unspecified site Type 2 diabetes mellitus without complications Personal history of COVID-19 Type 2 diabetes mellitus with other circulatory complications Chronic kidney disease, stage 3 unspecified Essential (primary) hypertension Retention of urine, unspecified Hyperlipidemia, unspecified Benign prostatic hyperplasia without lower urinary tract symptoms Atherosclerotic heart disease of [place] coronary artery without angina pectoris ad terminal makeup operator (current) use of insulin Acquired absence of left leg below knee Peripheral vascular disease, unspecified Surgical History Presence of aortocoronary bypass graft Social History Housing: [facility] Alcohol intake: never Patient Tobacco Use Status: Never used Tobacco service: Yes Review of Systems Const All systems reviewed & are unremarkable except as noted in HPI and below Reports no additional complaints Eyes Reports no additional complaints ENT Reports no additional complaints Card Reports no additional complaints Resp Reports no additional complaints GI Reports no additional complaints Reports as per HPI Musc Reports no additional complaints Skin/Breast Reports system reviewed and no additional complaints, except as documented Neuro Reports no additional complaints Psych Reports no additional complaints Endo Reports no additional complaints Dylan/Lymph Reports no additional complaints Aller/Immun Reports no additional complaints Office Procedures Bladder/Catheter Procedure Details: 20 fr SP tube placed. Upsized from 18 wallisian [id number] Cystotomy Tube, complicated Procedure code (CPT) selection complete Assessment & Plan Assessment & Plan (1) Retention of urine, unspecified: Code(s): R33.9 - Retention of urine, unspecified (2) H/O stroke associated with blood clotting tendency: Code(s): Z86.73 - Personal history of transient ischemic attack (TIA), and cerebral infarction without residual deficits (3) Neurogenic bladder: Code(s): N31.9 - Neuromuscular dysfunction of bladder, unspecified (4) Anticoagulant long-term use: Code(s): Z79.01 - MCFP (current) use of anticoagulants Plan Catheter upsized ot 20 wallisian today 10 mL in balloon by Dr. Cheema catheter to gravity drainage. proscar and doxazosin were discontinued on 10/03/[address] Lanza. Cont Vit C and Methanamine. Orders: Orders AMB Bladder/Catheter Procedure Today R33.9 - Retention of urine, unspecified Patient Instructions: It is a privilege to be allowed the opportunity to participate in the urologic care of your patient. If you have any questions or concerns regarding treatment for the above conditions please do not hesitate to contact me. The office telephone contact is [phone]. This note is constructed in part using voice recognition software. While every effort has been made to ensure accuracy surgery manager errors may have been included. Yours sincerely, Jese Stratton MD Coding Level of Care Code 07031-Txwy Fac sub, mod Diagnoses Retention of urine, unspecified R33.9 H/O stroke associated with blood clotting tendency Z86.73 Neurogenic bladder N31.9 Anticoagulant long-term use Z79.01 CPT Codes Bladder/Catheter Procedure - CPT: 24073-Vihkmo Cystotomy Tube, complicated ([id number])
== END 2024-11-05 10:30 | disposition home or self-care (01) ==
LOC: HO.HUSV 10:30
PROVIDERS: PCP Nurse Practitioner; Visit Provider Urology
DX: R33.9 Retention of urine, unspecified (principal); Z86.73 Personal history of transient ischemic attack (TIA), and cerebral infarction without residual deficits; N31.9 Neuromuscular dysfunction of bladder, unspecified; Z79.01 Long term (current) use of anticoagulants; Z43.5 Encounter for attention to cystostomy
CPT/HCPCS: 51710; 99309

== ENCOUNTER 2024-11-21 07:09 | Outpatient (REF) | payer MEDICARE, SELFPAY ==
[2024-11-21 07:15] LABS: MANUAL DIFF FLAG NO
[2024-11-21 07:25] LABS: Basophils Percent Auto 0.4 % (0-2); Eosinophils Absolute Auto 0.4 X10*3/uL (0.0-0.4); Eosinophils Percent Auto 3.5 % (0-4); Hematocrit 30.7 % (42.0-52.0); Hemoglobin 10.2 g/dl (14.0-18.0); Imm Gran Abs Auto 0.11 X10*3/uL (0.00-0.03); Imm Gran Pct Auto 1.1 % (0.0-0.4); Lymphocytes Absolute Auto 2.3 X10*3/uL (1.2-4.9); Mean Corpuscular HGB Conc 33.2 g/dl (31.0-36.0); Mean Corpuscular Hemoglobin 30.5 pg (27.0-33.0); Mean Corpuscular Volume 91.9 fL (80.0-98.0); Mean Platelet Volume 10.6 fL (9.4-12.4); Monocytes Absolute Auto 0.6 X10*3/uL (0.1-1.2); Monocytes Percent Auto 6.1 % (2-11); Neutrophils Absolute Auto 6.6 x10*3/uL (2.0-8.3); Neutrophils Percent Auto 65.9 % (45-73); Platelet Count 168 X10*3/uL (160-400); Red Blood Count 3.34 X10*6/uL (4.60-5.80); Red Cell Distribution Width 13.7 % (11.0-16.0)
[2024-11-21 07:39] LABS: Alanine Aminotransferase 14 U/L (0-40); Alkaline Phosphatase 111 U/L (39-117); Anion Gap 10 (12-20); Aspartate Amino Transferase 22 U/L (5-37); Bilirubin Direct 0.1 mg/dL (0.0-0.5); Bilirubin Total 0.4 mg/dL (0.0-1.0); Blood Urea Nitrogen 27 mg/dL (9-16); Calcium 9.2 mg/dL (8.4-10.2); Carbon Dioxide 22 mmol/L (22-29); Chloride 112 mmol/L (96-108); Estimated Glomerular Filt Rate > 60; Glucose Random 164 mg/dL (60-115); Potassium 4.2 mmol/L (3.3-5.1); Sodium 140 mmol/L (135-145)
== END 2024-11-21 07:10 | disposition home or self-care (01) ==
LOC: HO.HSH 07:09
PROVIDERS: Visit Provider Nurse Practitioner Acute Care
DX: E11.9 Type 2 diabetes mellitus without complications (principal)
CPT/HCPCS: 36415; 80053; 82248; 85025

== ENCOUNTER 2025-01-15 12:00 | Outpatient (REF) | payer MEDICARE, SELFPAY ==
[2025-01-15 12:09] LABS: MANUAL DIFF FLAG NO
[2025-01-15 12:18] LABS: Basophils Absolute Auto 0.1 X10*3/uL (0.0-0.2); Basophils Percent Auto 0.8 % (0-2); Eosinophils Absolute Auto 0.5 X10*3/uL (0.0-0.4); Eosinophils Percent Auto 4.3 % (0-4); Hematocrit 35.5 % (42.0-52.0); Imm Gran Abs Auto 0.13 X10*3/uL (0.00-0.03); Imm Gran Pct Auto 1.1 % (0.0-0.4); Lymphocytes Absolute Auto 2.9 X10*3/uL (1.2-4.9); Lymphocytes Percent Auto 24.1 % (20-40); Mean Corpuscular HGB Conc 33.8 g/dl (31.0-36.0); Mean Corpuscular Hemoglobin 30.8 pg (27.0-33.0); Mean Corpuscular Volume 91.3 fL (80.0-98.0); Mean Platelet Volume 10.9 fL (9.4-12.4); Monocytes Absolute Auto 0.7 X10*3/uL (0.1-1.2); Neutrophils Absolute Auto 7.8 x10*3/uL (2.0-8.3); Neutrophils Percent Auto 63.7 % (45-73); Platelet Count 197 X10*3/uL (160-400); Red Blood Count 3.89 X10*6/uL (4.60-5.80); Red Cell Distribution Width 13.2 % (11.0-16.0); White Blood Count 12.2 X10*3/uL (4.8-10.8)
[2025-01-15 12:22] LABS: Appearance Urine Cloudy; Color Urine DK YELLOW; Glucose Urine UA Negative (Negative); Leukocyte Esterase Urine Small (1+) (Negative); Nitrite Urine Negative (Negative); PH 5.5 (5.0-9.0); UMIC TRIGGER UACC YES; Urine Blood Large (3+) (Negative); Urine Ketones Negative (Negative); Urine Protein 300 (3+) mg/dL (Neg-Trace)
[2025-01-15 12:36] LABS: Bacteria Urine Trace (None Seen); RBC Urine >20 /HPF (0-2); Squamous Epithelial Cell Urine 0-2 /HPF (0-2); UACC Culture Trigger YES
[2025-01-15 12:37] LABS: Alanine Aminotransferase 23 U/L (0-40); Albumin Level 3.4 g/dL (3.5-5.0); Alkaline Phosphatase 127 U/L (39-117); Anion Gap 10 (12-20); Aspartate Amino Transferase 23 U/L (5-37); Bilirubin Total 0.4 mg/dL (0.0-1.0); Blood Urea Nitrogen 29 mg/dL (9-16); Calcium 9.9 mg/dL (8.4-10.2); Carbon Dioxide 26 mmol/L (22-29); Chloride 107 mmol/L (96-108); Estimated Glomerular Filt Rate > 60; Glucose Random 205 mg/dL (60-115); Potassium 4.5 mmol/L (3.3-5.1); Sodium 138 mmol/L (135-145); Total Protein 6.4 g/dL (6.5-8.0)
[2025-01-15 13:01] LABS: INTERNATIONAL NORM RATIO 1.7 (0.9-1.1); Prothrombin Time 19.3 SEC (10.9-12.4)
== END 2025-01-15 12:01 | disposition home or self-care (01) ==
LOC: HO.HSH3E 12:00
PROVIDERS: Visit Provider Nurse Practitioner Acute Care
DX: R33.9 Retention of urine, unspecified (principal); R31.9 Hematuria, unspecified
CPT/HCPCS: 36415; 80053; 81001; 85025; 85610; 87086; 87088; 87186

== ENCOUNTER 2025-01-28 06:15 | Outpatient (REF) | payer MEDICARE, SELFPAY ==
[2025-01-28 06:37] LABS: Estimated Average Glucose 183 mg/dL; Hemoglobin A1C 177.8979 umol/L; Total Hemoglobin (HGBA1C) 2784.2811 umol/L
== END 2025-01-28 06:16 | disposition home or self-care (01) ==
LOC: HO.HSH3E 06:15
PROVIDERS: Visit Provider Nurse Practitioner
DX: E11.9 Type 2 diabetes mellitus without complications (principal)
CPT/HCPCS: 36415; 83036

== ENCOUNTER 2025-03-04 06:37 | Outpatient (REF) | payer MEDICARE, SELFPAY ==
[2025-03-04 06:40] LABS: MANUAL DIFF FLAG NO
--- OUTSIDE RECORDS SUMMARY | 2025-03-04 06:40 | XMS_ITS | Patient Health Record ---
[facility] Address [address] [place] [phone] Support Name Relationship Address Phone PABLITO HARGROVE Guarantor Unknown Reason For Referral No Information Plan Of Treatment No Information
[2025-03-04 06:53] LABS: Basophils Absolute Auto 0.1 X10*3/uL (0.0-0.2); Basophils Percent Auto 0.8 % (0-2); Eosinophils Absolute Auto 0.3 X10*3/uL (0.0-0.4); Eosinophils Percent Auto 3.6 % (0-4); Hematocrit 32.8 % (42.0-52.0); Imm Gran Abs Auto 0.05 X10*3/uL (0.00-0.03); Imm Gran Pct Auto 0.7 % (0.0-0.4); Lymphocytes Absolute Auto 2.1 X10*3/uL (1.2-4.9); Lymphocytes Percent Auto 27.4 % (20-40); Mean Corpuscular HGB Conc 33.5 g/dl (31.0-36.0); Mean Corpuscular Hemoglobin 31.4 pg (27.0-33.0); Mean Corpuscular Volume 93.7 fL (80.0-98.0); Monocytes Absolute Auto 0.5 X10*3/uL (0.1-1.2); Monocytes Percent Auto 7.1 % (2-11); Neutrophils Absolute Auto 4.6 x10*3/uL (2.0-8.3); Neutrophils Percent Auto 60.4 % (45-73); Platelet Count 130 X10*3/uL (160-400); Red Cell Distribution Width 13.2 % (11.0-16.0); White Blood Count 7.6 X10*3/uL (4.8-10.8)
[2025-03-04 07:14] LABS: Albumin Level 3.3 g/dL (3.5-5.0); Alkaline Phosphatase 130 U/L (39-117); Anion Gap 11 (12-20); Aspartate Amino Transferase 29 U/L (5-37); Bilirubin Total 0.2 mg/dL (0.0-1.0); Blood Urea Nitrogen 29 mg/dL (9-16); Calcium 9.5 mg/dL (8.4-10.2); Carbon Dioxide 21 mmol/L (22-29); Chloride 112 mmol/L (96-108); Estimated Glomerular Filt Rate > 60; Glucose Random 357 mg/dL (60-115); Magnesium 1.5 mg/dL (1.6-2.6); Potassium 5.1 mmol/L (3.3-5.1); Sodium 139 mmol/L (135-145); Total Protein 5.9 g/dL (6.5-8.0)
[2025-03-04 08:03] LABS: Alanine Aminotransferase 32 U/L (0-40)
== END 2025-03-04 06:38 | disposition home or self-care (01) ==
LOC: HO.HSH3E 06:37
PROVIDERS: Visit Provider Nurse Practitioner
DX: R41.82 Altered mental status, unspecified (principal)
CPT/HCPCS: 36415; 80053; 83735; 85025

== ENCOUNTER 2025-04-28 06:38 | Outpatient (REF) | payer MEDICARE, SELFPAY ==
[2025-04-28 06:40] LABS: MANUAL DIFF FLAG NO
--- OUTSIDE RECORDS SUMMARY | 2025-04-28 06:40 | XMS_ITS | Patient Health Record ---
[facility] Address [address] [place] [phone] Support Name Relationship Address Phone PABLITO HARGROVE Guarantor Unknown [phone] Reason For Referral No Information Plan Of Treatment No Information
[2025-04-28 07:02] LABS: Anion Gap 12 (12-20); Blood Urea Nitrogen 41 mg/dL (9-16); Calcium 9.5 mg/dL (8.4-10.2); Carbon Dioxide 24 mmol/L (22-29); Chloride 109 mmol/L (96-108); Estimated Glomerular Filt Rate 51; Potassium 4.5 mmol/L (3.3-5.1); Sodium 140 mmol/L (135-145)
[2025-04-28 07:05] LABS: Hematocrit 32.0 % (42.0-52.0); Hemoglobin 10.5 g/dl (14.0-18.0); Imm Gran Abs Auto 0.08 X10*3/uL (0.00-0.03); Imm Gran Pct Auto 0.7 % (0.0-0.4); Lymphocytes Absolute Auto 1.4 X10*3/uL (1.2-4.9); Mean Corpuscular HGB Conc 32.8 g/dl (31.0-36.0); Mean Corpuscular Hemoglobin 30.7 pg (27.0-33.0); Mean Corpuscular Volume 93.6 fL (80.0-98.0); NRBC Abs Auto 0.000 X10*3/uL (0.0-0.012); NRBC Pct Auto 0.0 /100WBC (0.0-0.2); Platelet Count 148 X10*3/uL (160-400); Red Blood Count 3.42 X10*6/uL (4.60-5.80); White Blood Count 11.9 X10*3/uL (4.8-10.8)
== END 2025-04-28 06:39 | disposition home or self-care (01) ==
LOC: HO.HSH3E 06:38
PROVIDERS: Internal Medicine Interventional Cardiology; Visit Provider Nurse Practitioner
DX: Z03.89 Encounter for observation for other suspected diseases and conditions ruled out (principal)
CPT/HCPCS: 36415; 80048; 85025

== ENCOUNTER 2025-05-05 07:33 | Outpatient (REF) | payer MEDICARE, SELFPAY ==
[2025-05-05 07:36] LABS: MANUAL DIFF FLAG NO
--- OUTSIDE RECORDS SUMMARY | 2025-05-05 07:36 | XMS_ITS | Patient Health Record ---
[facility] Address [address] [place] [phone] Support Name Relationship Address Phone PABLITO HARGROVE Guarantor Unknown Reason For Referral No Information Plan Of Treatment No Information
[2025-05-05 08:02] LABS: Hematocrit 31.2 % (42.0-52.0); Hemoglobin 10.0 g/dl (14.0-18.0); Imm Gran Abs Auto 0.20 X10*3/uL (0.00-0.03); Imm Gran Pct Auto 2.0 % (0.0-0.4); Lymphocytes Absolute Auto 2.3 X10*3/uL (1.2-4.9); Mean Corpuscular HGB Conc 32.1 g/dl (31.0-36.0); Mean Corpuscular Hemoglobin 30.2 pg (27.0-33.0); Mean Corpuscular Volume 94.3 fL (80.0-98.0); NRBC Abs Auto 0.000 X10*3/uL (0.0-0.012); NRBC Pct Auto 0.0 /100WBC (0.0-0.2); Platelet Count 184 X10*3/uL (160-400); Red Blood Count 3.31 X10*6/uL (4.60-5.80); White Blood Count 10.0 X10*3/uL (4.8-10.8)
[2025-05-05 08:16] LABS: Anion Gap 11 (12-20); Blood Urea Nitrogen 35 mg/dL (9-16); Calcium 9.6 mg/dL (8.4-10.2); Carbon Dioxide 24 mmol/L (22-29); Chloride 110 mmol/L (96-108); Estimated Glomerular Filt Rate > 60; Potassium 4.5 mmol/L (3.3-5.1); Sodium 140 mmol/L (135-145)
== END 2025-05-05 07:34 | disposition home or self-care (01) ==
LOC: HO.HSH3E 07:33
PROVIDERS: Visit Provider Nurse Practitioner
DX: R19.7 Diarrhea, unspecified (principal)
CPT/HCPCS: 36415; 80048; 85025

== ENCOUNTER 2025-06-23 06:58 | Outpatient (REF) | payer MEDICARE, SELFPAY ==
[2025-06-23 07:01] LABS: MANUAL DIFF FLAG NO
[2025-06-23 07:20] LABS: Hematocrit 30.2 % (42.0-52.0); Hemoglobin 10.0 g/dl (14.0-18.0); Imm Gran Abs Auto 0.08 X10*3/uL (0.00-0.03); Imm Gran Pct Auto 0.9 % (0.0-0.4); Lymphocytes Absolute Auto 2.0 X10*3/uL (1.2-4.9); Mean Corpuscular HGB Conc 33.1 g/dl (31.0-36.0); Mean Corpuscular Hemoglobin 31.0 pg (27.0-33.0); Mean Corpuscular Volume 93.5 fL (80.0-98.0); NRBC Abs Auto 0.000 X10*3/uL (0.0-0.012); NRBC Pct Auto 0.0 /100WBC (0.0-0.2); Platelet Count 182 X10*3/uL (160-400); Red Blood Count 3.23 X10*6/uL (4.60-5.80); White Blood Count 9.0 X10*3/uL (4.8-10.8)
[2025-06-23 07:39] LABS: Alanine Aminotransferase 44 U/L (0-40); Albumin Level 3.0 g/dL (3.5-5.0); Alkaline Phosphatase 143 U/L (39-117); Anion Gap 10 (12-20); Aspartate Amino Transferase 30 U/L (5-37); Blood Urea Nitrogen 32 mg/dL (9-16); Calcium 9.7 mg/dL (8.4-10.2); Carbon Dioxide 24 mmol/L (22-29); Chloride 109 mmol/L (96-108); Estimated Glomerular Filt Rate > 60; Lipase 10 U/L (8-78); Potassium 4.6 mmol/L (3.3-5.1); Sodium 138 mmol/L (135-145); Total Protein 5.9 g/dL (6.5-8.0)
== END 2025-06-23 06:59 | disposition home or self-care (01) ==
LOC: HO.HSH3E 06:58
PROVIDERS: Visit Provider Internal Medicine
DX: E11.22 Type 2 diabetes mellitus with diabetic chronic kidney disease (principal); N18.30 Chronic kidney disease, stage 3 unspecified; E11.59 Type 2 diabetes mellitus with other circulatory complications
CPT/HCPCS: 36415; 80053; 83690; 85025

== ENCOUNTER 2025-08-27 09:26 | Outpatient (AMB) | payer MEDICARE, SELFPAY ==
--- NOTE | 2025-08-27 09:33 | MHC.OFFVIS ---
Intake Visit Reasons: follow up SPT Intake Note: Patient is present for SPT F/U Urology Medication:VITMAMIN C Antibiotic Allergy:NONE Blood Thinner:APIXABAN Area Coordinator Required: No Allergies No Known Allergies Allergy (Verified 08/27/25 21:36) Medication List - Last Reconciled 09/01/25 by BETHANY Zuniga acetaminophen 650 mg PO Q4H PRN amlodipine 5 mg See Protocol PO DAILY apixaban (Eliquis) 5 mg PO BID atorvastatin 40 mg PO QPM calcium carbonate 1,000 mg PO Q4H PRN fentanyl 12 mcg/hr 1 patch transdermal Q72H gabapentin 100 mg PO BID insulin glargine 45 units subcut DAILY insulin lispro 6 units subcut DAILY@1200 PRN melatonin 3 mg PO BEDTIME PRN methenamine hippurate 1 g PO BID naloxone 4 mg/actuation 4 mg intranasal Q3M PRN ondansetron HCl 4 mg PO BID PRN sennosides (senna) 17.2 mg PO BEDTIME PRN terbinafine HCl 1% 1 appl topical BID PRN HPI Comments Details: Ed is a pleasant 84-year-old male patient of Dr. Rodriguez. He is a resident of [facility]. He has a past medical history of [id number] left amputee, chronic AFib, dementia, GERD, depression, type 2 diabetes, chronic kidney disease, hypertension, hyperlipidemia, atherosclerotic heart disease, peripheral vascular disease, and overflow incontinence. He is being followed up on today for his history of lower urinary tract symptoms with incomplete bladder emptying and elevated PSA. In assessment of the patient today he reports to be doing and feeling well. He denies any bothersome urinary issues or concerns. Suprapubic tube site appears clean dry and intact. Catheter draining semi dark-colored urine. We did discuss adequate hydration. Patient and staff deny any bothersome urinary issues. The patient does as discuss his longstanding history of incomplete bladder emptying. In review of patient's chart it does appear he is compliant with methenamine however no vitamin-C is noted. PSA 06/17 2.7, 01/15 5.3 free PSA 0.8 Lower urinary tract symptoms Previously seen by Urology in [place] Prior urinary retention in PVR ranging from 250-600 cc Prior history of indwelling Ni catheter 2020 for urinary retention Prior medications include doxazosin 2 mg and tamsulosin 0.8 mg Imaging - 06/17 bladder ultrasound incomplete bladder emptying [facility] Medical History Below knee amputation Chronic atrial fibrillation, unspecified Unspecified dementia, unspecified severity, without behavioral disturbance, psychotic disturbance, mood disturbance, and anxiety Gastro-esophageal reflux disease without esophagitis Major depressive disorder, recurrent, mild Unspecified osteoarthritis, unspecified site Type 2 diabetes mellitus without complications Personal history of COVID-19 Type 2 diabetes mellitus with other circulatory complications Chronic kidney disease, stage 3 unspecified Essential (primary) hypertension Retention of urine, unspecified Hyperlipidemia, unspecified Benign prostatic hyperplasia without lower urinary tract symptoms Atherosclerotic heart disease of [place] coronary artery without angina pectoris 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 Acquired absence of left leg below knee Peripheral vascular disease, unspecified Surgical History Presence of aortocoronary bypass graft Social History Housing: Half-Way Alcohol intake: never Patient Tobacco Use Status: Never used Tobacco service: Yes Physical Exam Const General: cooperative, comfortable, no acute distress, well developed, alert and awake Nutritional Appearance: overweight Orientation/consciousness: oriented to person Limitations: other limitations (Prosthesis) HEENT Head: Yes normal to inspection Eyes General: appearance normal, both eyes and all related structures Neck Neck: Yes normal visual inspection Chest Chest palpation & inspection: normal inspection of the chest Resp Effort & Inspection: normal respiratory effort and able to speak in complete sentences Cardio Rate: regular rate GI Inspection: Yes normal to inspection Other: Suprapubic tube site appears to be healing well; as per HPI Back/Spine/Pelvis Other: Chronic back pain Skin General skin exam: no rashes or lesions noted Neuro General: oriented to person Extrem Other: As per HPI Psych Appearance: grossly normal and well kempt Speech and movement: Pressured speech present Affect: normal affect Attitude: cooperative Thought content: Normal thought content present Insight: Fair insight present (Psych) Judgement: Fair judgement present (Psych) Assessment & Plan Assessment & Plan (1) Elevated PSA: Code(s): R97.20 - Elevated prostate specific antigen [PSA] Category: Medical (2) Neurogenic bladder: Code(s): N31.9 - Neuromuscular dysfunction of bladder, unspecified Category: Medical (3) Incomplete bladder emptying: Code(s): R33.9 - Retention of urine, unspecified Category: Medical (4) Retention of urine, unspecified: Code(s): R33.9 - Retention of urine, unspecified Category: Medical (5) Overflow incontinence: Code(s): N39.490 - Overflow incontinence Category: Medical Plan Suprapubic tube; clean dry and intact. Encouraged water intake. Patient and staff deny any urological issues or concerns at this time. Continue methenamine Restart vitamin-C a 1000 mg daily. Continue catheter changes as ordered. All questions were answered. Obtain PSA. Follow-up in 6 months with PSA; or sooner with any issues, concerns, and or questions. Patient Instructions: The patient had an opportunity to ask questions regarding the treatment plan. All questions were answered. Physical exam, labs, and imaging were discussed and reviewed in detail. As well as risks, benefits, and discussion of treatment choices. No major barriers to understanding were identified. The patient expressed understanding and agreement with the above treatment plan. The patient was made aware they should contact our office by phone for worsening of their current condition, the appearance of new symptoms, or with any questions or concerns. Compliance is encouraged with any medications and follow up testing that is ordered. It is a privilege to be allowed the opportunity to participate in? your urological care.? Again, if you have any questions or concerns If you have any questions or concerns please do not hesitate to contact me. The office is [phone]. This note is constructed using voice recognition software. While every effort has been made to ensure accuracy compensation administrator errors may have been included. Yours sincerely, BETHANY Zuniga Coding Level of Care Code Est Pt Level 3 (08131) Complex visit Add On G2211 Diagnoses Elevated PSA R97.20 Neurogenic bladder N31.9 Incomplete bladder emptying R33.9 Retention of urine, unspecified R33.9 Overflow incontinence N39.490
== END 2025-08-27 16:30 | disposition home or self-care (01) ==
LOC: HO.HUSV 09:26
PROVIDERS: PCP Nurse Practitioner; Visit Provider Nurse Practitioner Family
DX: R97.20 Elevated prostate specific antigen [PSA] (principal); N31.9 Neuromuscular dysfunction of bladder, unspecified; R33.9 Retention of urine, unspecified; N39.490 Overflow incontinence
CPT/HCPCS: 99212; 99213; G2211

== ENCOUNTER 2025-09-04 06:07 | Outpatient (REF) | payer MEDICARE, SELFPAY ==
--- OUTSIDE RECORDS SUMMARY | 2025-09-04 06:10 | XMS_ITS | Patient Health Record ---
[facility] Address [address] [place] [id number] Support Name Relationship Address Phone PABLITO HARGROVE Guarantor Unknown Reason For Referral No Information Plan Of Treatment No Information
[2025-09-04 06:34] LABS: Hematocrit 30.9 % (42.0-52.0); Hemoglobin 10.3 g/dl (14.0-18.0); Mean Corpuscular HGB Conc 33.3 g/dl (31.0-36.0); Mean Corpuscular Hemoglobin 30.4 pg (27.0-33.0); Mean Corpuscular Volume 91.2 fL (80.0-98.0); NRBC Abs Auto 0.000 X10*3/uL (0.0-0.012); NRBC Pct Auto 0.0 /100WBC (0.0-0.2); Platelet Count 165 X10*3/uL (160-400); Red Blood Count 3.39 X10*6/uL (4.60-5.80); White Blood Count 9.2 X10*3/uL (4.8-10.8)
[2025-09-04 06:54] LABS: Alanine Aminotransferase 33 U/L (0-40); Albumin Level 3.0 g/dL (3.5-5.0); Alkaline Phosphatase 116 U/L (39-117); Anion Gap 9 (12-20); Aspartate Amino Transferase 33 U/L (5-37); Blood Urea Nitrogen 40 mg/dL (9-16); Calcium 9.8 mg/dL (8.4-10.2); Carbon Dioxide 24 mmol/L (22-29); Chloride 111 mmol/L (96-108); Cholesterol 98 mg/dL (<200); Estimated Glomerular Filt Rate > 60; HDL Cholesterol 16 mg/dL (>40); Potassium 4.1 mmol/L (3.3-5.1); Sodium 140 mmol/L (135-145); Total Protein 5.7 g/dL (6.5-8.0); Triglycerides 117 mg/dL (<150)
== END 2025-09-04 06:08 | disposition home or self-care (01) ==
LOC: HO.HSH3E 06:07
PROVIDERS: Visit Provider Nurse Practitioner
DX: Z13.89 Encounter for screening for other disorder (principal)
CPT/HCPCS: 36415; 80053; 80061; 83036; 85027